=== PATIENT | male | born 1955 | race Caucasian/White ===

== ENCOUNTER 2025-05-04 13:57 | Outpatient (REF) | payer MEDICARE, SELFPAY ==
--- OUTSIDE RECORDS SUMMARY | 2025-05-04 15:16 | XMS_ITS ---
Author Organization [facility] Care Team Providers Care Fruit Shipper Name Role Phone Bagley, Aron Unavailable Unavailable Allergies and adverse reactions Code CodeSystem Substance Reaction Severity StartDate Concern Status 4053 RXNORM Erythromycin Unknown Unknown active Care Team Name Role Address Phone Organization Dates Aron Bagley [address] [place], [address], [place] States (Office): : [facility] 11/08/2015 - 11/12/2015 Immunizations Immunization Status Vaccine Details Vaccine Code CodeSystem Date Notes Influenza completed Influenza, high-dose, split virus, quadrivalent, injectable, preservative free 197 CVX created date: 11/10/2015 administer ed date: 07/22/2015 Pneumovax Dose 1 aborted cre ated date: 11/10/2015 consent date: 11/10/2015 AGE TB 2 Step Mantoux Skin Test completed tuberculin skin test; unspecified formulation lotNumber: [id number] expiry: 01/19/2017 Mfg: tuberculin Given 0.1 ml Right Forearm intradermally Step 1 of Multi-step with next step required 98 CVX created date: 11/09/2015 consent date: 11/09/2015 administer ed date: 11/09/2015 Educated by MARIAM on 11/09/2015 Prevnar-13 aborted created date: 11/10/2015 consent date: 11/10/2015 AGE Medications Section Medication Name Status Code CodeSystem Dose Route Frequency Admin Type Sig Text Start Date End Date DiphenhydrAMI NE HCl Tablet 25 MG active 5660627 RXNORM 25 mg Oral as needed PRN Give 25 mg by mouth as needed for Insomn ia PRN HS 2015 - Albuterol Sulfate Aerosol Powder Breath Activated 108 (90 Base) MCG/ACT active 7670648 RXNORM 2 puff Inhalat ion as needed PRN 2 puff inhale orally every 4 hours as needed for SOB/Wh eeze unsupe rvised self-a dminis tratio n 2015 - Glucagon Emergency Kit 1 MG active 009856 RXNORM 1 mg Intramu scular as needed PRN Inject 1 mg intram uscula rly as needed for hypogl ycemia For FS<60 and pt unable to take by mouth 2015 - Aspirin EC Tablet Delayed Release active 325 mg Oral every 12 hours Routine Give 325 mg by mouth every 12 hours for antico agulan t 2015 - Docusate Sodium Tablet active 100 mg Oral two times a day Routine Give 100 mg by mouth two times a day for Consti pation 2015 - FerrouSul Tablet active 325 mg Oral two times a day Routine Give 325 mg by mouth two times a day for Supple ment 2015 - Multivital Tablet active 1 tablet Oral two times a day Routine Give 1 tablet by mouth two times a day for Supple ment 2015 - Acetaminophen Tablet 325 MG active 923045 RXNORM 2 tablet Oral as needed PRN Give 2 tablet by mouth every 4 hours as needed for genera l discom fort NTE 3GM/24 H 2015 - Milk of Magnesia Concentrate Suspension active 30 ml Oral as needed PRN Give 30 ml by mouth as needed for Consti pation if no BM by 9th shift 2015 - Bisacodyl Suppository 10 MG active 294078 RXNORM 1 suppos itory Rectal as needed PRN Insert 1 suppos itory rectal ly as needed for Consti pation by the next shift if no result s from [facility] 2015 - Fleet Enema active 1 applic ation Rectal as needed PRN Insert 1 applic ation rectal ly as needed for Consti pation if no BM within 4 hours after SUPP admini stered . 2015 - CarBAMazepine ER Tablet Extended Release 12 Hour 400 MG active 553334 RXNORM 400 mg Oral two times a day Routine Give 400 mg by mouth two times a day for Nerve pain 2015 - DULoxetine HCl Capsule Delayed Release Particles 60 MG active 400694 RXNORM 60 mg Oral one time a day Routine Give 60 mg by mouth one time a day for Depres nury 2015 - Lipitor Tablet active 80 mg Oral at bedtime Routine Give 80 mg by mouth at bedtim e for Hyperl ipidem ia 2015 - MetFORMIN HCl Tablet active 1000 mg Oral two times a day Routine Give 1000 mg by mouth two times a day for DM 2015 - LOSARTAN POT 25MG TABLET active 746194 RXNORM 25 mg Oral at bedtime Routine Give 25 mg by mouth at bedtim e for HTN 2015 - OMEPRAZOLE 20MG CAPSULE DR active 540501 RXNORM 20 mg Dental in the morning Routine 20 mg dental in the mornin g for Ulcers 2015 - Sennosides-Do cusate Sodium Tablet 8.6-50 MG active 541132 RXNORM 2 tablet Oral at bedtime Routine Give 2 tablet by mouth at bedtim e for Consti pation 2015 - OxyCODONE HCl Tablet active 5 mg Oral as needed PRN Give 5 mg by mouth every 4 hours as needed for Pain modera te pain AND Give 10 mg by mouth every 4 hours as needed for Pain severe pain 2015 - 10 mg Oral as needed PRN Give 5 mg by mouth every 4 hours as needed for Pain modera te pain AND Give 10 mg by mouth every 4 hours as needed for Pain severe pain 2015 - Mental Status Section Date Assessment Total Score Description 11/12/2015 BIMS 15 cognitively int act PHQ-9 00 Problems Problem # Description Date of onset Resolved Date Code CodeSystem Concern Status 1 BILATERAL PRIMARY OSTEOARTHRITIS OF KNEE 11/08/20152017756161891 SNOMED CT active 2 ESSENTIAL (PRIMARY) HYPERTENSION 11/08/[address] active 3 GASTRO-ESOPHAGEAL REFLUX DISEASE WITHOUT ESOPHAGITIS 11/08/[address] active 4 HYPERLIPIDEMIA, UNSPECIFIED 11/08/[address] active 5 TYPE 2 DIABETES MELLITUS WITHOUT COMPLICATIONS 11/08/[address] active 6 UNSPECIFIED ASTHMA, UNCOMPLICATED 11/08/[address] active Reason for Referral No Reasons for Referral Entered Social History Social History Observation Description Start Date End Date Code Code System Current Smoking Status Tobacco smoking consumption unknown 922792486 SNOMED CT Sex Assigned At Male 1955 02548-3 [facility] Gender Identity Vital Signs Code Code System Vitals Name Values and Units Timing Information 9279-1 [facility] Respiratory Rate Value=22.0 Units=/m in 11/12/2015 8462-4 [facility] Blood Pressure-Diastolic Value=82 Un its=mmHg 11/12/2015 8480-6 [facility] Blood Pressure-Systolic Vegyh=967 Un its=mmHg 11/12/2015 8310-5 [facility] Body Temperature Value=99.0 Units= F 11/12/2015 8867-4 [facility] Heart rate Value=88.0 Units=/min 64167-8 [facility] O2 % dC Oximetry Value=96.0 Units= % 11/12/2015 00600-5 [facility] Weight Rlzsr=061.0 Units=Lbs 95634-7 [facility] Pain Level Value=6.0 11/12/2015 2339-0 [facility] Blood Sugar Ephuq=435.0 Units=mg/dL 11/12/2015
--- OUTSIDE RECORDS SUMMARY | 2025-05-04 15:16 | XMS_ITS | Patient Health Record ---
Author Organization [facility] Address [address] [address] Care Team Providers Care International Sales Representative Name Role Phone Abdon Poole Primary Care Provider Unavailabl Marcello Ochoa Unavailable [phone] Alcocer, Tosha Unavailable [phone] Allergies Allergen (clinical drug ingredient) Drug/Non Drug Allergy documented on EMR Reaction Allergy Type Onset Date Status erythromycin Erythromycin Unknown Drug Allergy A ctive Macrolides and Ketolides Unknown Drug Allergy Active Reason For Referral Reason YURI Referring Provider First Name Abdon Referring Provider Last Name Zulema Referred Organization [facility] Referred Provider Marcello Patel Referred Address [address] [facility], [place],[address], Referred Provider Specialty Pulmonology General Notes Nicci Ruelas 2023 12:25:31 PM >Left voicemajesseSuraj Alisha 10/20/2024 09:53:01 AM >Appt scheduled for Nov 06 2:45pm. Referral Priority Routine Medications Medication SIG (Take, Route, Frequency, Duration) Notes Start Date End Date Status Minocycline HCl 100 MG Capsule TAKE 1 CAPSULE BY MOUTH TWICE A DAY Oral; Duration: 45 Days Active Mag Glycinate 100 MG Tablet 600 mg Orall y twice daily Active BD Disp Needle 23G X 1 Miscellaneous USE DIRECTED TO INJECT WEEKLY IM; Duration: 90 Days Active Famotidine 20 MG Tablet TAKE 1 TABLET BY MOUTH 2 TIMES A DAY NEEDED FOR HEARTBURN. Oral; Duration: 90 Days Active DULoxetine HCl 60 MG Capsule Delayed Release Particles 1 capsule Orally Once a day; Duration: 30 days 11/06/2024 Active amLODIPine Besylate 5 MG Tablet Oral; Duration: 90 Days Acti ve Belbuca 750 MCG Film 1 film Buccal every 12 hrs; Duration: 30 days Active metFORMIN HCl 1000 MG Tablet 1 tablet wi th a meal Orally Once a day; Duration: 30 day(s) 11/06/2024 Active carBAMazepine 200 MG Tablet Oral; Duration: 90 Days Active Social History Tobacco Use: Social History Observation Description Date Details (start date - stop date) Never Smoker NA - NA Social History Tobacco Use: Social Info Question Answer Notes Tobacco Control (Standard) Tobacco use: Nonsmoker Additional Details Category Social Info Options Details Drug/Alcohol: Do you smoke marijuana? Den ies Do you drink alcohol? No Problems Problem Type SNOMED Code ICD Code Onset Dates Problem Status W/U Status Risk Notes Problem Type 2 diabetes mellitus with other specified complication (E11.69) Active confirmed Problem Mixed hyperlipidemia (364435981) Mixed hyperlipidemia (E78.2) Active confirmed Problem Chronic pain syndrome (358897724) Chronic pain syndrome (G89.4) Active confirmed Problem Essential hypertension (55449827) Essential hypertension (I10) Active confirmed Problem Seasonal allergy (475679017) Seasonal allergies (J30.2) Active confirmed Vital Signs Heart Rate 72 /min 04/03/2025 Temperature 98.2 degrees Fahrenheit 04/03/2025 Blood pressure diastolic 60 mm Hg 04/03/2025 Oximetry 92 % 04/03/2025 Height-cm 170.18 cm 02/02/2025 Weight-kg 78.02 kg 04/03/2025 Height 5 ft 7 in in 04/03/2025 Blood pressure systolic 130 mm Hg 04/03/2025 Weight 172 lbs 04/03/2025 BMI 26.94 kg/m2 04/03/2025 Procedures Procedure Date Ordered Date Performed Result Body Sit e ABG 04/03/2025 04/14/2025 N/A Encounters Encounter Location Date Provider Diagnosis [facility] [address] [place] [id number] 11/06/2024 Marcello Patel Mixed sleep apnea G47.39 ; Chronic pain syndrome G89.4 ; Transverse myelitis G37.3 and Essential hypertension I10 [facility] [address] [place] [phone] 02/02/2025 Tosha Alcocer Mixed sleep apnea G47.39 ; Chronic pain syndrome G89.4 ; Transverse myelitis G37.3 and Essential hypertension I10 [facility] [address] [address] 04/03/2025 Tosha Alcocer Mixed sleep apnea G47.39 ; Chronic pain syndrome G89.4 ; Transverse myelitis G37.3 ; Essential hypertension I10 and Seasonal allergies J30.2 [facility] [address] [address] 11/06/2024 Marcello Patel [facility] [address] [place] [address] 04/03/2025 Marcello Patel [facility] [address] [address] 04/14/2025 Marcello Patel Assessments Encounter Date Diagnosis (ICD Code) Assessment Notes Treatment Notes Treatment Clinical Notes Section Notes 11/06/2024 Mixed sleep apnea (ICD-10 - G47.39) Assessment & Plan: 1. Severe MIXED sleep apnea - Suspected high component of central sleep apnea, possibly Induced by buprenorphine; home sleep study limited in distinguishing central events. I recommended split in lab study but patient states that he cannot do it at all due to his severe back pain. He is not able to sleep on a regular bed. - Initiate auto CPAP therapy via DeNA, with in-person mask fitting and device education.I will follow him closely for residual apneic events. I recommended to discuss with his physician prescribing buprenorphine for alternative options if he continues to have central sleep apnea. - If unable to tolerate, consider BIPAP/ST, ASV (adaptive servo-ventilation) titration study in lab setting given high central apnea burden - Rn Field Case Manager on importance of adherence for MINIMUM -4 hours/night, EVERY NIGHT - Follow up after 1 month of therapy to review device data and assess for residual central apnea - Discussed hypoglossal nerve stimulator if unable to tolerate positive airway pressure therapy, however cautioned it would not address central apnea - Advised against use of ozone-based CPAP coffee grower due to risk of device malfunction, recommend gentle soap and water cleaning 2. Transverse myelitis - Manage CPAP therapy in the setting of positional challenges and neuropathic pain 3. Chronic pain - Consider slow buprenorphine taper if central apnea burden improves with CPAP - Avoid escalation of opioids which may worsen central sleep apnea 4. Hypertension - Continue current antihypertensive regimen - Potential for improvement in blood pressure control with treatment of sleep apnea 5. Tobacco use disorder - Rn Field Case Manager on smoking cessation, offer pharmacotherapy and behavioral support Recommended not to drive or operate machinery when drowsy 11/06/2024 Chronic pain syndrome (ICD-10 - G89.4) 02/02/2025 Mixed sleep apnea (ICD-10 - G47.39) Assessment & Plan: 1. Severe MIXED sleep apnea - Patient is compliant with his CPAP therapy and using 97% of the days with and average use of 6 hours daily over the last 30 months. Central apnea episodes also imropved from AI of 72 to 9.1. - Overall significant improvement noted with apnea hypopnea index Which improved from AHI of 51.1 to 12.4 - he overall doesnot feel significant improvement due to struggles with the CPAP mask but would encourage ongoing use, trail of different full face mask and f/u in next 6-8 weeks to ensure he is tolerating the mask well. - He has struggled with fullface mask due to irritation to tip of his nose and currently using nasal pillow however has been having issues with waking up with dry mouth, tried chin strap due causes discomfort. - provided him a sample of a fullface mask (AMENA) from the office to give it a try. - Suspected high component of central sleep apnea, possibly Induced by buprenorphine which he remains on 750 mcg bid regimen due to his transverse mylelitys; home sleep study limited in distinguishing central events. - has recommended split in lab study but patient states that he cannot do it at all due to his severe back pain. He is not able to sleep on a regular bed. - If unable to tolerate, consider BIPAP/ST, ASV (adaptive servo-ventilation) titration study in lab setting given high central apnea burden - Rn Field Case Manager on importance of adherence for MINIMUM -4 hours/night, EVERY NIGHT - Follow up after 2-3 month of therapy to review device data and assess for residual central apnea - Discussed hypoglossal nerve stimulator if unable to tolerate positive airway pressure therapy, however cautioned it would not address central apnea - Advised against use of ozone-based CPAP coffee grower due to risk of device malfunction, recommend gentle soap and water cleaning 2. Transverse myelitis with chronic pain - Manage CPAP therapy in the setting of positional challenges and neuropathic pain - Unable to wean of off buprenorphine, but central apnea burden seems to be improved with CPAP. - Avoid escalation of opioids which may worsen central sleep apnea 4. Hypertension - Continue current antihypertensive regimen - Potential for improvement in blood pressure control with treatment of sleep apnea 5. Tobacco use disorder - Rn Field Case Manager on smoking cessation. Recommended not to drive or operate machinery when drowsy 04/03/2025 Chronic pain syndrome (ICD-10 - G89.4) 04/03/2025 Mixed sleep apnea (ICD-10 - G47.39) Assessment & Plan: 1. Severe MIXED sleep apnea - Patient is not compliant with his CPAP therapy as he is not using it more than 4 hours daily with >4 h usage of 67% - He is not getting adequate therapy benefit as he is not using 67% of the days with and average use of 6 hours daily over the last 30 months. Central apnea episodes also imropved from AI of 72 to 9.1. - Overall significant improvement noted with apnea hypopnea index Which improved from AHI of 51.1 to 12.4 . - He has struggled with fullface mask due to irritation to tip of his nose and currently using nasal pillow however has been having issues with waking up with dry mouth, tried chin strap due causes discomfort. - provided him a sample of a fullface mask (AMENA) from the office to give it a try. - Consistently using it for more than 4 hours. We discussed the to get adequate benefit from his CPAP therapy he should be using it consistently for at least 7 hours nightly if possible. AHI still remains high, central apneas predominant and we discussed an option for in-lab titration study which he is not able to do due to his chronic pain and special bed requirement. He is in agreement to get ABG done to see if he is retaining CO2 more than 50 which would qualify him to transition to BiPAP therapy. We also discussed that changing the mask and using it more than 7 hours can improve his AHI. He will contact his DME to get a different nasal mask we discussed about AirFit N30 I as an option or can also try a fullface mask. He will follow-up with us in 3 months - He was given a sample of a fullface mask (AMENA) last visit as well - Suspected high component of central sleep apnea, possibly Induced by buprenorphine which he remains on 750 mcg bid regimen due to his transverse mylelitys; - If unable to tolerate, consider BIPAP/ST, ASV (adaptive servo-ventilation) titration study in lab setting given high central apnea burden - Counseled on importance of adherence for MINIMUM -4 hours/night, EVERY NIGHT - Follow up after 2-3 month of therapy to review device data and assess for residual central apnea - Discussed hypoglossal nerve stimulator if unable to tolerate positive airway pressure therapy, however cautioned it would not address central apnea 5. Tobacco use disorder - Rn Field Case Manager on smoking cessation. Recommended not to drive or operate machinery when drowsy 04/03/2025 Transverse myelitis (ICD-10 - G37.3) 2. Transverse myelitis with chronic pain - Manage CPAP therapy in the setting of positional challenges and neuropathic pain - Unable to wean of off buprenorphine, but central apnea burden seems to be improved with CPAP. - Avoid escalation of opioids which may worsen central sleep apnea 11/06/2024 Transverse myelitis (ICD-10 - G37.3) 02/02/2025 Chronic pain syndrome (ICD-10 - G89.4) 02/02/2025 Transverse myelitis (ICD-10 - G37.3) 11/06/2024 Essential hypertension (ICD-10 - I10) 04/03/2025 Essential hypertension (ICD-10 - I10) 4. Hypertension - Continue current antihypertensive regimen - Potential for improvement in blood pressure control with treatment of sleep apnea 04/03/2025 Seasonal allergies (ICD-10 - J30.2) Patient also has severe seasonal allergies he is seen by customs import specialist in [place]. He is getting allergy shots and says that despite this he has hard time controlling his allergies we discussed option for Singulair antihistamines like Xyzal however he has tried them in the past with no effect and is not interested. He also notes that due to worsening allergies his CPAP usage has also been interrupted on the days where he has severe allergy symptoms. 02/02/2025 Essential hypertension (ICD-10 - I10) 02/02/2025 Other Randal, Marcello Patel MD, directly supervised CARLOS Goins during the patient encounter. The patient was initially evaluated by me previously and has come for a follow up today. During today's visit, Tosha Alcocer performed patient history, physical exam, medication management under my direct supervision. I reviewed the patient's chart and agree with the assessment and treatment plan documented by Tosha Alcocer. Of note, some information is being carried forward from prior records for informational purposes only and is being cited so that efficiency, safety and quality of this patient's care is not compromised. Total time spent:30 minsDuring the day of the visit, time was spent including the following: Examining the patientChart review in preparation for the visitDocumenting in the patient recordReviewing Labs & RadiologyMedication Reconciliation 04/03/2025 Other I, Marcello Patel MD, directly supervised CARLOS Goins during the patient encounter. The patient was initially evaluated by me previously and has come for a follow up today. During today's visit, Tosha Alcocer performed patient history, physical exam, medication management under my direct supervision. I reviewed the patient's chart and agree with the assessment and treatment plan documented by Tosha Alcocer. Plan Of Treatment No Information Insurance Providers Payer Name Payer Address Payer Phone Subscriber Number Group Number Insured Name Patient Relationship to Insured Coverage Start Date Coverage End Date [employer] [address] [address] [place], [place] [id number] Max Garcia Self - patient is the insured 4 Medical (General) History Medical History History ICD Code Encounter for screening for malignant ne oplasm of prostate Z12.5 Encounter for screening for depression Z 13.31 History of falling Z91.81 Mixed hyperlipidemia E78.2 Type 2 diabetes mellitus with other spec ified complication E11.69
--- OUTSIDE RECORDS SUMMARY | 2025-05-04 15:16 | XMS_ITS ---
Author Name [facility] ([place], [place]) Organization Unknown Results Test Name/Text Value Interpretation Date Range Source GLYCOHEMOGLOBIN (A1C) 7.0 % Above high normal 0 5 4 - 5.6 [facility] MICROALBUMIN,URINE 0.7 mg/dL Normal 5 [facility] MICROALBUMIN RATIO 4.3 ug/mg Normal 5 - 30 [facility] CREATININE URINE 163.9 Normal 5 [facility] CALCIUM 9.7 mg/dL Normal 5 8.7 - 10.4 [facility] GLOBULIN 2.1 g/dL Below low normal 5 2.2 - 3.5 [facility] SODIUM 141.0 mmol/L Normal 5 136 - 145 [facility] GLUCOSE 139.0 mg/dL Above high normal 5 74 - 106 [facility] A/G RATIO 2.2 g/dL Normal 5 [facility] ALBUMIN 4.6 g/dL Normal 5 3.2 - 4.8 [facility] CO2 31.0 mmol/L Normal 5 20 - 31 [facility] BUN/CREAT.RATIO 19.1 Normal 5 [facility] ALT (SGPT) 18.0 U/L Normal 5 10 - 49 [facility] PROTEIN, TOTAL 6.7 g/dL Normal 5 5.7 - 8.2 [facility] ALKALINE PHOSPHATASE 81.0 U/L Normal 02 5 45 - 129 [facility] CHLORIDE 102.0 mmol/L Normal 5 98 - 107 [facility] BILIRUBIN,TOTAL 0.3 mg/dL Normal 5 0.3 - 1.2 [facility] AST (SGOT) 17.0 U/L Normal 5 0 - 34 [facility] CREATININE 1.1 mg/dL Normal 5 0.7 - 1.3 [facility] BUN 21.0 mg/dL Normal 5 9 - 23 [facility] POTASSIUM SERUM 5.2 mmol/L Above high normal 02 5 3.5 - 5.1 [facility] PATIENT FASTING? YES Normal 5 [facility] CHOLESTEROL 139.0 mg/dL Normal 5 - 200 [facility] HDL 67.0 mg/dL Normal 5 60 - [facility] TRIGLYCERIDE WITH LDLD REFLEX 95.0 mg/dL Normal 5 - 150 [facility] LDL 53.0 mg/dL Normal 5 - 160 [facility] GFRE 71.0 Normal 5 60 - [facility] GFRE 55.0 Below low normal 5 60 - [facility] POTASSIUM SERUM 5.6 mmol/L Above high normal 02 5 3.5 - 5.1 [facility] BILIRUBIN,TOTAL 0.4 mg/dL Normal 5 0.3 - 1.2 [facility] CO2 31.0 mmol/L Normal 5 20 - 31 [facility] A/G RATIO 1.9 g/dL Normal 5 [facility] ALBUMIN 4.8 g/dL Normal 5 3.2 - 4.8 [facility] ALT (SGPT) 33.0 U/L Normal 5 10 - 49 [facility] GLOBULIN 2.5 g/dL Normal 5 2.2 - 3.5 [facility] CREATININE 1.37 mg/dL Above high normal 5 0.7 - 1.3 [facility] BUN 37.0 mg/dL Above high normal 5 9 - 23 [facility] GLUCOSE 194.0 mg/dL Above high normal 5 74 - 106 [facility] PROTEIN, TOTAL 7.3 g/dL Normal 5 5.7 - 8.2 [facility] CALCIUM 10.9 mg/dL Above high normal 5 8.7 - 10.4 [facility] SODIUM 141.0 mmol/L Normal 5 136 - 145 [facility] AST (SGOT) 29.0 U/L Normal 5 0 - 34 [facility] CHLORIDE 102.0 mmol/L Normal 5 98 - 107 [facility] BUN/CREAT.RATIO 27.0 Normal 5 [facility] ALKALINE PHOSPHATASE 63.0 U/L Normal 02 5 45 - 129 [facility] PATIENT FASTING? NO Normal 5 [facility] LYMPHS 20.0 % Normal 5 16 - 50 [facility] MONOS 5.0 % Normal 5 0 - 12 [facility] SEGS 68.0 % Normal 5 23 - 78 [facility] OVALOCYTES 1+ Critically abnormal 12/04/19 2 5 [facility] EOSINOPHILS 7.0 % Above high normal 5 0 - 6 [facility] MANUAL DIFF ADDED * Normal 5 [facility] ABSOLUTE IMMATURE GRANULOCYTES 0.0 K/uL Normal 5 0 - 0.3 [facility] NUCLEATED RBC 0.0 % Normal 5 0 - 0.2 [facility] ABSOLUTE MONOS 0.4 K/uL Normal 5 0.2 - 1.5 [facility] ABSOLUTE NUCLEATED RBC 0.0 K/uL Normal 5 0 - 0.012 [facility] MCV 88.0 fL Normal 5 83 - 102 [facility] HGB 17.3 g/dL Normal 5 13.5 - 18 [facility] RDW 14.6 % Above high normal 5 11.1 - 13.3 [facility] ABSOLUTE LYMPHS 1.4 K/uL Below low normal 12/04/19 2 5 1.5 - 4.9 [facility] PLATELET COUNT 294.0 K/uL Normal 5 150 - 480 [facility] ABSOLUTE GRANULOCYTES 4.0 K/uL Normal 5 2.2 - 7.3 [facility] WBC 6.4 K/uL Normal 5 3.7 - 10.3 [facility] MPV 9.0 fL Normal 5 8 - 12 [facility] HCT 54.3 % Above high normal 5 40 - 52 [facility] ABSOLUTE EOS 0.5 K/uL Normal 5 0 - 0.7 [facility] ABSOLUTE BASO 0.1 K/uL Normal 5 0 - 0.2 [facility] RBC 6.17 M/uL Above high normal 5 4.3 - 6 [facility] MCHC 31.9 g/dL Normal 5 31 - 36 [facility] MCH 28.0 PG Normal 5 27 - 34 [facility] GLYCOHEMOGLOBIN (A1C) 7.2 % Above high normal 0 5 4 - 5.6 [facility] BASOPHILS 1.0 % Normal 5 0 - 2 [facility] RC MORPHOLOGY NORMAL Normal 5 [facility] MONOS 9.0 % Normal 5 0 - 12 [facility] SEGS 52.0 % Normal 5 23 - 78 [facility] EOSINOPHILS 9.0 % Above high normal 5 0 - 6 [facility] LYMPHS 29.0 % Normal 5 16 - 50 [facility] MANUAL DIFF ADDED * Normal 5 [facility] NUCLEATED RBC 0.0 % Normal 5 0 - 0.2 [facility] ABSOLUTE MONOS 0.5 K/uL Normal 5 0.2 - 1.5 [facility] ABSOLUTE NUCLEATED RBC 0.0 K/uL Normal 5 0 - 0.012 [facility] ABSOLUTE EOS 0.6 K/uL Normal 5 0 - 0.7 [facility] ABSOLUTE IMMATURE GRANULOCYTES 0.0 K/uL Normal 5 0 - 0.3 [facility] ABSOLUTE LYMPHS 2.1 K/uL Normal 5 1.5 - 4.9 [facility] ABSOLUTE BASO 0.0 K/uL Normal 5 0 - 0.2 [facility] PLATELET COUNT 288.0 K/uL Normal 5 150 - 480 [facility] RDW 14.2 % Above high normal 5 11.1 - 13.3 [facility] HCT 55.2 % Above high normal 5 40 - 52 [facility] MCV 87.0 fL Normal 5 83 - 102 [facility] MPV 9.0 fL Normal 5 8 - 12 [facility] ABSOLUTE GRANULOCYTES 3.0 K/uL Normal 5 2.2 - 7.3 [facility] RBC 6.37 M/uL Above high normal 5 4.3 - 6 [facility] MCHC 32.4 g/dL Normal 5 31 - 36 [facility] MCH 28.0 PG Normal 5 27 - 34 [facility] HGB 17.9 g/dL Normal 5 13.5 - 18 [facility] WBC 6.2 K/uL Normal 5 3.7 - 10.3 [facility] HDL 74.0 mg/dL Above high normal 5 40 - 60 [facility] TRIGLYCERIDE WITH LDLD REFLEX 132.0 mg/dL Normal 5 - 150 [facility] LDL 91.0 mg/dL Normal 5 - 160 [facility] CHOLESTEROL 191.0 mg/dL Normal 5 - 200 [facility] TSH 4.1 uIU/mL Normal 5 0.55 - 4.78 [facility] GFRE 57.0 Below low normal 5 60 - [facility] A/G RATIO 2.0 g/dL Normal 5 [facility] AST (SGOT) 25.0 U/L Normal 5 0 - 34 [facility] ALKALINE PHOSPHATASE 59.0 U/L Normal 02 5 45 - 129 [facility] BUN 29.0 mg/dL Above high normal 5 9 - 23 [facility] POTASSIUM SERUM 4.9 mmol/L Normal 5 3.5 - 5.1 [facility] CREATININE 1.32 mg/dL Above high normal 5 0.7 - 1.3 [facility] BILIRUBIN,TOTAL 0.3 mg/dL Normal 5 0.3 - 1.2 [facility] SODIUM 140.0 mmol/L Normal 5 136 - 145 [facility] CHLORIDE 100.0 mmol/L Normal 5 98 - 107 [facility] ALBUMIN 4.6 g/dL Normal 5 3.2 - 4.8 [facility] ALT (SGPT) 29.0 U/L Normal 5 10 - 49 [facility] CO2 32.0 mmol/L Above high normal 5 20 - 31 [facility] PROTEIN, TOTAL 6.9 g/dL Normal 5 5.7 - 8.2 [facility] BUN/CREAT.RATIO 22.[address] [facility] [address] 133.0 mg/dL Above high normal 5 74 - 106 [facility] CALCIUM 10.8 mg/dL Above high normal 5 8.7 - 10.4 [facility] GLOBULIN 2.3 g/dL Normal 5 2.2 - 3.5 [facility] PATIENT FASTING? YES Normal 5 [facility] PROSTATE SPECIFIC ANTIGEN 2.94 ng/mL Normal 5 0 - 4 [facility] VITAMIN D2,1,25 (OH)2 <8 Normal 4 - [facility] VITAMIN D,1,25(OH)2,TOTAL 36.0 pg/mL Normal 4 18 - 72 [facility] VITAMIN D3,1,25 (OH)2 36.0 pg/mL Normal 4 - [facility] PTH INTACT 14.6 pg/mL Below low normal 4 18.4 - 80 [facility] VITAMIN D (25-HYDROXY) 73.0 ng/mL Normal 4 30 - 100 [facility] MICROALBUMIN RATIO 7.6 ug/mg Normal 4 - 30 [facility] MICROALBUMIN,URINE 1.0 mg/dL Normal 4 [facility] CREATININE URINE 131.[address] [address] GF[facility] 58.0 Below low normal 4 60 - [facility] CHLORIDE 101.0 mmol/L Normal 4 98 - 107 [facility] CO2 34.0 mmol/L Above high normal 4 20 - 31 [facility] CREATININE 1.31 mg/dL Above high normal 4 0.7 - 1.3 [facility] GLUCOSE 140.0 mg/dL Above high normal 4 74 - 106 [facility] SODIUM 141.0 mmol/L Normal 4 136 - 145 [facility] ALBUMIN 5.0 g/dL Above high normal 4 3.2 - 4.8 [facility] PHOSPHOROUS 3.5 mg/dL Normal 4 2.4 - 5.1 [facility] POTASSIUM SERUM 5.1 mmol/L Normal 4 3.5 - 5.1 [facility] CALCIUM 10.7 mg/dL Above high normal 4 8.7 - 10.4 [facility] BUN 28.0 mg/dL Above high normal 4 9 - 23 [facility] PATIENT FASTING? NO Normal [address] [facility] HGB 17.3 g/dL Normal 4 13.5 - 18 [facility] HCT 55.1 % Above high normal 4 40 - 52 [facility] GLUCOSE BLDC GLUCOMTR MCNC 141.0 mg/dL Normal 4 70 - 199 [facility] COMPLEMENT,TOTAL(CH50 ) 60.0 U/mL Normal 4 31 - 60 [facility] C3,COMPLEMENT 152.0 mg/dL Normal 4 82 - 185 [facility] ALEA SCREEN, IFA Positive Abnormal 4 - [facility] C4, SERUM 38.0 mg/dL Normal 4 15 - 53 [facility] VITAMIN D2,1,25 (OH)2 <8 Normal 4 - [facility] VITAMIN D,1,25(OH)2,TOTAL 27.0 pg/mL Normal 4 18 - 72 [facility] VITAMIN D3,1,25 (OH)2 27.0 pg/mL Normal 4 - [facility] KAPPA LIGHT CHAIN, FREE, S 20.4 mg/L Critically abnormal 4 3.3 - 19.4 [facility] LAMBDA LIGHT CHAIN, FREE, S 14.5 mg/L Normal 4 5.7 - 26.3 [facility] KAPPA/LAMBDA, FREE RATIO 1.41 Normal 4 0.26 - 1.65 [facility] PROTEINASE-3 ANTIBODY Normal 4 [facility] ANCA SCREEN Negative Normal 4 - [facility] PROTE[facility]-3 ANTIBODY <1.0 Normal 4 - 1 [facility] MYELOPEROXIDASE AB <1.0 Normal 4 - 1 [facility] GFRE 54.0 Below low normal 4 60 - [facility] SPEP/MARILIA INTERPRETATION See note Normal [address] [address] [facility] ALBUMIN (PEP) 4.34 g/dL Normal 4 3.34 - 4.42 [facility] BETA GLOBULIN (PEP) 1.09 g/dL Normal 08/08/20 2 4 0.75 - 1.35 [facility] GAMMA GLOBULIN (PEP) 1.21 g/dL Normal 02 4 0.7 - 1.74 [facility] ALPHA 2 GLOBULIN (PEP) 0.79 g/dL Normal 4 0.73 - 1.45 [facility] ALPHA 1 GLOBULIN (PEP) 0.27 g/dL Normal 4 0.18 - 0.34 [facility] PROTEIN, TOTAL 7.7 g/dL Normal 4 6.4 - 8.[address] [address] [facility] 118.0 mg/dL Above high normal 4 74 - 100 [facility] ALBUMIN 4.2 g/dL Normal 4 3.4 - 5 [facility] PHOSPHOROUS 4.3 mg/dL Normal 4 2.5 - 4.9 [facility] POTASSIUM SERUM 5.4 mmol/L Above high normal 02 4 3.5 - 5.1 [facility] CO2 28.0 mmol/L Normal 4 21 - 32 [facility] CALCIUM 11.4 mg/dL Above high normal 4 8.5 - 10.1 [facility] CREATININE 1.4 mg/dL Above high normal 4 0.55 - 1.3 [facility] BUN 34.0 mg/dL Above high normal 4 7 - 18 [facility] SODIUM 140.0 mmol/L Normal 4 136 - 145 [facility] CHLORIDE 105.0 mmol/L Normal 4 98 - 107 [facility] PATIENT FASTING? NO Normal 4 [facility] PTH INTACT 15.2 pg/mL Below low normal 4 18.4 - 88 [facility] RBC 6.6 M/uL Above high normal 4 4.3 - 6 [facility] MCV 89.0 fL Normal 4 83 - 102 [facility] WBC 5.4 K/uL Normal 4 3.7 - 10.3 [facility] NUCLEATED RBC 0.0 % Normal 4 0 - 0.2 [facility] ABSOLUTE EOS 0.3 K/uL Normal 4 0 - 0.7 [facility] HGB 18.9 g/dL Above high normal 4 13.5 - 18 [facility] ABSOLUTE GRANULOCYTES 3.8 K/uL Normal 4 2.2 - 7.3 [facility] ABSOLUTE BASO 0.0 K/uL Normal 4 0 - 0.2 [facility] ABSOLUTE IMMATURE GRANULOCYTES 0.0 K/uL Normal 4 0 - 0.3 [facility] MPV 10.0 fL Normal 4 8 - 12 [facility] ABSOLUTE LYMPHS 0.8 K/uL Below low normal 08/07/20 2 4 1.5 - 4.9 [facility] MCH 29.0 PG Normal 4 27 - 34 [facility] ABSOLUTE MONOS 0.5 K/uL Normal 4 0.2 - 1.5 [facility] RDW 15.5 % Above high normal 4 11.1 - 13.3 [facility] MCHC 32.3 g/dL Normal 4 31 - 36 [facility] ABSOLUTE NUCLEATED RBC 0.0 K/uL Normal 4 0 - 0.012 [facility] PLATELET COUNT 350.0 K/uL Normal 4 150 - 480 [facility] HCT 58.5 % Above high normal 4 40 - 52 [facility] MONOS 7.0 % Normal 4 0 - 12 [facility] LYMPHS 14.0 % Below low normal 4 16 - 50 [facility] EOSINOPHILS 5.0 % Normal 4 0 - 6 [facility] RC MORPHOLOGY NORMAL Normal 4 [facility] BAND 1.0 % Normal 4 0 - 15 [facility] SEGS 73.0 % Normal 4 23 - 78 [facility] MANUAL DIFF ADDED * Normal 4 [facility] CREATININE URINE 158.0 mg/dL Normal 4 [facility] MICROALBUMIN RATIO 22.8 ug/mg CR Normal 08/08/20 2 4 - 30 [facility] MICROALBUMIN,URINE 3.6 mg/dL Normal 4 [facility] WBC 0.0 /HPF Normal 4 0 - 0 [facility] EPI CELLS OCCASIONAL Normal 4 [facility] RBC 0.0 /HPF Normal 4 0 - 0 [facility] GLUCOSE Negative Normal 4 - [facility] NITRITE Negative Normal 4 - [facility] PH 5.5 Normal 4 5 - 8 [facility] COLOR Dark Yellow Normal 4 - [facility] SPECIFIC GRAVITY 1.02 Normal 4 1.005 - 1.03 [facility] UROBILINOGEN 0.2 mg/dL Normal 4 0 - 1 [facility] KETONES Trace Critically abnormal 08/07/20 2 4 - [facility] BLOOD Negative Normal 4 - [facility] BILIRUBIN NEG Normal 4 - [facility] PROTEIN Negative Normal 4 - [facility] APPEARANCE Clear Normal 4 - [facility] LEUK. ESTERASE Negative Normal 4 - [facility] ERYTHROPOIETIN (EPO) 14.1 mIU/mL Normal 02 4 2.6 - 18.5 [facility] RBC 6.14 M/uL Above high normal 4 4.3 - 6 [facility] WBC 5.9 K/uL Normal 4 3.7 - 10.3 [facility] EOSINOPHILS 8.0 % Above high normal 4 0 - 6 [facility] ABSOLUTE EOS 0.5 K/uL Normal 4 0 - 0.7 [facility] ABSOLUTE LYMPHS 1.2 K/uL Below low normal 07/07/20 2 4 1.5 - 4.9 [facility] MCHC 32.7 g/dL Normal 4 31 - 36 [facility] IMMATURE GRANULOCYTES 0.0 % Normal 4 0 - 0.45 [facility] MPV 9.0 fL Normal 4 8 - 12 [facility] PLATELET COUNT 276.0 K/uL Normal 4 150 - 480 [facility] LYMPHS 20.0 % Normal 4 16 - 50 [facility] ABSOLUTE MONOS 0.4 K/uL Normal 4 0.2 - 1.5 [facility] HGB 17.7 g/dL Normal 4 13.5 - 18 [facility] HCT 54.1 % Above high normal 4 40 - 52 [facility] GRANULOCYTES 64.0 % Normal 4 23 - 78 [facility] ABSOLUTE GRANULOCYTES 3.8 K/uL Normal 4 2.2 - 7.3 [facility] MCV 88.0 fL Normal 4 83 - 102 [facility] MONOCYTES 8.0 % Normal 4 0 - 12 [facility] MCH 29.0 PG Normal 4 27 - 34 [facility] BASOPHILS 1.0 % Normal 4 0 - 2 [facility] ABSOLUTE NUCLEATED RBC 0.0 K/uL Normal 4 0 - 0.012 [facility] NUCLEATED RBC 0.0 % Normal 4 0 - 0.2 [facility] ABSOLUTE BASO 0.0 K/uL Normal 4 0 - 0.2 [facility] RDW 14.6 % Above high normal 4 11.1 - 13.3 [facility] ABSOLUTE IMMATURE GRANULOCYTES 0.0 K/uL Normal 4 0 - 0.3 [facility] COMMENT * Normal 4 [facility] JAK2 GENE MUTATION SEE SEPARATE REPORT Normal 4 [facility] URIC ACID 4.3 mg/dL Normal 4 3.5 - 7.2 [facility] SPEP/MARILIA INTERPRETATION See note Normal 4 [facility] BETA GLOBULIN (PEP) 1.02 g/dL Normal 05/22/20 2 4 0.75 - 1.35 [facility] GAMMA GLOBULIN (PEP) 1.21 g/dL Normal 02 4 0.7 - 1.74 [facility] ALPHA 1 GLOBULIN (PEP) 0.17 g/dL Normal 4 0.18 - 0.34 [facility] ALBUMIN (PEP) 3.88 g/dL Normal 4 3.34 - 4.42 [facility] ALPHA 2 GLOBULIN (PEP) 0.72 g/dL Normal 4 0.73 - 1.45 [facility] PROTEIN, TOTAL 7.0 g/dL Normal 4 6.4 - 8.2 [facility] MCV 86.0 fL Normal 4 83 - 102 [facility] EOSINOPHILS 4.0 % Normal 4 0 - 6 [facility] MPV 9.0 fL Normal 4 8 - 12 [facility] NUCLEATED RBC 0.0 % Normal 4 0 - 0.2 [facility] ABSOLUTE EOS 0.2 K/uL Normal 4 0 - 0.7 [facility] GRANULOCYTES 71.0 % Normal 4 23 - 78 [facility] ABSOLUTE GRANULOCYTES 3.8 K/uL Normal 4 2.2 - 7.3 [facility] ABSOLUTE IMMATURE GRANULOCYTES 0.0 K/uL Normal 4 0 - 0.3 [facility] ABSOLUTE NUCLEATED RBC 0.0 K/uL Normal 4 0 - 0.012 [facility] WBC 5.4 K/uL Normal 4 3.7 - 10.3 [facility] ABSOLUTE LYMPHS 0.9 K/uL Below low normal 05/21/20 2 4 1.5 - 4.9 [facility] RBC 6.27 M/uL Above high normal 4 4.3 - 6 [facility] HGB 18.1 g/dL Above high normal 4 13.5 - 18 [facility] HCT 54.2 % Above high normal 4 40 - 52 [facility] MONOCYTES 8.0 % Normal 4 0 - 12 [facility] ABSOLUTE BASO 0.0 K/uL Normal 4 0 - 0.2 [facility] MCHC 33.4 g/dL Normal 4 31 - 36 [facility] ABSOLUTE MONOS 0.4 K/uL Normal 4 0.2 - 1.5 [facility] LYMPHS 17.0 % Normal 4 16 - 50 [facility] PLATELET COUNT 258.0 K/uL Normal 4 150 - 480 [facility] RDW 13.7 % Above high normal 4 11.1 - 13.3 [facility] MCH 29.0 PG Normal 4 27 - 34 [facility] BASOPHILS 1.0 % Normal 4 0 - 2 [facility] IMMATURE GRANULOCYTES 0.0 % Normal 4 0 - 0.45 [facility] COMMENT * Normal 4 [facility] GFRE 57.0 Below low normal 4 60 - [facility] CALCIUM 10.2 mg/dL Above high normal 4 8.5 - 10.1 [facility] POTASSIUM SERUM 4.7 mmol/L Normal 4 3.5 - 5.1 [facility] GLUCOSE 171.0 mg/dL Above high normal 4 74 - 100 [facility] CREATININE 1.33 mg/dL Above high normal 4 0.55 - 1.3 [facility] CHLORIDE 100.0 mmol/L Normal 4 98 - 107 [facility] BUN 44.0 mg/dL Above high normal 4 7 - 18 [facility] CO2 32.0 mmol/L Normal 4 21 - 32 [facility] SODIUM 140.0 mmol/L Normal 4 136 - 145 [facility] PATIENT FASTING? NO Normal 4 [facility] SEGS 62.0 % Normal 4 23 - 78 [facility] BASOPHILS 2.0 % Normal 4 0 - 2 [facility] RC MORPHOLOGY NORMAL Normal 4 [facility] MONOS 15.0 % Above high normal 4 0 - 12 [facility] EOSINOPHILS 4.0 % Normal 4 0 - 6 [facility] LYMPHS 17.0 % Normal 4 16 - 50 [facility] MANUAL DIFF ADDED * Normal 4 [facility] ABSOLUTE LYMPHS 1.2 K/uL Below low normal 03/27/20 2 4 1.5 - 4.9 [facility] HGB 18.0 g/dL Normal 4 13.5 - 18 [facility] WBC 5.6 K/uL Normal 4 3.7 - 10.3 [facility] MCV 88.0 fL Significant carr ge up 4 83 - 102 [facility] MPV 9.0 fL Normal 4 8 - 12 [facility] RBC 6.38 M/uL Above high normal 4 4.3 - 6 [facility] ABSOLUTE GRANULOCYTES 3.6 K/uL Normal 4 2.2 - 7.3 [facility] MCHC 32.1 g/dL Normal 4 31 - 36 [facility] ABSOLUTE IMMATURE GRANULOCYTES 0.0 K/uL Normal 4 0 - 0.3 [facility] ABSOLUTE NUCLEATED RBC 0.0 K/uL Normal 4 0 - 0.012 [facility] MCH 28.0 PG Normal 4 27 - 34 [facility] PLATELET COUNT 354.0 K/uL Normal 4 150 - 480 [facility] HCT 56.0 % Above high normal 4 40 - 52 [facility] ABSOLUTE BASO 0.0 K/uL Normal 4 0 - 0.2 [facility] ABSOLUTE EOS 0.3 K/uL Normal 4 0 - 0.7 [facility] NUCLEATED RBC 0.0 % Normal 4 0 - 0.2 [facility] RDW 15.3 % Above high normal 4 11.1 - 13.3 [facility] ABSOLUTE MONOS 0.5 K/uL Normal 4 0.2 - 1.5 [facility] MICROALBUMIN,URINE 3.3 mg/dL Normal 4 [facility] CREATININE URINE 146.0 mg/dL Normal [address] RATIO 22.6 ug/mg CR Normal 03/27/20 2 4 - 30 [facility] GLYCOHEMOGLOBIN (A1C) 6.9 % Above high normal 0 4 4 - 5.6 [facility] GFRE 52.0 Below low normal 4 60 - [facility] VITAMIN D (25-HYDROXY) 68.6 ng/mL Normal 4 30 - 100 [facility] HDL 74.0 mg/dL Normal 4 - [facility] TRIGLYCERIDE WITH LDLD REFLEX 94.0 mg/dL Normal 4 - 150 [facility] LDL 102.0 Normal 4 0 - 129 [facility] CHOLESTEROL 195.0 mg/dL Normal 4 - 200 [facility] GLOBULIN 3.7 g/dL Normal 4 2.4 - 4.2 [facility] POTASSIUM SERUM 5.2 mmol/L Above high normal 02 4 3.5 - 5.1 [facility] ALBUMIN 3.7 g/dL Normal 4 3.4 - 5 [facility] BUN/CREAT.RATIO 22.2 Normal 4 [facility] CO2 33.0 mmol/L Above high normal 4 21 - 32 [facility] PROTEIN, TOTAL 7.4 g/dL Normal 4 6.4 - 8.2 [facility] CREATININE 1.44 mg/dL Above high normal 4 0.55 - 1.3 [facility] ALKALINE PHOSPHATASE 74.0 U/L Normal 02 4 50 - 136 [facility] A/G RATIO 1.0 g/dL Normal 4 [facility] CALCIUM 10.0 mg/dL Normal 4 8.5 - 10.1 [facility] CHLORIDE 104.0 mmol/L Normal 4 98 - 107 [facility] GLUCOSE 137.0 mg/dL Above high normal 4 74 - 100 [facility] BILIRUBIN,TOTAL 0.5 mg/dL Normal 4 0.2 - 1 [facility] ALT (SGPT) 26.0 U/L Normal 4 12 - 78 [facility] AST (SGOT) 25.0 U/L Normal 4 15 - 37 [facility] BUN 32.0 mg/dL Above high normal 4 7 - 18 [facility] SODIUM 141.0 mmol/L Normal 4 136 - 145 [facility] PATIENT FASTING? YES Normal 4 [facility] History of Medication Use Medication Directions Dispensed Refills Start Date End Date Status betamethasone acetate-betamethasone sodium phosphate (CELESTONE) injection 12 mg 12 mg, Intra-articular, Once PRN Procedure, Starting on Sun02/25/25 at 1345, For 1 dose 02/26/20 25 completed HYDROmorphone (DILAUDID) 2 MG tablet Take 2 tablets (4 mg total) by mouth 2 (two) times a day as needed for severe pain. Max Daily Amount: 8 mg 5 active DULoxetine (CYMBALTA) 30 MG capsule TAKE 1 CAPSULE (30 MG TOTAL) BY MOUTH EVERY EVENING. CONTINUE 60MG EVERY MORNING 5 active DULoxetine (CYMBALTA) 30 MG capsule Take 1 capsule (30 mg total) by mouth every evening. Continue 60mg q AM 5 active buprenorphine hcl ([place]) 750 MCG buccal film Apply 1 Film (750 mcg total) to cheek twice daily (every 12 hours). Max Daily Amount: 1,500 mcg 5 active methylPREDNISolone (MEDROL DOSEPAK) 4 MG tablet follow package directions 4 active HYDROmorphone (DILAUDID) 2 MG tablet Take 4 tablets (8 mg total) by mouth daily as needed for severe pain. Max Daily Amount: 8 mg 4 09/30/20 24 active HYDROmorphone (DILAUDID) 8 MG tablet Take 1 tablet (8 mg total) by mouth daily as needed for severe pain. Max Daily Amount: 8 mg 4 10/02/20 24 aborted HYDROmorphone (DILAUDID) 4 MG tablet Take 2 tablets (8 mg total) by mouth 3 times daily (every 8 hours) as needed for severe pain. Max Daily Amount: 24 mg 4 09/01/20 24 aborted pantoprazole (PROTONIX) 20 MG tablet TAKE 1 TABLET BY MOUTH EVERY DAY 4 active famotidine (PEPCID) 20 MG tablet TAKE 1 TABLET BY MOUTH 2 TIMES A DAY NEEDED FOR HEARTBURN. 4 active naloxone (NARCAN) 4 mg/0.1 mL Liquid nasal spray device [place] 4 mg as a single dose; may repeat every 2 to 3 minutes in alternating nostrils until medical assistance becomes available. Call EMS. 4 active buprenorphine hcl (BELBUCA) 300 MCG buccal film Take per instructions with the 150mcg if needed per the following schedule: Day1: 150mcg BID, Day2: 300mcg BID, Day3: 450 (300+15) mcg BID, Day4: start 600mcg BID films 4 03/21/20 24 active buprenorphine hcl (BELBUCA) 600 MCG buccal film Apply 1 Film (600 mcg total) to cheek twice daily (every 12 hours). Max Daily Amount: 1,200 mcg 4 03/21/20 24 aborted cephalexin (KEFLEX) 500 MG capsule Take 1 capsule (500 mg total) by mouth 2 (two) times a day. 4 12/23/19 24 active cefadroxil (DURICEF) 500 mg capsule TAKE 1 CAPSULE BY MOUTH TWICE A DAY 3 07/28/20 23 active minocycline (MINOCIN) 100 MG capsule Take 1 capsule (100 mg total) by mouth 2 times a day. 3 10/23/19 25 active HYDROmorphone (DILAUDID) 2 MG tablet Take 1-2 tablets (2-4 mg total) by mouth 4 times daily (every 6 hours) as needed for severe pain. Max Daily Amount: 16 mg 3 12/18/19 24 aborted senna-docusate (SENNA-S) 8.6-50 MG Take 2 tablets by mouth nightly as needed for constipation. 3 08/28/20 23 active acetaminophen (TYLENOL) 325 MG tablet Take 3 tablets (975 mg total) by mouth 3 times daily (every 8 hours) as needed for mild pain or moderate pain. 3 08/05/20 23 active polyethylene glycol (miraLAx) 17 g packet Take 1 packet (17 g total) by mouth daily as needed for constipation (if no BM by postopday #1). 3 05/21/20 23 active aspirin enteric coated (ECOTRIN LOW STRENGTH) 81 MG EC tablet Take 1 tablet (81 mg total) by mouth every 12 (twelve) hours around the clock. 3 05/19/20 23 active losartan-hydroCHLOROthi azide (HYZAAR) 100-12.5 MG per tablet Take 1 tablet by mouth every morning. 3 active valACYclovir (VALTREX) 1000 MG tablet Take 1 tablet (1,000 mg total) by mouth 2 (two) times a day as needed. Take for 2 doses 04/17/202 3 active PANTOprazole (PROTONIX) 20 MG tablet Take 1 tablet (20 mg total) by mouth every morning. 3 active testosterone cypionate (DEPO-TESTOSTERONE CYPIONATE) 200 mg/mL injection INJECT 0.75 MILLILITER (75 MG) BY INTRAMUSCULAR ROUTE EVERY 1 WEEKS 2 active vilazodone (VIIBRYD) 20 MG tablet Take 1 tablet (20 mg total) by mouth daily. 2 active HYDROmorphone (DILAUDID) 4 MG tablet Take 1-2 tabs twice a day for severe pain Maximum 3 tabs a day 1 08/17/20 aborted bisacodyl (Dulcolax) 5 MG EC tablet Take as directed my MD office preprocedure 1 active polyethylene glycol (GLYCOLAX) 17 GM/SCOOP powder Take 17 g by mouth daily. As part of colonoscopy prep, start MiraLAX 17 g mixed in 8 ounces of water for each of the 14 days prior to colonoscopy. 1 active lisinopril (PRINIVIL,ZeSTRIL) 5 MG tablet 1 active minocycline (MINOCIN) 100 MG capsule 0 active carBAMazepine (TEGretol) 200 MG tablet Take 2 tablets (400 mg total) by mouth 2 (two) times a day. 9 04/21/20 24 active LIPITOR 40 MG tablet Take 40 mg by mouth every evening. 9 07/18/20 23 active NATO CONTOUR TEST test strip 9 active Dutasteride-Tamsulosin HCl (CALLY) 0.5-0.4 MG capsule Take 1 capsule by mouth daily. 9 08/17/20 22 active metFORMIN (GLUCOPHAGE) tablet 1000 mg Take 1 tablet (1,000 mg total) by mouth 2 (two) times a day with meals. 6 active duloxetine (CYMBALTA) DR capsule 60 mg Take 1 capsule (60 mg total) by mouth 2 (two) times a day. 6 active FLOVENT HFA 44 MCG/ACT inhaler Inhale 2 puffs into the lungs as needed. 6 active VENTOLIN HFA 108 (90 BASE) MCG/ACT inhaler INHALE 2 PUFFS 1 MINUTE APART EVERY 4 HOURS NEEDED 6 active LIPITOR 80 MG tablet Take 0.5 tablets (40 mg total) by mouth every night at bedtime. 6 active albuterol (PROVENTIL HFA; VENTOLIN HFA) 108 (90 Base) MCG/ACT inhaler Inhale 2 puffs 4 times daily (every 6 hours) as needed for wheezing. active amLODIPine (NORVASC) tablet 5 mg Take 1 tablet (5 mg total) by mouth daily. active Buprenorphine HCl (Belbuca) [address] 750 mcg inside cheek 2 (two) times a day. active ferrous sulfate 325 (65 FE) MG tablet Take 1 tablet (325 mg total) by mouth every morning with breakfast. active Heparin Sod, Pork, Lock Flush (HEPARIN LOCK FLUSH IV) Infuse 5 mL into a venous catheter daily. Following [facility] protocol active Magnesium Glycinate 100 MG Cap Take 400 mg by mouth 2 times a day. active Magnesium Glycinate 100 MG CAPS Take 100 mg by mouth 2 (two) times a day. active minocycline 100 MG capsule Take 1 capsule (100 mg total) by mouth 2 (two) times a day. active solifenacin (VESICARE) 5 MG tablet Take 2 tablets (10 mg total) by mouth daily. active Allergies Allergen Reaction Severity Comment Documented Date Source Status ERYTHROMYCIN ANAPHYLAXIS Throat closes 07/04/2016 [facility] OTHER OTHER (SEE COMMENTS) Pt has multiple environmental allergies causing scratchy eyes.. 12/22/2009 [facility] active MACROLIDES AND KETOLIDES GI INTOLERANCE/JOANNA SEA/VOMITINGNAU SEA AND VOMITING 11/01/2009 [facility] active Problems Problem Status Onset Date Problem Type Date of Resoluti on Source Chronic infection of right knee active 2018-04-04 ProblemAct [facility] Neuropathic pain of both legs active 2019-01-08 ProblemAct [facility] Heart disease active 2023-07-14 ProblemAct [facility] Anemia active 2023-04-06 ProblemAct [facility] Causalgia of lower limb, right active 2019-07-25 ProblemAct [facility] Chronic infection of prosthetic knee, sequela active 2023-04-20 ProblemAct [facility] Chronic postoperative pain active 2019-07-25 ProblemAct [facility] 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 ProblemAct [facility] HL (hearing loss) active 2023-04-06 ProblemAct [facility] Hyperlipidemia active 2018-03-[address] Malfunction of spinal cord stimulator active 2023-12-04 ProblemAct [facility] Failed total knee arthroplasty, initial encounter active 2023-07-24 ProblemAct [facility] Left bundle branch block active 2023-04-06 ProblemAct [facility] Acute blood loss anemia active 2017-11-22 ProblemAct [facility] Chronic, continuous use of opioids active 2023-02-12 ProblemAct [facility] Encounter for long-term opiate analgesic use active 2021-01-20 ProblemAct [facility] Asthma active 2018-03-05 ProblemAct [facility] Hypogonadism male active 2023-04-06 ProblemAct [facility] Neuropathy of lower extremity active 2019-08-25 ProblemAct [facility] Diabetes mellitus active 2018-03-05 ProblemAct [facility] 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 ProblemAct [facility] Chronic pain of right knee active 2019-08-25 ProblemAct [facility] Acid reflux active 2018-03-05 ProblemAct [facility] Medication management active 2019-03-04 ProblemAct [facility] Chronic pain active 2023-07-14 ProblemAct [facility] Gastroparesis active 2023-04-06 ProblemAct [facility] Primary hypertension active 2023-04-06 ProblemAct [facility] COVID-19 active 2021-10-22 ProblemAct [facility] Acute knee pain active 2017-11-19 ProblemAct [facility] Complex regional pain syndrome type 1 of right lower extremity active 2021-07-01 ProblemAct [facility] Depressive disorder active 2016-04-26 ProblemAct [facility] Polyarthritis of lower leg active 2016-04-26 ProblemAct [facility] Pain disorder associated with psychological factors and medical condition active 2016-04-26 ProblemAct [facility] Immunizations Vaccine Date Source Lot Number Status Influenza, Quadrivalent (FLU AD) Adjuvanted Preservative Free IM 65 years and older 07/28/2023 [facility] [id number] completed Influenza Inactivated/Split Preservative Free IM 07/19/2018 CC [id number] completed Encounters Encounter Type Encounter Reason Primary Diagnosis Location Date Ambulatory [facility] 04/22/20 25 Ambulatory Infection and inflammatory reaction due to unspecified internal joint prosthesis, subsequent encounter Infection and inflammatory reaction due to unspecified internal joint prosthesis, subsequent encounter [facility] 04/22/20 25 [facility] 04/17/20 25 Ambulatory Knee Pain Knee Pain [facility] 03/13/20 25 Ambulatory [facility] 02/28/20 25 Ambulatory [facility] 02/26/20 25 Ambulatory Infection and inflammatory reaction due to unspecified internal joint prosthesis, subsequent encounter Infection and inflammatory reaction due to unspecified internal joint prosthesis, subsequent encounter [facility] 02/26/20 25 Ambulatory [facility] 01/27/20 25 Ambulatory [facility] 01/20/20 25 [facility] 12/05/19 25 [facility] 12/04/19 25 Ambulatory [facility] 11/28/19 25 [facility] 11/11/19 25 Ambulatory [facility] 10/08/20 24 Ambulatory Infection and inflammatory reaction due to unspecified internal joint prosthesis, subsequent encounter Infection and inflammatory reaction due to unspecified internal joint prosthesis, subsequent encounter [facility] 10/08/20 24 Ambulatory 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 [facility] 09/26/20 24 Ambulatory Infection and inflammatory reaction due to unspecified internal joint prosthesis, subsequent encounter Infection and inflammatory reaction due to unspecified internal joint prosthesis, subsequent encounter [facility] 09/24/20 24 [facility] 09/22/20 24 Ambulatory Myopathy, unspecified Myopathy, unspecifi [facility] 08/19/20 24 [facility] 08/07/20 24 Ambulatory Overactive bladder Overactive bladder [facility] 08/07/20 24 Ambulatory CKD STAGE 3 CKD STAGE 3 [facility] 08/05/20 24 [facility] 07/07/20 24 Ambulatory LBBB LBBB [facility] 06/20/20 24 Ambulatory 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 [facility] 06/03/20 24 Ambulatory SPLENOMEGALY R/O MYELOPROLIFERATIVE SPLENOMEGALY R/O MYELOPROLIFERATIVE [facility] 05/27/20 24 [facility] 05/21/20 24 Ambulatory [facility] 05/13/20 24 Ambulatory [facility] 03/27/20 24 Ambulatory Complex regional kane n syndrome i of right lower limb Complex regional pain syndrome i of right lower limb [facility] 03/21/20 24 Ambulatory Infection and inflammatory reaction due to unspecified internal joint prosthesis, subsequent encounter Infection and inflammatory reaction due to unspecified internal joint prosthesis, subsequent encounter [facility] 03/14/20 24 Ambulatory [facility] 02/14/20 24 Ambulatory Overactive bladder Overactive bladder [facility] 02/05/20 24 Ambulatory 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 [facility] 01/18/20 24 Ambulatory Complex regional kane n syndrome i of right lower limb Complex regional pain syndrome i of right lower limb [facility] 12/31/19 24 Ambulatory Other mechanical complication of implanted electronic neurostimulator of spinal cord electrode (lead), sequela Other mechanical complication of implanted electronic neurostimulator of spinal cord electrode (lead), sequela [facility] 12/17/19 24 Ambulatory Infection and inflammatory reaction due to unspecified internal joint prosthesis, subsequent encounter Infection and inflammatory reaction due to unspecified internal joint prosthesis, subsequent encounter [facility] 12/14/19 24 Ambulatory Other mechanical complication of implanted electronic neurostimulator of spinal cord electrode (lead), initial encounter Other mechanical complication of implanted electronic neurostimulator of spinal cord electrode (lead), initial encounter [facility] 11/16/19 24 Ambulatory Pyogenic arthritis, unspecified Pyogenic arthritis, unspecified [facility] 10/29/19 24 Ambulatory Infection and inflammatory reaction due to unspecified internal joint prosthesis, subsequent encounter Infection and inflammatory reaction due to unspecified internal joint prosthesis, subsequent encounter [facility] 10/11/20 23 Ambulatory Infection and inflammatory reaction due to unspecified internal joint prosthesis, subsequent encounter Infection and inflammatory reaction due to unspecified internal joint prosthesis, subsequent encounter [facility] 09/06/20 23 Ambulatory Pyogenic arthritis, unspecified Pyogenic arthritis, unspecified [facility] 08/27/20 23 Ambulatory Complex regional kane n syndrome i of right lower limb Complex regional pain syndrome i of right lower limb [facility] 08/23/20 23 Ambulatory Complex regional kane n syndrome i of right lower limb Complex regional pain syndrome i of right lower limb [facility] 08/22/20 23 Ambulatory Complex regional kane n syndrome i of right lower limb Complex regional pain syndrome i of right lower limb [facility] 08/21/20 23 Ambulatory Complex regional kane n syndrome i of right lower limb Complex regional pain syndrome i of right lower limb [facility] 08/20/20 23 Ambulatory Infection and inflammatory reaction due to other internal joint prosthesis, subsequent encounter Infection and inflammatory reaction due to other internal joint prosthesis, subsequent encounter [facility] 08/17/20 23 Ambulatory Abrasion, right knee , initial encounter Abrasion, right knee, initial encounter [facility] 08/16/20 23 Ambulatory [facility] 08/08/20 23 Ambulatory Infection and inflammatory reaction due to other internal joint prosthesis, subsequent encounter Infection and inflammatory reaction due to other internal joint prosthesis, subsequent encounter [facility] 08/08/20 23 Ambulatory [facility] 07/29/20 23 Inpatient Pyogenic arthritis, unspecified Pyogenic arthritis, unspecified [facility] 07/24/20 23 Ambulatory Encounter for other preprocedural examination Encounter for other preprocedural examination [facility] 07/18/20 23 Ambulatory Infection and inflammatory reaction due to other internal joint prosthesis, subsequent encounter Infection and inflammatory reaction due to other internal joint prosthesis, subsequent encounter [facility] 07/18/20 23 Ambulatory Opioid use, unspecified, uncomplicated Opioid use, unspecified, uncomplicated [facility] 06/21/20 23 Ambulatory Infection and inflammatory reaction due to other internal joint prosthesis, subsequent encounter Infection and inflammatory reaction due to other internal joint prosthesis, subsequent encounter [facility] 05/23/20 23 Ambulatory Infection and inflammatory reaction due to other internal joint prosthesis, subsequent encounter [facility] 05/02/20 23 Ambulatory Pyogenic arthrit is, unspecified [facility] 04/20/20 23 Ambulatory 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 [facility] 04/17/20 23 Ambulatory Encounter for ot her preprocedural examination [facility] 04/06/20 23 Ambulatory [facility] 02/13/20 23 Ambulatory 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 [facility] 12/18/19 23 Ambulatory 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 [facility] 09/28/20 22 Ambulatory Overactive bladder [facility] 08/17/20 22 Ambulatory 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 [facility] 08/15/20 22 Ambulatory retirement (current) use of opiate analgesic retirement (current) use of opiate analgesic [facility] 07/12/20 22 Ambulatory retirement (current) use of opiate analgesic retirement (current) use of opiate analgesic [facility] 05/10/20 22 Ambulatory 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 [facility] 03/09/20 22 Ambulatory ocean transportation intermediary (curre nt) use of opiate analgesic [facility] 12/07/19 22 Ambulatory ocean transportation intermediary (curre nt) use of opiate analgesic [facility] 11/03/19 22 Ambulatory [facility] 10/05/20 21 Ambulatory [facility] 09/05/20 21 Ambulatory [facility] 08/04/20 21 Care Team Organization Name Specialty Phone Email Start Date End Da te [facility] Primary Care 04/17/2025 [facility] Primary Care 04/06/2025 [facility] [place] CCDA 04/03/2025 [facility] [place] ADT 04/03/20 [facility] [place] CCDA 03/23/2025 03/25/2025 [facility] Primary Care 02/19/2025 [facility] Census Enumerator (ECMP) [facility] Primary Care 02/18/2025 [facility] Primary Care 01/20/2025 [facility] [place] [place] Primary Care 07/22 [facility] 08/05/2024 [facility] Primary Care 07/28/2024 [facility] Patient answer Primary Care 07/07/2024 [facility] answer,Patient Primary Care 05/23/2024 [facility] Patient answer Primary Care 05/21/2024 [facility] Primary Care 05/14/2024 [facility] provided,No Primary Care 03/27/2024 [facility] [employer] 12/25/2023 03/23/2024 [facility] 08/23/2023 [facility] [place] ADT 06/01/2004/03/2025 [facility] [place] CCDA 06/01/2023 03/21/2025 [facility] [employer] [employer] MAGGI MENDEZ Primary Care 05/02/2023 05/23/2023 [facility] 03/24/2023 [facility] provided No Primary Care 09/21/2022 [facility] Care Abdon Poole Primary Care 09/01/2022 024 [facility]. No provided Primary Care 08/28/2022 023 [facility] Abdon Poole Primary Care 08/17/2022 [facility] PPANKAJ RODRIGUES Primary Care 07/08/2021 [facility] Abdon Poole Primary Care 05/28/2018 2 [facility] [employer] Meme Primary Care 05/28/2018 08/17/2022 [facility] George Tony Primary Care 05/28/2018 2 [facility] Rosa Chatman Primary Care
--- OUTSIDE RECORDS SUMMARY | 2025-05-04 15:16 | XMS_ITS | Clinical Summary ---
Author Organization [facility] Address [address] [place] [address] Care Team Providers Care Employment Appeals Examiner Name Role Phone Abdon Poole MD Primary Care Provider [phone] Allergies Active Allergy Reactions Criticality Noted Date Comments Erythromycin 10/27/2016 Macrolides And Ketolides Anaphylaxis,[place] And Vomiting High 11/01/2009 Throat closes Medications Medication Sig Dispensed Refills Start Date End Date Status VENTOLIN HFA 108 (90 BASE) MCG/ACT inhaler INHALE 2 PUFFS 1 MINUTE APART EVERY 4 HOURS NEEDED 0 10/09/2016 Active LIPITOR 80 MG tablet Take 0.5 tablets (40 mg total) by mouth every night at bedtime. 0 10/04/2016 Active duloxetine (CYMBALTA) DR capsule 60 mg Take 1 capsule (60 mg total) by mouth 2 (two) times a day. 0 10/16/2016 Active FLOVENT HFA 44 MCG/ACT inhaler Inhale 2 puffs into the lungs as needed. 0 10/09/2016 Active NATO CONTOUR NEXT TEST test strip 0 10/10/2016 Active metFORMIN (GLUCOPHAGE) tablet 1000 mg Take 1 tablet (1,000 mg total) by mouth 2 (two) times a day with meals. 2 10/17/2016 Active polyethylene glycol (GLYCOLAX) 17 GM/SCOOP powderIndications:C onstipation, unspecified constipation type,History of colon polyps Take 17 g by mouth daily. As part of colonoscopy prep, start MiraLAX 17 g mixed in 8 ounces of water for each of the 14 days prior to colonoscopy. 255 g 5 06/10/2021 Active bisacodyl (Dulcolax) 5 MG EC tabletIndications:H istory of colon polyps Take as directed my MD office preprocedure 4 tablet 1 06/10/2021 Active DRZ-OSn-PaWw-NaSulf -Na Asc-C (PLENVU) 140 g SOLRIndications:His tory of colon polyps Take as directed by MD office. 1 each 0 06/10/2021 Active Additional Information Patient not taking.Reason: Other, Reported on 05/06/2024 famotidine (PEPCID) 20 MG tablet TAKE 1 TABLET BY MOUTH 2 TIMES A DAY NEEDED FOR HEARTBURN. 180 tablet 1 04/07/2024 Active Additional Information Patient taking differently: 20 mg Oral 2 times daily, Reason: Other, Reported on 08/18/2024 pantoprazole (PROTONIX) 20 MG tabletIndications:G astroesophageal reflux disease, unspecified whether esophagitis present,Epigastric abdominal pain TAKE 1 TABLET BY MOUTH EVERY DAY 90 tablet 1 07/14/2024 Active OXcarbazepine (TRILEPTAL) 150 MG tablet Take 2 tablets (300 mg total) by mouth 2 (two) times a day. 0 Active sacubitril-valsarta n (Entresto) 24-26 MG per tablet Take 1 tablet by mouth 2 (two) times a day. 0 Active Buprenorphine HCl (Belbuca) [address] 750 mcg inside cheek 2 (two) times a day. 0 Active minocycline 100 MG capsule Take 1 capsule (100 mg total) by mouth 2 (two) times a day. 0 Active solifenacin (VESICARE) 5 MG tablet Take 2 tablets (10 mg total) by mouth daily. 0 Active amLODIPine (NORVASC) tablet 5 mg Take 1 tablet (5 mg total) by mouth daily. 0 Active ferrous sulfate 325 (65 FE) MG tablet Take 1 tablet (325 mg total) by mouth every morning with breakfast. 0 Active Magnesium Glycinate 100 MG CAPS Take 100 mg by mouth 2 (two) times a day. 0 Active Active Problems Problem Noted Date Diagnosed Date Depressive disorder 04/26/2016 Pain disorder associated wit h psychological factors and medical condition 04/26/2016 Polyarthritis of lower leg 04/26/2016 Social History Tobacco Use Types Packs/Day Years Used Date Smoking Tobacco: Never Smokeless Tobacco: Never Alcohol Use Standard Drinks/Week Comments Yes 2 (1 standard drink = 0.6 oz pur e alcohol) social Sex and Gender Information Value Date Recorded Sex Assigned at Male 10/24/2018 2:06 PM EST Gender Identity Male 08/15/2024 12:37 PM EDT Sexual Orientation Not on file Job Start Date Occupation Industry Not on file Not on file Not on file Last Filed Vital Signs Vital Sign Reading Time Taken Comments Blood Pressure 105/57 08/19/2024 12:30 PM EDT Pulse 71 08/19/2024 12:30 PM EDT Temperature 36.8 C (98.2 F) 08/19/2024 9:04 AM EDT Respiratory Rate 15 08/19/2024 12:30 PM EDT Oxygen Saturation 95% 08/19/2024 12:30 PM EDT Inhaled Oxygen Concentration - - Weight 79 kg (174 lb 3.2 oz) 08/19/2024 9:04 AM EDT Height 170.2 cm (5' 7 ) 08/19/2024 9:04 AM EDT Body Mass Index 27.28 08/19/2024 9:04 AM EDT Plan of Treatment Health Maintenance Due Date Last Done Comments Hepatitis C Screening 1957 Pneumococcal Vaccine (1 of 2 - PCV) 1963 Depression Screening 1969 BMI Counseling 1975 Diabetes: Eye Exam (No Retinopathy) 1975 Diabetes: Foot Exam 1975 Diabetes: Microalbumin Test 1975 Hemoglobin A1C Due 1975 Preventative Health Evaluation 1975 Colon Cancer Screening (Colonoscopy) 2002 Shingrix-Zoster Vaccine (2 o f 2) 09/03/2020 07/09/2020 DTap / Tdap / Td (3 - Tdap) 08/08/202107/22, 02/13/2000 Fall Risk Assessment 2022 COVID-19 Vaccine (2 - 2023-2 5 season) 2024 10/12/2021 Influenza Vaccine (#1) 2025 3, 07/22/2015 RSV Adult > 60+ Yrs or (1 - 1-dose 75+ series) 01/24/2032 Hepatitis B Vaccines Aged Out No long er eligible based on patient's age to complete this topic RSV Ped < 20 months Aged Out No longe r eligible based on patient's age to complete this topic Advance Directives For more information, please contact: [phone] Latest Code Status on File Code Status Date Activated Date Inactivated Comments Full Code 08/19/2024 10:31 AM 08/19/2024 7:17 PM Th is code status was ascertained in the following way: prior . Code Status History Code Status Date Activated Date Inactivated Comments Full Code 08/19/2024 7:46 AM 08/19/2024 10:31 AM Th is code status was ascertained in the following way per . Care Teams Employment Appeals Examiner Relationship Specialty Start Date End Date Abdon Poole MD [address] [place] [address] PCP - [facility] [place] [facility] 08/14/22
--- OUTSIDE RECORDS SUMMARY | 2025-05-04 15:16 | XMS_ITS | Clinical Summary ---
Author Organization [facility] Address [address] [place] [address] Care Team Providers Care Loss Control Engineer Name Role Phone Abdon Poole MD Primary Care Provider [phone] Allergies Active Allergy Reactions Criticality Noted Date Comments Erythromycin 10/27/2016 Other Anaphylaxis,Nausea A nd Vomiting High 11/01/2009 Macrolides And Ketolides- Throat closes Medications amLODIPine (NORVASC) 5 mg tablet Take 1 tablet (5 mg total) by mouth 1 (one) time each day. Active glucose blood test strip 6 Active bisacodyL (Dulcolax, bisacodyl,) 5 mg EC tablet Take as directed my MD office preprocedure 1 Active buprenorphine HCL (Belbuca) [address] 750 mcg inside cheek 2 (two) times a day. Active DULoxetine (CYMBALTA) [address] capsule Take 1 capsule (60 mg total) by mouth 2 (two) times a day. 6 Active ferrous sulfate 325 mg (65 mg elemental iron) tablet Take 1 tablet (325 mg total) by mouth every morning with breakfast. Active fluticasone HFA (Flovent HFA) 44 mcg/actuation inhaler Inhale 2 puffs into the lungs as needed. 6 Active atorvastatin (Lipitor) 80 mg tablet Take 0.5 tablets (40 mg total) by mouth every night at bedtime. 6 Active magnesium glycinate 100 mg magnesium capsule Take 100 mg by mouth 2 (two) times a day. Active metFORMIN (GLUCOPHAGE) 1,000 mg tablet Take 1 tablet (1,000 mg total) by mouth 2 (two) times a day with meals. 6 Active minocycline (MINOCIN,DYNACI N) 100 mg capsule Take 1 capsule (100 mg total) by mouth 2 (two) times a day. Active OXcarbazepine (TRILEPTAL) 150 mg tablet Take 2 tablets (300 mg total) by mouth 2 (two) times a day. Active pantoprazole (PROTONIX) 20 mg EC tablet Take 1 tablet (20 mg total) by mouth 1 (one) time each day. 4 Active [id number] peb-JsCe-BIf-as b-C 140-9-5.2 gram powder in packet, sequential Take as directed by MD office. 1 Active polyethylene glycol (PEG) 17 gram/dose oral powder Take 17 g by mouth daily. As part of colonoscopy prep, start MiraLAX 17 g mixed in 8 ounces of water for each of the 14 days prior to colonoscopy. 1 Active sacubitriL-vals altaf (Entresto) 24-26 mg per tablet Take 1 tablet by mouth 2 (two) times a day. Active solifenacin (VESICARE) 5 mg tablet Take 2 tablets (10 mg total) by mouth daily. Active albuterol HFA (Ventolin HFA) 90 mcg/actuation inhaler INHALE 2 PUFFS 1 MINUTE APART EVERY 4 HOURS NEEDED 6 Active famotidine (PEPCID) 20 mg tablet TAKE 1 TABLET BY MOUTH 2 TIMES A DAY NEEDED FOR HEARTBURN. 180 tablet 1 5 Active Active Problems Problem Noted Date Diagnosed Date Depressive disorder 04/26/2016 Pain disorder associated wit h psychological factors and medical condition 04/26/2016 Polyarthritis of lower leg 04/26/2016 Surgical History Surgery Date Site/Laterality Comments UPPER GASTROINTESTINAL ENDOSCOPY PROCEDURE:UPPER GASTROINTESTINAL ENDOSCOPY COLONOSCOPY 2015 PROCEDURE:COLONOSCOPY Medical History Medical History Date Comments Colon polyp DX:Colon polyp Diabetes mellitus (CMS/HCC V24, CMS/HCC V28) DX:Diabetes mellitus (HCC) GERD (gastroesophageal reflux disease) DX:GERD (gastroesophageal reflux disease) Hyperlipidemia DX:Hyperlipidemi a Gastrointestinal parasites DX:Ga strointestinal parasites Social History Tobacco Use Types Packs/Day Years Used Date Smoking Tobacco: Never Smokeless Tobacco: Never Alcohol Use Standard Drinks/Week Comments Yes 2 (1 standard drink = 0.6 oz pur e alcohol) Sex and Gender Information Value Date Recorded Sex Assigned at Not on file Legal Sex Male 2:41 AM EST Gender Identity Not on file Sexual Orientation Not on file Obstetrics History Last Filed Vital Signs Vital Sign Reading Time Taken Comments Blood Pressure 122/60 05/06/2024 10:33 AM EDT Sitting Left arm Pulse 91 05/06/2024 10:33 AM EDT Temperature - - Respiratory Rate - - Oxygen Saturation - - Inhaled Oxygen Concentration - - Weight 79 kg (174 lb 3.2 oz) 08/19/2024 9:04 AM EDT Height 170.2 cm (5' 7 ) 08/19/2024 9:04 AM EDT Body Mass Index 27.28 08/19/2024 9:04 AM EDT Plan of Treatment Health Maintenance Due Date Last Done Comments COVID-19 Vaccine (#1) 1962 DTaP,Tdap,and Td Vaccines (1 - Tdap) 01/24/1976 Pneumococcal Vaccine: 50+ Ye ars (1 of 1 - PCV) 2007 Zoster Vaccines (1 of 2) 2007 Cholesterol Screening (Lipid Panel) 09/24/2022 Colorectal Cancer Screening: Colonoscopy 09/24/2022 Depression Screening 09/24/2022 Falls Risk Assessment 09/24/2022 Hepatitis C Screening 09/24/2022 Social Influencers of Health Screening 09/24/2022 Influenza Vaccine (#1) 2025 RSV Immunization Adult Patie nts (1 - 1-dose 75+ series) 01/24/2032 HIB Vaccines Aged Out No longer eligi ble based on patient's age to complete this topic HPV Vaccines Aged Out No longer eligi ble based on patient's age to complete this topic Hepatitis A Vaccines Aged Out No long er eligible based on patient's age to complete this topic Hepatitis B Vaccines Aged Out No long er eligible based on patient's age to complete this topic IPV Vaccines Aged Out No longer eligi ble based on patient's age to complete this topic MMR Vaccines Aged Out No longer eligi ble based on patient's age to complete this topic Meningococcal ACWY Vaccine Aged Out N o longer eligible based on patient's age to complete this topic Meningococcal B Vaccine Aged Out No l onger eligible based on patient's age to complete this topic RSV Immunization Patients Un troy 20 months Aged Out No longer eligible b ased on patient's age to complete this topic Varicella Vaccines Aged Out No longer eligible based on patient's age to complete this topic Care Teams Loss Control Engineer Relationship Specialty Start Date End Date Abdon Poole MD PCP - General Hospitalist Medicine 08/14/22
--- OUTSIDE RECORDS SUMMARY | 2025-05-04 15:16 | XMS_ITS | Clinical Summary ---
Author Organization [facility] [address] [facility] Address [address] [place] [address] Care Team Providers Care Child Care Specialist Name Role Phone George Tony MD Primary Care Provider Unavailab le Allergies Active Allergy Reactions Criticality Noted Date Comments Erythromycin 07/11/2012 Medications carBAMazepine (TEGRETOL XR) 400 MG 12 hr tablet Take 400 mg by mouth 2 (two) times daily. Active atorvastatin (LIPITOR) 20 MG tablet Take 20 mg by mouth daily. Active lansoprazole (PREVACID) 30 MG capsule Take 30 mg by mouth daily. Active DULoxetine (CYMBALTA) 60 MG capsule Take 60 mg by mouth daily. Active aspirin chewable tablet Take 81 mg by mouth daily. Active chromium picolinate 400 mcg Tab Take 800 mg by mouth 2 (two) times daily. Active glucosamine-cho ndroitin 500-400 mg tablet Take 1 tablet by mouth 3 (three) times daily. Active alpha lipoic acid 600 mg Cap Take by mouth. Active PYRIDOXINE HCL (VITAMIN B-6 ORAL) Take 20 mg by mouth 2 (two) times daily. Active saw palmetto 320 mg Cap Take 1 capsule by mouth daily. Active fish oil-omega-3 fatty acids 1,000 mg capsule Take 2 g by mouth 2 (two) times daily. Active magnesium oxide (MAG-OX) 400 mg tablet Take 400 mg by mouth 2 (two) times daily. Active lysine 500 mg Cap Take 500 mg by mouth daily. Active co-enzyme Q-10 (CO Q-10) 100 mg capsule Take 100 mg by mouth daily. Active TARIK ROOT, BULK, MISC Take 1,100 mg by mouth daily. Active diclofenac (VOLTAREN) 75 MG EC tablet Take 75 mg by mouth 2 (two) times daily. Active Active Problems Problem Noted Date Diagnosed Date Cervicalgia 11/28/2012 Pain in limb 11/28/2012 Cervical stenosis of spine 09/24/2012 Numbness and tingling 07/22/2012 Asthma 07/11/2012 Diabetes mellitus (HC Code) 07/11/2012 High cholesterol 07/11/2012 Family History Medical History Relation Name Comments Diabetes Brother Heart disease Brother Diabetes Mother Heart disease Sister Relation Name Status Comments Brother Mother Sister Social History Tobacco Use Types Packs/Day Years Used Date Smoking Tobacco: Never Smokeless Tobacco: Never Alcohol Use Standard Drinks/Week Comments Yes 0.8 (1 standard drink = 0.6 oz p ure alcohol) Sex and Gender Information Value Date Recorded Sex Assigned at Not on file Legal Sex Male 7:49 AM EST Gender Identity Not on file Sexual Orientation Not on file 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 Not on file Not on file Last Filed Vital Signs Vital Sign Reading Time Taken Comments Blood Pressure 116/81 05/01/2013 11:28 AM EDT Pulse 73 05/01/2013 11:28 AM EDT Temperature 36.5 C (97.7 F) 09/24/2012 9:33 AM EST Respiratory Rate - - Oxygen Saturation 95% 09/24/2012 9:33 AM EST Inhaled Oxygen Concentration - - Weight 88.5 kg (195 lb) 05/01/2013 11:28 AM EDT Height 172.7 cm (5' 8 ) 05/01/2013 11:28 AM EDT Body Mass Index 29.65 05/01/2013 11:28 AM EDT Plan of Treatment Health Maintenance Due Date Last Done Comments HIV screening 1970 Hepatitis C screening 1975 Tetanus adult (Td q 10,TDAP once) 1977 Lipid disorder screening 1997 Colon cancer screening, Colonoscopy 2002 Pneumococcal Vaccine (50+ ye ars) (1 of 1 - PCV) 2007 Shingles vaccine (Shingrix) (1 of 2 - Shingrix (RZV) 2 Dose Standard Series) 2007 Diabetes screening 11/06/2015 11/06/2012 Covid-19 vaccine series (2023-25 season) 2024 Influenza vaccine 06/22/2025 RSV Immunization (1 - 1-dose 75+ series) 01/24/2032 Meningococcal Vaccine Aged Out No marco antonio reynaldo eligible based on patient's age to complete this topic Procedures Procedure Name Priority Date/Time Associated Diagnosis Comments GLUCOSE ([facility] LMW Q YH) Routine 11/06/2012 3:53 PM EST from Last 3 Months or Most Recently Relevant to Health Maintenance Results * Glucose ( GH Q YH) (11/06/2012 3:53 PM EST) Glucose 75 70 - 100 mg/dL [facility] 11/06/2012 3:53 PM EST Narrative [facility] - 11/06/2012 4:47 PM EST Collection time required-include time drawn on label us Rohini Elizondo MD LAB BLOOD ORDERABLES Final Res ult [facility] [address] [place] [address] from Last 3 Months or Most Recently Relevant to Health Maintenance Insurance [facility] MEDICARE [facility] MEDICARE [facility] MEDICARE [facility] MEDICARE Care Teams Child Care Specialist Relationship Specialty Start Date End Date George Tony MD PCP - General Family Medicine 09/24/12
--- OUTSIDE RECORDS SUMMARY | 2025-05-04 15:16 | XMS_ITS | Encounter Summary ---
Author Organization [facility] Address [address] [place] [address] Care Team Providers Care Tire Cord Weaver Name Role Phone Abdon Poole MD Primary Care Provider Won Mello MD Unavailable Flash Viera MD Unavailable [phone] Encounter Details Date Type Department Care Team (Late st Contact Info) Description 04/07/2024 Telephone [facility] Urologic Surgery [address] [place] [address] Jose Carlos Oconnor MD [address] [place] [address] Social History Tobacco Use Types Packs/Day Years Used Date Smoking Tobacco: Never Smokeless Tobacco: Never Alcohol Use Standard Drinks/Week Comments Yes 0 (1 standard drink = 0.6 oz pure alcohol) 3x a month at most, will refrain 2 weeks before surgery OASIS D0700: Social Isolation Answer Da te Recorded Frequency of experiencing loneliness or isolatio n Never 09/10/2023 OASIS A1250: Transportation Answer Date Recorded Lack of Transportation (Medical) No 09/10/2023 Lack of Transportation (Non-Medical) No 09/10/2023 Patient Unable or Declines to Respond No 09/10/2023 AUDIT-C Answer Date Recorded Q1: How often do you have a drink containing alc ohol? 2-4 times a month 12/11/2023 Q2: How many drinks containi ng alcohol do you have on a typical day when you are drinking? 1 or 2 12/11/2023 Q3: How often do you have si x or more drinks on one occasion? Never 12/11/2023 Sex and Gender Information Value Date Recorded Sex Assigned at Male 04/20/2023 5:51 AM EDT Legal Sex Male 2:51 AM EDT Gender Identity Male 04/20/2023 5:51 AM EDT Sexual Orientation Heterosexual (straight) 04/20 5:51 AM EDT documented as of this encounter Miscellaneous Notes * Telephone Encounter - Sera Piper - 04/07/2024 3:30 PM EDT Patient calling regarding his medication Tripple P but then stated to disregard as he has found the information need and would call back if needed Thank You documented in this encounter Plan of Treatment Upcoming Encounters Date Type Department Care Team (Late st Contact Info) Description 05/21/2025 11:00 AM EDT Office Visit [facility] [id number] [address] [phone] Jasmin Escobar, PASantoC [address] [phone] 01/19/2026 11:00 AM EDT Office Visit [facility] [id number] [address] [phone] Nora Gentile APRN [address] [phone] 02/24/2026 11:00 AM EDT [facility] [address] [place] [phone] Flash Viera MD [address] [place] [address] documented as of this encounter Visit Diagnoses Not on filedocumented in this encounter Care Teams Tire Cord Weaver Relationship Specialty Start Date End Date Abdon Poole MD [address] [place] [address] PCP - General Internal Medicine 08/17/22 Won Mello MD [address] [place] [address] Cardiovascular Disease 04/02/23 Flash Viera MD [address] [place] [address] Surgery, Orthopedic 04/03/23 documented as of this encounter
== END 2025-05-04 13:58 | disposition home or self-care (01) ==
LOC: HO.BBR 13:57
PROVIDERS: Visit Provider Family Medicine
DX: D75.1 Secondary polycythemia (principal)
CPT/HCPCS: 85018; 99195

== ENCOUNTER 2025-08-04 10:11 | Outpatient (REF) | payer MEDICARE, SELFPAY ==
--- OUTSIDE RECORDS SUMMARY | 2025-08-04 11:49 | XMS_ITS | Encounter Summary ---
Author Organization [facility] Address [address] [place] [address] Care Team Providers Care Wool Mixer Name Role Phone George Tony MD Primary Care Provider [phone] Radha Reyes MD Primary Care Provider [phone] Luiz Valentine MD Primary Care Provider [phone] Abdon Poole MD Primary Care Provider [phone] Won Mello MD Unavailable [phone] Flash Viera MD Unavailable [phone] Encounter Details Date Type Department Care Team (Late st Contact Info) Description 02/15/2018 Scanned Document [facility] [address] [place] [address] [address] [place] [phone] Provider, External, [address] [place] [address] Social History Tobacco Use Types Packs/Day Years Used Date Smoking Tobacco: Never Smokeless Tobacco: Never Alcohol Use Standard Drinks/Week Comments Yes 1 (1 standard drink = 0.6 oz pur e alcohol) Sex and Gender Information Value Date Recorded Sex Assigned at Male 04/20/2023 5:51 AM EDT Legal Sex Male 2:51 AM EDT Gender Identity Male 04/20/2023 5:51 AM EDT Sexual Orientation Heterosexual (straight) 04/20 5:51 AM EDT documented as of this encounter Plan of Treatment Upcoming Encounters Date Type Department Care Team (Late st Contact Info) Description 08/05/2025 11:20 AM EDT Office Visit [id number] [address] [phone] Jasmin Escobar PA-C [address] [phone] 01/19/2026 11:00 AM EDT Office Visit [facility] [address] [phone] Nora Gentile APRN [address] [phone] 02/24/2026 11:00 AM EDT [facility] Visit [facility] [address] [place] [phone] Flash Viera MD 499 [facility] 300 [place] [address] documented as of this encounter Visit Diagnoses Not on filedocumented in this encounter Care Teams Wool Mixer Relationship Specialty Start Date End Date George Tony MD [address] [place] [address] PCP - General Internal Medicine 07/04/16 10/08/19 Radha Reeys MD [address] [place] [address] PCP - General Internal Medicine 10/09/19 11/30/20 Luiz Valentine MD 2400 [facility] 202 [place] [address] PCP - General Internal Medicine 12/01/20 08/16/22 Abdon Poole MD [address] [place] [address] PCP - General Internal Medicine 08/17/22 Won Mello MD [address] [place] [address] Cardiovascular Disease 04/02/23 Flash Viera MD [address] [place] [address] Surgery, Orthopedic 04/03/23 documented as of this encounter
--- OUTSIDE RECORDS SUMMARY | 2025-08-04 11:49 | XMS_ITS | Encounter Summary ---
Author Organization [facility] Address [address] [place] [address] Care Team Providers Care Facs Teacher Name Role Phone Abdon Poole MD Primary Care Provider Won Mello MD Unavailable [phone] Flash Viera MD Unavailable [phone] Encounter Details Date Type Department Care Team (Late st Contact Info) Description 07/20/2023 Scanned Document [facility] [address] [place] [phone] Flash Viera MD [address] [place] [address] [address] [place] [address] Social History Tobacco Use Types Packs/Day Years Used Date Smoking Tobacco: Never Smokeless Tobacco: Never Alcohol Use Standard Drinks/Week Comments Yes 0 (1 standard drink = 0.6 oz pure alcohol) 3x a month at most, will refrain 2 weeks before surgery AUDIT-C Answer Date Recorded Q1: How often do you have a drink containing alc ohol? Monthly or less 07/24/2023 Q2: How many drinks containi ng alcohol do you have on a typical day when you are drinking? 1 or 2 07/24/2023 Q3: How often do you have si x or more drinks on one occasion? Never 07/24/2023 Sex and Gender Information Value Date Recorded [...] Office Visit [id number] [address] [phone] Jasmin Escobar, PASantoC [address] [phone] 01/19/2026 11:00 AM EDT Office Visit [facility] [address] [phone] Nora Gentile APRN [address] [phone] 02/24/2026 11:00 AM EDT [facility] Visit [facility] [address] [place] [phone] Flash Viera MD 499 [facility] [address] [place] [address] documented as of this encounter Visit Diagnoses Not on filedocumented in this encounter Care Teams Facs Teacher Relationship Specialty Start Date End Date Abdon Poole MD [address] [place] [address] PCP - General Internal Medicine 08/17/22 Won Mello MD 18 [place] [address] Cardiovascular Disease 04/02/23 Flash Viera MD [address] [place] [address] [address] [place] [address] Surgery, Orthopedic 04/03/23 documented as of this encounter
--- OUTSIDE RECORDS SUMMARY | 2025-08-04 11:49 | XMS_ITS | Encounter Summary ---
Author Organization [facility] Address [address] [place] [address] Care Team Providers Care Labor/Excavator Name Role Phone Abdon Poole MD Primary Care Provider Won Mello MD Unavailable [phone] Flash Viera MD Unavailable [phone] Reason for Visit * Reason Comments Med Change Request Encounter Details Date Type Department Care Team (Late st Contact Info) Description 08/24/2022 [facility] Urologic Surgery [address] [place] [phone] Jose Carlos Oconnor MD [address] [place] [id number] Erectile dysfunction due to diseases classified elsewhere Social History Tobacco Use Types Packs/Day Years Used Date Smoking Tobacco: Never Smokeless Tobacco: Never Alcohol Use Standard Drinks/Week Comments Yes 0 (1 standard drink = 0.6 oz pur e alcohol) 3x a week at most Sex and Gender Information Value Date Recorded Sex Assigned at Male 04/20/2023 5:51 AM EDT Legal Sex Male 2:51 AM EDT Gender Identity Male 04/20/2023 5:51 AM EDT Sexual Orientation Heterosexual (straight) 04/20 5:51 AM EDT COVID-19 Exposure Response Date Recorded In the last 10 days, have yo u been in contact with someone who was confirmed or suspected to have Coronavirus/COVID-19? No / Unsure 08/15/2022 10:20 AM EDT documented as of this encounter Miscellaneous Notes * Telephone Encounter - Jose Carlos Oconnor MD - 08/24/2022 2:28 PM EDT Prescription should be sent to either [facility] or [facility] using [facility]. Please check with patient regarding his preference and reroute prescription. documented in this encounter Plan of Treatment Upcoming Encounters Date Type Department Care Team (Late st Contact Info) Description 08/05/2025 11:20 AM EDT Office Visit [id number] [address] [phone] Jasmin Escobar, PASantoC [address] [phone] 01/19/2026 11:00 AM EDT Office Visit [facility] [address] [phone] Nora Gentile APRN [address] [phone] 02/24/2026 11:00 AM EDT Office Visit [facility] [address] [place] [phone] Flash Viera MD 499 [facility] [address] [place] [address] documented as of this encounter Visit Diagnoses Diagnosis Erectile dysfunction due to diseases classified elsewhere documented in this encounter Care Teams Labor/Excavator Relationship Specialty Start Date End Date Abdon Poole MD [facility] [address] [address] PCP - General Internal Medicine 08/17/22 Won Mello MD [address] [place] [address] Cardiovascular Disease 04/02/23 Flash Viera MD [address] [place] [address] Surgery, Orthopedic 04/03/23 documented as of this encounter
--- OUTSIDE RECORDS SUMMARY | 2025-08-04 11:49 | XMS_ITS | Encounter Summary ---
Author Organization [facility] Address [address] [place] [address] Care Team Providers Care Watch Hairspring Assembler Name Role Phone George Tony MD Primary Care Provider [phone] Radha Reyes MD Primary Care Provider [phone] Luiz Valentine MD Primary Care Provider [phone] Abdon Poole MD Primary Care Provider [phone] Won Mello MD Unavailable [phone] Flash Viera MD Unavailable [phone] Encounter Details Date Type Department Care Team (Latest Contact Info) Description 07/25/2019 Prep for Surgery [facility] [address] [place] [address] [address] [place] [phone] Flash Lake MD Causalgia of lower limb, right (Primary Dx); Chronic postoperative pain Social History Tobacco Use Types Packs/Day Years [...] Office Visit [id number] [address] [phone] Jasmin Escobar PA-C [address] [phone] 01/19/2026 11:00 AM EDT Office Visit [facility] [address] [phone] Nora Gentile APRN [address] [phone] 02/24/2026 11:00 AM EDT [facility] Visit [facility] [address] [place] [phone] Flash Viera MD 499 [facility] [address] [place] [address] documented as of this encounter Visit Diagnoses Diagnosis Causalgia of lower limb, right- Primary Chronic postoperative pain Other chronic postoperative pain documented in this encounter Care Teams Watch Hairspring Assembler Relationship Specialty Start Date End Date George Tony MD 315 [place] [address] PCP - General Internal Medicine 07/04/16 10/08/19 Radha Reyes MD [address] [place] [address] PCP - General Internal Medicine 10/09/19 11/30/20 Luiz Valentine MD 2400 [facility] 202 [place] [address] PCP - General Internal Medicine 12/01/20 08/16/22 Abdon Poole MD [address] [place] [address] PCP - General Internal Medicine 08/17/22 Won Mello MD [address] [place] [address] Cardiovascular Disease 04/02/23 Flash Viera MD [address] [place] [address] Surgery, Orthopedic 04/03/23 documented as of this encounter
--- OUTSIDE RECORDS SUMMARY | 2025-08-04 11:49 | XMS_ITS | Encounter Summary ---
Author Organization [facility] Address [address] [place] [address] Care Team Providers Care Assistant Professor Of German Name Role Phone George Tony MD Primary Care Provider [phone] Radha Reyes MD Primary Care Provider [phone] Luiz Valentine MD Primary Care Provider [phone] Abdon Poole MD Primary Care Provider [phone] Won Mello MD Unavailable [phone] Flash Viera MD Unavailable [phone] Reason for Visit * Reason Onset Date Comments Medication Refill 02/11/2018 Encounter Details Date Type Department Care Team (Late st Contact Info) Description 02/11/2018 Refill [facility] [address] [place] [phone] Flash Lake MD Social History Tobacco Use Types Packs/Day Years [...] Office Visit [facility] [id number] [address] [phone] Jasmin Escobar PA-C [address] [phone] 01/19/2026 11:00 AM EDT Office Visit [facility] ENFLD7 [address] [phone] Nora Gentile APRN [address] [phone] 02/24/2026 11:00 AM EDT [facility] Visit [facility] [address] [place] [phone] Flash Viera MD 499 [facility] [address] [place] [phone] documented as of this encounter Visit Diagnoses Not on filedocumented in this encounter Care Teams Assistant Professor Of German Relationship Specialty Start Date End Date George Tony MD [address] [place] [address] PCP - General Internal Medicine 07/04/16 10/08/19 Radha Reyes MD 315 [place] [address] PCP - General Internal Medicine 10/09/19 11/30/20 Luiz Valentine MD 2400 [facility] 202 [place] [address] PCP - General Internal Medicine 12/01/20 08/16/22 Abdon Poole MD [address] [place] [address] PCP - General Internal Medicine 08/17/22 Won Mello MD [address] [place] [address] Cardiovascular Disease 04/02/23 Flash Viera MD [address] [place] [address] Surgery, Orthopedic 04/03/23 documented as of this encounter
--- OUTSIDE RECORDS SUMMARY | 2025-08-04 11:49 | XMS_ITS | Encounter Summary ---
Author Organization [facility] Address [address] [place] [address] Care Team Providers Care Video Presentation Operator Name Role Phone Abdon Poole MD Primary Care Provider Won Mello MD Unavailable [phone] Flash Viera MD Unavailable [phone] Encounter Details Date Type Department Care Team (Late st Contact Info) Description 07/12/2023 Scanned Document [facility] 74 [place] [phone] Flash Viera MD 499 [facility] [address] [place] [address] Social History Tobacco Use Types Packs/Day Years Used Date Smoking Tobacco: Never Smokeless Tobacco: Never Alcohol Use Standard Drinks/Week Comments Yes 0 (1 standard drink = 0.6 oz pur e alcohol) 3x a month at most AUDIT-C Answer Date Recorded Q1: How often do you have a drink containing alc ohol? Monthly or less 04/03/2023 Q2: How many drinks containi ng alcohol do you have on a typical day when you are drinking? 1 or 2 04/03/2023 Q3: How often do you have si x or more drinks on one occasion? Never 04/03/2023 Sex and Gender Information Value Date Recorded [...] Visit [facility] [id number] [address] [phone] Jasmin Escobar PA-C [address] [address] 01/19/2026 11:00 AM EDT Office Visit [facility] EN[facility] [address] [phone] Nora Gentile APRN [address] [phone] 02/24/2026 11:00 AM EDT Office Visit [facility] 499 [place] [phone] Flash Viera MD 499 [facility] 300 [place] [address] documented as of this encounter Visit Diagnoses Not on filedocumented in this encounter Care Teams Video Presentation Operator Relationship Specialty Start Date End Date Abdon Poole MD [address] [place] [address] PCP - General Internal Medicine 08/17/22 Won Mello MD 18 [place] [address] Cardiovascular Disease 04/02/23 Flash Viera MD [address] [place] [address] 100 [place] [address] Surgery, Orthopedic 04/03/23 documented as of this encounter
--- OUTSIDE RECORDS SUMMARY | 2025-08-04 11:49 | XMS_ITS | Encounter Summary ---
Author Organization [facility] Address [address] [place] [address] Care Team Providers Care Greenhouse Staff Name Role Phone George Tony MD Primary Care Provider [phone] Radha Reyes MD Primary Care Provider [phone] Luiz Valentine MD Primary Care Provider [phone] Abdon Poole MD Primary Care Provider [phone] Won Mello MD Unavailable [phone] Flash Viera MD Unavailable [phone] Encounter Details Date Type Department Care Team (Late st Contact Info) Description 08/22/2019 Prep for Surgery [facility] [address] [place] [address] [address] [place] [phone] Flash Lake MD Transverse myelitis (HCC) (Primary Dx); Neuropathy of lower extremity, unspecified laterality; Chronic pain of right knee Social History Tobacco Use Types Packs/Day Years [...] Office Visit [facility] [id number] [address] [phone] Jasmin Escobar PAEsther [address] [phone] 01/19/2026 11:00 AM EDT Office Visit [facility] EN[facility] [address] [phone] Nora Gentile APRN [address] [phone] 02/24/2026 11:00 AM EDT Office Visit [facility] 499 [place] [phone] Flash Viera MD 499 [facility] 300 [place] [address] documented as of this encounter Visit Diagnoses Diagnosis Transverse myelitis (HCC)- Primary Other causes of myelitis Neuropathy of lower extremity, unspecified laterality Chronic pain of right knee documented in this encounter Care Teams Greenhouse Staff Relationship Specialty Start Date End Date George Tony MD [address] [place] [address] PCP - General Internal Medicine 07/04/16 10/08/19 Radha Reyes MD 315 [place] [address] PCP - General Internal Medicine 10/09/19 11/30/20 Luiz Valentine MD 2400 [facility] 202 [place] [address] PCP - General Internal Medicine 12/01/20 08/16/22 Abdon Poole MD [address] [place] [address] PCP - General Internal Medicine 08/17/22 Won Mello MD [address] [place] [address] Cardiovascular Disease 04/02/23 Flash Viera MD [address] [place] [address] Surgery, Orthopedic 04/03/23 documented as of this encounter
--- OUTSIDE RECORDS SUMMARY | 2025-08-04 11:49 | XMS_ITS | Encounter Summary ---
Author Organization [facility] Address [address] [place] [address] Care Team Providers Care Music Therapy Specialist Name Role Phone Luiz Valentine MD Primary Care Provider [phone] Abdon Poole MD Primary Care Provider [phone] Won Mello MD Unavailable [phone] Flash Viera MD Unavailable [phone] Encounter Details Date Type Department Care Team (Late st Contact Info) Description 07/08/2021 Prep for Surgery [facility] [address] [place] [address] [place] [phone] Flash Lake MD Complex regional pain syndrome type 1 of right lower extremity (Primary Dx) Social History Tobacco Use Types Packs/Day Years [...] Exposure Response Date Recorded In the last month, have you been in contact with someone who was confirmed or suspected to have Coronavirus / COVID-19? No / Unsure 07/01/2021 10:42 AM EDT documented as of this encounter Plan of Treatment Upcoming Encounters Date Type Department Care Team (Late st Contact Info) Description 08/05/2025 11:20 AM EDT Office Visit [facility] [id number] [address] [phone] Jasmin Escobar, PASantoC [address] [phone] 01/19/2026 11:00 AM EDT Office Visit [facility] ENFLD[facility] [address] [phone] Nora Gentile APRN [address] [phone] 02/24/2026 11:00 AM EDT Office Visit [facility] 499 [place] [phone] Flash Viera MD 499 [facility] 300 [place] [address] documented as of this encounter Visit Diagnoses Diagnosis Complex regional pain syndrome type 1 of right lower extremity- Primary documented in this encounter Care Teams Music Therapy Specialist Relationship Specialty Start Date End Date Luiz Valentine MD [address] [place] [address] PCP - General Internal Medicine 12/01/20 08/16/22 Abdon Poole MD [address] [place] [address] PCP - General Internal Medicine 08/17/22 Won Mello MD [address] [place] [address] Cardiovascular Disease 04/02/23 Flash Viera MD [address] [place] [address] Surgery, Orthopedic 04/03/23 documented as of this encounter
--- OUTSIDE RECORDS SUMMARY | 2025-08-04 11:49 | XMS_ITS | Encounter Summary ---
Author Organization [facility] Address [address] [place] [address] Care Team Providers Care Biomedical Engineering Technologist Name Role Phone Abdon Poole MD Primary Care Provider Won Mello MD Unavailable [phone] Flash Viera MD Unavailable [phone] Encounter Details Date Type Department Care Team (Late st Contact Info) Description 11/07/2022 Refill [facility] [address] [phone] Jessie Jurado, RN 80 [place], [place] [phone] Transverse myelitis (HCC) Social History Tobacco Use Types Packs/Day Years [...] Office Visit [facility] [id number] [address] [phone] Jasmin Escobar, PAEsther [address] [phone] 01/19/2026 11:00 AM EDT Office Visit [facility] ENFLD[facility] [address] [phone] Nora Gentile, TURBINE SUBASSEMBLER [address] [phone] 02/24/2026 11:00 AM EDT Office Visit [facility] 499 [place] [phone] Flash Viera MD [address] [place] [address] [id number] documented as of this encounter Visit Diagnoses Diagnosis Transverse myelitis (HCC) Other causes of myelitis documented in this encounter Care Teams Biomedical Engineering Technologist Relationship Specialty Start Date End Date Abdon Poole MD [address] [place] [address] PCP - General Internal Medicine 08/17/22 Won Mello MD 18 [place] [address] Cardiovascular Disease 04/02/23 Flash Viera MD [address] [address] Surgery, Orthopedic 04/03/23 documented as of this encounter
--- OUTSIDE RECORDS SUMMARY | 2025-08-04 11:49 | XMS_ITS | Encounter Summary ---
Author Organization [facility] Address [address] [place] [address] Care Team Providers Care Athletic Trainer Name Role Phone Abdon Poole MD Primary Care Provider Won Mello MD Unavailable Flash Viera MD Unavailable [phone] Encounter Details Date Type Department Care Team (Late st Contact Info) Description 04/07/2024 Telephone [facility] Urologic Surgery [address] [place] [address] Jose Carlos Oconnor MD [address] [place] [address] Social History Tobacco Use Types Packs/Day Years [...] Office Visit [facility] PA[facility] MGMT [id number] [address] [phone] Jasmin Escobar, PASantoC [address] [phone] 01/19/2026 11:00 AM EDT Office Visit [facility] EN[facility] [address] [phone] Nora Gentile APRN [address] [phone] 02/24/2026 11:00 AM EDT Office Visit [facility] 499 [place] [phone] Flash Viera MD [address] [place] [address] documented as of this encounter Visit Diagnoses Not on filedocumented in this encounter Care Teams Athletic Trainer Relationship Specialty Start Date End Date Abdon Poole MD [address] [place] [address] PCP - General Internal Medicine 08/17/22 Won Mello MD [address] [place] [address] Cardiovascular Disease 04/02/23 Flash Viera MD [address] [place] [address] Surgery, Orthopedic 04/03/23 documented as of this encounter
--- OUTSIDE RECORDS SUMMARY | 2025-08-04 11:49 | XMS_ITS | Encounter Summary ---
Author Organization [facility] Address [address] [place] [address] Care Team Providers Care Psychiatry Teacher Name Role Phone Luiz Valentine MD Primary Care Provider [phone] Abdon Poole MD Primary Care Provider [phone] Won Mello MD Unavailable [phone] Flash Viera MD Unavailable [phone] Reason for Visit * Reason Comments Medication Refill Encounter Details Date Type Department Care Team (Late st Contact Info) Description 08/08/2022 Refill [facility] Urologic Surgery [address] [phone] Jose Carlos Oconnor MD [address] [place] [address] [phone] Overactive bladder Social History Tobacco Use Types Packs/Day Years [...] suspected to have Coronavirus/COVID-19? No / Unsure 07/12/2022 10:21 AM EDT documented as of this encounter Miscellaneous Notes * Telephone Encounter - Jose Carlos Oconnor MD - 08/08/2022 10:37 AM EDT Patient is long overdue for follow-up and needs appointment for any refills documented in this encounter Plan of Treatment Upcoming Encounters Date Type Department Care Team (Late st Contact Info) Description 08/05/2025 11:20 AM EDT Office Visit [facility] [id number] [address] [phone] Jasmin Escobar, PA-C [address] [phone] 01/19/2026 11:00 AM EDT Office Visit [facility] ENFLD[facility] [address] [phone] Nora Gentile APRN [address] [phone] 02/24/2026 11:00 AM EDT [facility] Visit [facility] 499 [place] [address] Flash Viera MD 499 [facility] [address] [place] [address] documented as of this encounter Visit Diagnoses Diagnosis Overactive bladder Hypertonicity of bladder documented in this encounter Care Teams Psychiatry Teacher Relationship Specialty Start Date End Date Luiz Valentine MD 2400 [facility] 202 [place] [address] PCP - General Internal Medicine 12/01/20 08/16/22 Abdon Poole MD [address] [place] [address] PCP - General Internal Medicine 08/17/22 Won eMllo MD [address] [place] [address] Cardiovascular Disease 04/02/23 Flash Viera MD [address] [place] [address] Surgery, Orthopedic 04/03/23 documented as of this encounter
--- OUTSIDE RECORDS SUMMARY | 2025-08-04 11:49 | XMS_ITS | Encounter Summary ---
Author Organization [facility] Address [address] [place] [address] Care Team Providers Care Road Freight Conductor Name Role Phone Abdon Poole MD Primary Care Provider [phone] Won Mello MD Unavailable [phone] Flash Viera MD Unavailable [phone] Encounter Details Date Type Department Care Team (Late st Contact Info) Description 02/25/2025 Scanned Document [facility] 499 [place] [phone] Flash Viera MD [address] [place] [address] [address] [place] [phone] Social History Tobacco Use Types Packs/Day Years [...] Office Visit [facility] PA[facility] MGMT [id number] [address] [phone] Jasmin Escobar, PASantoC [address] [phone] 01/19/2026 11:00 AM EDT Office Visit [facility] ENFLD[facility] [address] [phone] Nora Gentile APRN [address] [phone] 02/24/2026 11:00 AM EDT Office Visit [facility] [address] [place] [address] Flash Viera MD [address] [facility] [address] [place] [address] documented as of this encounter Visit Diagnoses Not on filedocumented in this encounter Care Teams Road Freight Conductor Relationship Specialty Start Date End Date Abdon Poole MD [facility] [address] [address] PCP - General Internal Medicine 08/17/22 Won Mello MD 18 [place] [address] Cardiovascular Disease 04/02/23 Flash Viera MD [address] [place] [address] Surgery, Orthopedic 04/03/23 documented as of this encounter
--- OUTSIDE RECORDS SUMMARY | 2025-08-04 11:50 | XMS_ITS | Encounter Summary ---
Author Organization [facility] Address [address] [place] [address] Care Team Providers Care Human Service Specialist Name Role Phone George Tony MD Primary Care Provider Unavailab le Encounter Details Date Type Department Care Team (Late st Contact Info) Description 06/10/2021 Scanned Document [facility] Health Information Management [address] [place] [address] External, Provider Social History Tobacco Use Types Packs/Day Years [...] file Not on file Not on file documented as of this encounter Plan of Treatment Not on file documented as of this encounter Visit Diagnoses Not on filedocumented in this encounter Care Teams Human Service Specialist Relationship Specialty Start Date End Date George Tony MD PCP - General Family Medicine 09/24/12 documented as of this encounter
--- OUTSIDE RECORDS SUMMARY | 2025-08-04 11:50 | XMS_ITS | Encounter Summary ---
Author Organization [facility] Address [address] [place] [address] Care Team Providers Care Grade Teacher Name Role Phone George Tony MD Primary Care Provider [phone] Radha Reyes MD Primary Care Provider [phone] Luiz Valentine MD Primary Care Provider [phone] Abdon Poole MD Primary Care Provider [phone] Won Mello MD Unavailable [phone] Flash Viera MD Unavailable [phone] Reason for Visit * Reason Comments Medication Refill Encounter Details Date Type Department Care Team (Late st Contact Info) Description 06/26/2019 Refill [facility] [address] [place] [address] Flash Lake MD Acute pain of right knee Social History Tobacco [...] Visit [facility] [id number] [address] [phone] Jasmin Escobar PA-C [address] [phone] 01/19/2026 11:00 AM EDT Office Visit [facility] EN[facility] [address] [phone] Nora Gentile APRN [address] [phone] 02/24/2026 11:00 AM EDT Office Visit [facility] 499 [place] [phone] Flash Viera MD [address] [place] [address] 300 [place] [address] documented as of this encounter Visit Diagnoses Diagnosis Acute pain of right knee documented in this encounter Care Teams Grade Teacher Relationship Specialty Start Date End Date George Tony MD [address] [place] [address] PCP - General Internal Medicine 07/04/16 10/08/19 Radha Reyes MD 315 [place] [address] PCP - General Internal Medicine 10/09/19 11/30/20 Luiz Valentine MD 2400 [facility] 202 [place] [address] PCP - General Internal Medicine 12/01/20 08/16/22 Abdon Poole MD [address] [place] [address] PCP - General Internal Medicine 08/17/22 Won Mello MD [address] [place] [address] Cardiovascular Disease 04/02/23 Flash Viera MD [address] [place] [address] Surgery, Orthopedic 04/03/23 documented as of this encounter
--- OUTSIDE RECORDS SUMMARY | 2025-08-04 11:50 | XMS_ITS | Patient Health Record ---
Author Organization [facility] Address [address] [facility] [address] [address] Care Team Providers Care Duct Installer Name Role Phone Abdon Poole Primary Care Provider Unavailabl e Marcello Patel Unavailable [phone] Alcocer, Tosha Unavailable [phone] Allergies Allergen (clinical drug ingredient) Drug/Non Drug Allergy documented on EMR Reaction Allergy Type Onset Date Status erythromycin Erythromycin Unknown Drug Allergy A ctive Macrolides and Ketolides Unknown Drug Allergy Active Reason For Referral Reason YURI Referring Provider First Name Abdon Referring Provider Last Name Zulema Referred Organization [facility] Referred Provider Marcello Patel Referred Address [address] [facility],[place], [place],[address], Referred Provider Specialty Pulmonology General Notes Nicci Ruelas 2023 12:25:31 PM >Left voicemailSuraj Alisha 10/20/2024 09:53:01 AM >Appt scheduled for Nov 06 2:45pm. Referral Priority Routine Reason Referral for inspire , severe sleep apnea, mixed, didn't tolerate CPAP Diagnosis 1 Mixed sleep apnea (G 47.39) Referral Organization [facility] Referring Provider First Name Marcello Referring Provider Last Name Amanda Referring Provider Speciality Pulmonolog y Referred Provider Rudy Connell Referred Provider Specialty Otolaryngolo gy Referral Priority Routine Medications Medication SIG (Take, Route, Frequency, Duration) Notes Start Date End Date Status Belbuca 750 MCG Film 1 film Buccal every 12 hrs; Duration: 30 days Active OXcarbazepine 150 MG Tablet 1 tablet Orally Twice a day; Duration: 30 day(s) 07/06/2025 Active carBAMazepine 200 MG Tablet Oral; Duration: 90 Days Not-Taking Mag Glycinate 100 MG Tablet 600 mg Orally twice daily Active Minocycline HCl 100 MG Capsule TAKE 1 CAPSULE BY MOUTH TWICE A DAY Oral; Duration: 45 Days Active Famotidine 20 MG Tablet TAKE 1 TABLET BY MOUTH 2 TIMES A DAY NEEDED FOR HEARTBURN. Oral; Duration: 90 Days Active BD Disp Needle 23G X 1 Miscellaneous USE DIRECTED TO INJECT WEEKLY IM; Duration: 90 Days Active amLODIPine Besylate 5 MG Tablet Oral; Duration: 90 Days Active DULoxetine HCl 60 MG Capsule Delayed Release Particles 1 capsule Orally Once a day; Duration: 30 days 11/06/2024 Active metFORMIN HCl 1000 MG Tablet 1 tablet with a meal Orally Once a day; Duration: 30 day(s) 11/06/2024 Active Social History Tobacco Use: Social History [...] complication (E11.69) Active confirmed Problem Mixed hyperlipidemia (384965491) Mixed hyperlipidemia (E78.2) Active confirmed Problem Chronic pain syndrome (011032909) Chronic pain syndrome (G89.4) Active confirmed Problem Essential hypertension (65788677) Essential hypertension (I10) Active confirmed Problem Seasonal allergy (225863590) Seasonal allergies (J30.2) Active confirmed Vital Signs Heart Rate 71 /min 07/06/2025 Temperature 96.6 degrees Fahrenheit 07/06/2025 Blood pressure diastolic 70 mm Hg 07/06/2025 Oximetry 94 % 07/06/2025 Height-cm 170.18 cm 02/02/2025 Weight-kg 76.61 kg 07/06/2025 Height 5 ft 7 in in 07/06/2025 Blood pressure systolic 110 mm Hg 07/06/2025 Weight 168.9 lbs 07/06/2025 BMI 26.45 kg/m2 07/06/2025 Procedures Procedure Date Ordered Date Performed Result Body Sit e ABG 04/03/2025 04/14/2025 N/A Encounters Encounter Location Date Provider Diagnosis [facility] [address] [place] [address] 11/06/2024 Marcello Patel Mixed sleep apnea G47.39 ; Chronic pain syndrome G89.4 ; Transverse myelitis G37.3 and Essential hypertension I10 [facility] [address] [place] [address] 02/02/2025 Tosha Alcocer Mixed sleep apnea G47.39 ; Chronic pain syndrome G89.4 ; Transverse myelitis G37.3 and Essential hypertension I10 [facility] [address] [place] [address] 04/03/2025 Tosha Alcocer Mixed sleep apnea G47.39 ; Chronic pain syndrome G89.4 ; Transverse myelitis G37.3 ; Essential hypertension I10 and Seasonal allergies J30.2 [facility] [address] [place] [address] 05/21/2025 Marcello Patel Mixed sleep apnea G47.39 ; Chronic pain syndrome G89.4 ; Transverse myelitis G37.3 ; Essential hypertension I10 and Seasonal allergies J30.2 [facility] [address] [address] 07/06/2025 Tosha Alcocer Mixed sleep apnea G47.39 ; Chronic pain syndrome G89.4 ; Transverse myelitis G37.3 ; Essential hypertension I10 and Seasonal allergies J30.2 [facility] [address] [place] [address] 11/06/2024 Marcello Patel [facility] [address] [address] 04/03/2025 Marcello Patel [facility] [address] [address] 04/14/2025 Marcello Patel [facility] [address] [place] [address] 07/03/2025 Marcello Patel [facility] [address] [address] 07/06/2025 Marcello Patel [facility] [address] [place] [address] 07/07/2025 Marcello Patel [facility] [address] [place] [address] 07/08/2025 Marcello Patel Assessments Encounter Date Diagnosis (ICD [...] bed. - Initiate auto CPAP therapy via [facility] [place], with in-person mask fitting and device education.I will follow him closely for residual apneic events. I recommended to discuss with his physician prescribing buprenorphine for alternative options if he continues to have central sleep apnea. - If unable to tolerate, consider BIPAP/ST, ASV (adaptive servo-ventilation) titration study in lab setting given high central apnea burden - Dba on importance of adherence for MINIMUM -4 hours/night, EVERY NIGHT - Follow up after 1 month of therapy to review device data and assess for residual central apnea - Discussed hypoglossal nerve stimulator if unable to tolerate positive airway pressure therapy, however cautioned it would not address central apnea - Advised against use of ozone-based CPAP transmission supervisor due to risk of device malfunction, recommend [...] sleep apnea 5. Tobacco use disorder - Dba on smoking cessation, offer pharmacotherapy and behavioral [...] setting given high central apnea burden - Dba on importance of adherence for MINIMUM -4 hours/night, EVERY NIGHT - Follow up after 2-3 month of therapy to review device data and assess for residual central apnea - Discussed hypoglossal nerve stimulator if unable to tolerate positive airway pressure therapy, however cautioned it would not address central apnea - Advised against use of ozone-based CPAP transmission supervisor due to risk of device malfunction, recommend [...] sleep apnea 5. Tobacco use disorder - Dba on smoking cessation. Recommended not to drive or operate machinery when drowsy 04/03/2025 Mixed sleep apnea (ICD-10 - G47.39) [...] central apnea 5. Tobacco use disorder - Dba on smoking cessation. Recommended not to drive or operate machinery when drowsy 04/03/2025 Chronic pain syndrome (ICD-10 - G89.4) 05/21/2025 Mixed sleep apnea (ICD-10 - G47.39) Impression & Plan: 1. Sleep-Disordered Breathing: Severe mixed sleep apnea, on central depressants for treatment of his pain, Residual AHI-10, improving over time with CPAP. AHI-51 as per initial HST Patient has been using CPAP for last 90 days but unable to continue due to frustrations with the mask. He does not want to go for in-lab titration study to assess if he needs BiPAP or BiPAP with ST due to mixed sleep apnea. He has transverse myelitis and unable to sleep in the hospital bed due to back pain.He would like to consider inspire. - Treatment planned for Issue 1: Referral to Dr. Rudy Connell, an ENT surgeon at the [facility], for evaluation regarding the Inspire device. The patient was counseled that the Inspire device is an alternative to CPAP and functions by stimulating the hypoglossal nerve to prevent throat relaxation during sleep. Potential side effects discussed included morning discomfort due to the throat not relaxing and possible taste disturbance due to nerve connection. The patient was advised that specific details about side effects would be best discussed with the surgeon who performs the procedure. The patient was informed that candidacy for Inspire requires a BMI less than 40. The patient was advised to return the current CPAP machine if the Inspire procedure is pursued. 07/06/2025 Mixed sleep apnea (ICD-10 - G47.39) Assessment: Mixed Sleep apnea Obstructive sleep apnea on CPAP therapy. Central sleep apnea component, potentially due to chronic opoid therapy for his transverse myelitis Residual AHI-10, improving over time with CPAP. AHI-51 as per initial HST Seen by ENT, Dr. Connell - not a candidate for Inspire therapy given high episodes of central apnea which is likely due to chronic opoids for his transverse myelitis. Plan: - BAsed on reivew of last 3 months, pt is not complaint with CPAP therapy due to his travels for 2 weeks where he did not bring his CPAP but he has been compliant previously and benefitting clinically from it. - Will have office staff reach out [employer] regarding the patient's supplies. The patient was on vacation, resulting in a temporary halt in CPAP use, but is now back to consistent use and benefiting from the therapy. Request reinstatement and expedited delivery of the original nasal mask equipment. - Advised to continue daily CPAP use, even when travelling. - Review CPAP efficacy in three months, with potential for six-month follow-up thereafter if improvement continues. - Counselled on potential for central apnea to be related to chronic opoids therapy for transverse myelitis. Discussed with the patient the option of consulting with the [place] specialist regarding potential dose reduction of medications, while being mindful of managing pain. - No changes to CPAP pressure settings at this time, as the auto-set function is working effectively and the patient finds it comfortable. 07/06/2025 Chronic pain syndrome (ICD-10 - G89.4) 04/03/2025 Transverse myelitis (ICD-10 - G37.3) 2. Transverse myelitis with chronic pain - Manage CPAP therapy in the setting of positional challenges and neuropathic pain - Unable to wean of off buprenorphine, but central apnea burden seems to be improved with CPAP. - Avoid escalation of opioids which may worsen central sleep apnea 05/21/2025 Chronic pain syndrome (ICD-10 - G89.4) 11/06/2024 Transverse myelitis (ICD-10 - G37.3) 02/02/2025 Chronic pain syndrome (ICD-10 - G89.4) 02/02/2025 Transverse myelitis (ICD-10 - G37.3) 11/06/2024 Essential hypertension (ICD-10 - I10) 05/21/2025 Transverse myelitis (ICD-10 - G37.3) 04/03/2025 Essential hypertension (ICD-10 - I10) 4. Hypertension - Continue current antihypertensive regimen - Potential for improvement in blood pressure control with treatment of sleep apnea 07/06/2025 Transverse myelitis (ICD-10 - G37.3) 07/06/2025 Essential hypertension (ICD-10 - I10) 04/03/2025 Seasonal allergies (ICD-10 - J30.2) Patient also has severe seasonal allergies he is seen by reliability specialist in [place]. He is getting allergy shots and says [...] days where he has severe allergy symptoms. 05/21/2025 Essential hypertension (ICD-10 - I10) 02/02/2025 Essential hypertension (ICD-10 - I10) 05/21/2025 Seasonal allergies (ICD-10 - J30.2) 07/06/2025 Seasonal allergies (ICD-10 - J30.2) 02/02/2025 Other Marcello Tee MD, directly supervised CARLOS Goins during the [...] recordReviewing Labs & RadiologyMedication Reconciliation 04/03/2025 Other Marcello Tee MD, directly supervised CARLOS Goins during the patient encounter. The patient was initially evaluated by me previously and has come for a follow up today. During today's visit, Tosha Alcocer performed patient history, physical exam, medication management under my direct supervision. I reviewed the patient's chart and agree with the assessment and treatment plan documented by Tosha Alcocer. 07/06/2025 Other Marcello Tee MD, directly supervised CARLOS Goins during the patient encounter. The patient was initially evaluated by me previously and has come for a follow up today. During today's visit, Tosha Alcocer performed patient history, physical exam, medication management. I reviewed the patient's chart, labs, imaging, discussed in detail and agree with the assessment and treatment [...] the patient recordReviewing Labs & RadiologyMedication Reconciliation Plan Of Treatment Next Appt Details Provider Name:Marcello Patel, 10/07/2025 10:45:00 AM, [address] [facility], [address], [place], [address], Insurance Providers Payer Name Payer Address Payer Phone Subscriber Number Group Number Insured Name Patient Relationship to Insured Coverage Start Date Coverage End Date [employer] [id number] [place] [address] [id number] [phone] [id number] Max Garcia Self - patient is the insured 4 Medical (General) History Medical History History ICD Code Encounter for screening for malignant ne oplasm of prostate Z12.5 Encounter for screening for depression Z 13.31 History of falling Z91.81 Mixed hyperlipidemia E78.2 Type 2 diabetes mellitus with other spec ified complication E11.69
--- OUTSIDE RECORDS SUMMARY | 2025-08-04 11:50 | XMS_ITS | Encounter Summary ---
Author Organization [facility] Address [address] [place] [address] Care Team Providers Care Head Scorer Name Role Phone George Tony MD Primary Care Provider Unavailab le Encounter Details Date Type Department Care Team (Late st Contact Info) Description 02/10/2013 Abstract [facility] at [address] [place] [address] Rohini Elizondo MD [address] [place] [address] Social History Tobacco Use Types Packs/Day Years [...] on filedocumented in this encounter Care Teams Head Scorer Relationship Specialty Start Date End Date George Tony MD PCP - General Family Medicine 09/24/12 documented as of this encounter
--- OUTSIDE RECORDS SUMMARY | 2025-08-04 11:50 | XMS_ITS | Encounter Summary ---
Author Organization [facility] Address [address] [place] [address] Care Team Providers Care Pipe Tester Name Role Phone Abdon Poole MD Primary Care Provider [phone] Won Mello MD Unavailable [phone] Flash Viera MD Unavailable [phone] Encounter Details Date Type Department Care Team (Late st Contact Info) Description 11/22/2023 Scanned Document [facility] [address] [facility] [address] [place] [address] Juan Alberto Allred MD [address] [place], [place] [id number] Social History Tobacco Use Types Packs/Day Years [...] Office Visit [facility] [id number] [address] [address] Jasmin Escobar PASantoC [address] [phone] 01/19/2026 11:00 AM EDT Office Visit [facility] ENFLD7 [address] [phone] Nora Gentile APRN [address] [phone] 02/24/2026 11:00 AM EDT Office Visit [facility] [address] [place] [address] Flash Viera MD [address] [facility] [address] [place] [address] documented as of this encounter Visit Diagnoses Not on filedocumented in this encounter Care Teams Pipe Tester Relationship Specialty Start Date End Date Abdon Poole MD [address] [address] PCP - General Internal Medicine 08/17/22 Won Mello MD 18 [place] [address] Cardiovascular Disease 04/02/23 Flash Viera MD [address] [place] [address] Surgery, Orthopedic 04/03/23 documented as of this encounter
--- OUTSIDE RECORDS SUMMARY | 2025-08-04 11:50 | XMS_ITS | Encounter Summary ---
Author Organization [facility] Address [address] [place] [address] Care Team Providers Care Deployment Specialist Name Role Phone Abdon Poole MD Primary Care Provider [phone] Won Mello MD Unavailable [phone] Flash Viera MD Unavailable [phone] Reason for Visit * Reason Onset Date Comments Medication Refill 05/19/2025 Encounter Details Date Type Department Care Team (Late st Contact Info) Description 05/19/2025 Refill [facility] [id number] 65 [facility] [address] [place] [phone] Jessie Jurado, RN [address] [place], [place] [id number] Social History Tobacco Use Types Packs/Day Years [...] Upcoming Encounters Date Type Department Care Team ([facility] st Contact Info) Description 08/05/2025 11:20 AM EDT Office Visit [facility] [id number] [address] [address] Jasmin Escobar, PASatnoC [address] [phone] 01/19/2026 11:00 AM EDT Office Visit [facility] ENFLD7 [address] [phone] Nora Gentile APRN [address] [phone] 02/24/2026 11:00 AM EDT [facility] Visit [facility] [address] [place] [address] Flash Viera MD [address] [facility] [address] [place], [place] [address] documented as of this encounter Visit Diagnoses Not on filedocumented in this encounter Care Teams Deployment Specialist Relationship Specialty Start Date End Date Abdon Poole MD [address] [place] [address] PCP - General Internal Medicine 08/17/22 Won Mello MD 18 [place] [address] Cardiovascular Disease 04/02/23 Flash Viera MD [address] [place] [address] Surgery, Orthopedic 04/03/23 documented as of this encounter
--- OUTSIDE RECORDS SUMMARY | 2025-08-04 11:50 | XMS_ITS | Encounter Summary ---
Author Organization [facility] Address [address] [place] [address] Care Team Providers Care Tax Revenue Officer Name Role Phone Abdon Poole MD Primary Care Provider [phone] Won Mello MD Unavailable Flash Viera MD Unavailable [phone] Encounter Details Date Type Department Care Team (Late st Contact Info) Description 11/18/2024 Scanned Document [facility] 31 [facility] [address] [place] [address] Juan Alberto Allred MD [address] [place], [place] [phone] Social History Tobacco Use Types Packs/Day Years [...] Office Visit [facility] [id number] [address] [phone] Jasmin Escobar PASantoC [address] [phone] 01/19/2026 11:00 AM EDT Office Visit [facility] EN[facility] [address] [phone] Nora Gentile APRN [address] [phone] 02/24/2026 11:00 AM EDT [facility] Visit [facility] [address] [place] [address] Flash Viera MD 499 [facility] [address] [place] [address] documented as of this encounter Visit Diagnoses Not on filedocumented in this encounter Care Teams Tax Revenue Officer Relationship Specialty Start Date End Date Abdon Poole MD [address] [address] PCP - General Internal Medicine 08/17/22 Won Mello MD 18 [place] [address] Cardiovascular Disease 04/02/23 Flash Viera MD [address] [place] [address] Surgery, Orthopedic 04/03/23 documented as of this encounter
--- OUTSIDE RECORDS SUMMARY | 2025-08-04 11:50 | XMS_ITS | Encounter Summary ---
Author Organization [facility] Address [address] [place] [address] Care Team Providers Care Fisher Lobster Name Role Phone Luiz Valentine MD Primary Care Provider [phone] Abdon Poole MD Primary Care Provider [phone] Won Mello MD Unavailable [phone] Flash Viera MD Unavailable [phone] Encounter Details Date Type Department Care Team (Late st Contact Info) Description 12/30/2020 Telephone [facility] Urologic Surgery [address] [phone] Jose Carlos Oconnor MD [address] [address] Social History Tobacco Use Types Packs/Day Years [...] have Coronavirus / COVID-19? No / Unsure 12/30/2020 3:49 PM EST documented as of this encounter Miscellaneous Notes * Telephone Encounter - David Billingsley MA - 12/31/2020 8:56 AM EST L/m for pt to callback to schedule 3 month follow up. * Telephone Encounter - Crissy Wells - 12/30/2020 4:10 PM EST L/m for pt to callback to schedule 3 month follow up per providers check out notes. documented in this encounter Plan of Treatment Upcoming Encounters Date Type Department Care Team (Late st Contact Info) Description 08/05/2025 11:20 AM EDT Office Visit [facility] [id number] [address] [address] Jasmin Escobar, PASantoC [address] [address] 01/19/2026 11:00 AM EDT Office Visit [facility] ENFLD[facility] [address] [phone] Nora Gentile APRN [address] [phone] 02/24/2026 11:00 AM EDT Office Visit [facility] [address] [place] [phone] Flash Viera MD 499 [facility] [address] [place] [address] documented as of this encounter Visit Diagnoses Not on filedocumented in this encounter Care Teams Fisher Lobster Relationship Specialty Start Date End Date Luiz Valentine MD [address] [place] [address] PCP - General Internal Medicine 12/01/20 08/16/22 Abdon Poole MD [address] [place] [address] PCP - General Internal Medicine 08/17/22 Won Mello MD [address] [place] [address] Cardiovascular Disease 04/02/23 Flash Viera MD [address] [place] [address] Surgery, Orthopedic 04/03/23 documented as of this encounter
--- OUTSIDE RECORDS SUMMARY | 2025-08-04 11:50 | XMS_ITS | Encounter Summary ---
Author Organization [facility] Address [address] [place] [address] Care Team Providers Care Clinical Data Programmer Name Role Phone Abdon Poole MD Primary Care Provider [phone] Won Mello MD Unavailable [phone] Flash Viera MD Unavailable [phone] Encounter Details Date Type Department Care Team (Late st Contact Info) Description 02/21/2024 Refill [facility] [address] [address] Jessie Jurado, RN [address] [place] [phone] Social History Tobacco Use Types Packs/Day Years [...] Office Visit [facility] [id number] [address] [phone] Jasmin Escobar PASantoC [address] [phone] 01/19/2026 11:00 AM EDT Office Visit [facility] ENFLD[facility] [address] [phone] Nora Gentile APRN [address] [phone] 02/24/2026 11:00 AM EDT Office Visit [facility] [address] [place] [address] Flash Viera MD 499 [facility] [address] [place] [address] documented as of this encounter Visit Diagnoses Not on filedocumented in this encounter Care Teams Clinical Data Programmer Relationship Specialty Start Date End Date Abdon Poole MD [address] [address] PCP - General Internal Medicine 08/17/22 Won Mello MD 18 [place] [address] Cardiovascular Disease 04/02/23 Flash Viera MD [address] [place] [address] Surgery, Orthopedic 04/03/23 documented as of this encounter
--- OUTSIDE RECORDS SUMMARY | 2025-08-04 11:50 | XMS_ITS | Encounter Summary ---
Author Organization [facility] Address [address] [place] [address] Care Team Providers Care Overlock Waistline Joiner Name Role Phone Abdon Poole MD Primary Care Provider Won Mello MD Unavailable [phone] Flash Viera MD Unavailable [phone] Reason for Visit * Reason Comments Med Change Request Encounter Details Date Type Department Care Team (Late st Contact Info) Description 05/01/2023 [facility]ill [facility] [address] [place] [address] 2nd [address] [place] [phone] Paloma Jordan, PA [address] [place] [address] Chronic infection of right knee (HCC) Social History Tobacco Use Types Packs/Day [...] suspected to have Coronavirus/COVID-19? No / Unsure 04/20/2023 5:53 AM EDT documented as of this encounter Plan of Treatment Upcoming Encounters Date Type Department Care Team (Late st Contact Info) Description 08/05/2025 11:20 AM EDT Office Visit [facility] [id number] [address] [phone] Jasmin Escobar PA-C [address] [phone] 01/19/2026 11:00 AM EDT Office Visit [facility] ENFLD7 [address] [phone] Nora Gentile APRN [address] [phone] 02/24/2026 11:00 AM EDT [facility] Visit [facility] [address] [place] [address] Flash Viera MD [address] [facility] [address] [place] [address] documented as of this encounter Visit Diagnoses Diagnosis Chronic infection of right knee (HCC) documented in this encounter Care Teams Overlock Waistline Joiner Relationship Specialty Start Date End Date Abdon Poole MD [address] [address] PCP - General Internal Medicine 08/17/22 Won Mello MD 18 [place] [address] Cardiovascular Disease 04/02/23 Flash Viera MD [address] [place] [address] Surgery, Orthopedic 04/03/23 documented as of this encounter
--- OUTSIDE RECORDS SUMMARY | 2025-08-04 11:50 | XMS_ITS | Encounter Summary ---
Author Organization [facility] Address [address] [place] [address] Care Team Providers Care Line Up Examiner Name Role Phone George Tony MD Primary Care Provider [phone] Radha Reyes MD Primary Care Provider [phone] Luiz Valentine MD Primary Care Provider [phone] Abdon Poole MD Primary Care Provider [phone] Won Mello MD Unavailable [phone] Flash Viera MD Unavailable [phone] Reason for Visit * Reason Comments Medication Refill Encounter Details Date Type Department Care Team (Late st Contact Info) Description 02/12/2019 Refill [facility] [address] [place] [phone] Flash Lake MD Acute pain of [...] Visit [facility] [id number] [address] [phone] Jasmin Escobar PA-C [address] [phone] 01/19/2026 11:00 AM EDT Office Visit [facility] EN[facility] [address] [phone] Nora Gentile APRN [address] [phone] 02/24/2026 11:00 AM EDT [facility] Visit [facility] [address] [place] [phone] Flash Viera MD [address] [place] [address] [address] [place] [address] documented as of this encounter Visit Diagnoses Diagnosis Acute pain of right knee documented in this encounter Care Teams Line Up Examiner Relationship Specialty Start Date End Date George Tony MD [address] [place] [address] PCP - General Internal Medicine 07/04/16 10/08/19 Radha Reyes MD [address] [place] [address] PCP - General Internal Medicine 10/09/19 11/30/20 Luiz Valentine MD 2400 [facility] [address] [place] [address] PCP - General Internal Medicine 12/01/20 08/16/22 Abdon Poole MD [address] [place] [address] PCP - General Internal Medicine 08/17/22 Won Mello MD [address] [place] [address] Cardiovascular Disease 04/02/23 Flash Viera MD [address] [place] [address] Surgery, Orthopedic 04/03/23 documented as of this encounter
--- OUTSIDE RECORDS SUMMARY | 2025-08-04 11:50 | XMS_ITS | Encounter Summary ---
Author Organization [facility] Address [address] [place] [address] Care Team Providers Care Bark Fitter Name Role Phone George Tony MD Primary Care Provider Unavailab le Encounter Details Date Type Department Care Team (Late st Contact Info) Description 10/27/2021 Scanned Document [facility] Health Information Management [address] [place] [address] External, Provider Social History Tobacco Use Types [...] on file documented as of this encounter Procedures Procedure Name Priority Date/Time Associated Diagnosis Comments PATHOLOGY/CYTOLOGY SCAN Routine 10/27/2021 documented in this encounter Results * Pathology/Cytology Scan (10/27/2021) us Provider External PATHOLOGY/CYTOLOGY ORDERABLES Final Result documented in this encounter Visit Diagnoses Not on filedocumented in this encounter Care Teams Bark Fitter Relationship Specialty Start Date End Date George Tony MD PCP - General Family Medicine 09/24/12 documented as of this encounter
--- OUTSIDE RECORDS SUMMARY | 2025-08-04 11:50 | XMS_ITS | Encounter Summary ---
Author Organization [facility] Address [address] [place] [address] Care Team Providers Care Mixer Driver Name Role Phone George Tony MD Primary Care Provider Unavailab le Encounter Details Date Type Department Care Team (Late st Contact Info) Description 03/03/2013 Scanned Document [facility] [address] [place] [address] Rohini Elizondo MD [address] [place] [address] Social History Tobacco Use Types [...] on filedocumented in this encounter Care Teams Mixer Driver Relationship Specialty Start Date End Date George Tony MD PCP - General Family Medicine 09/24/12 documented as of this encounter
--- OUTSIDE RECORDS SUMMARY | 2025-08-04 11:50 | XMS_ITS | Clinical Summary ---
Author Organization [facility] Address [address] [place] [address] Care Team Providers Care Control Chemist Name Role Phone Abdon Poole MD Primary Care Provider [phone] Allergies Active Allergy Reactions Criticality Noted Date [...] office preprocedure 4 tablet 1 06/10/2021 Active WTA-POv-YhGy-NaSulf -Na Asc-C (PLENVU) 140 g SOLRIndications:His tory [...] Risk Assessment 2022 COVID-19 Vaccine (2 - 2024-2 6 season) 2025 10/12/2021 Influenza Vaccine (#1) 2025 3, 07/22/2015 RSV Adult > 60+ Yrs or (1 - 1-dose 75+ series) 01/24/2032 Hepatitis B Vaccines Aged Out No long er eligible based on patient's age to complete this topic RSV Ped < 20 months Aged Out No longe r eligible based on patient's age to complete this topic Advance Directives For more information, please contact: [phone] Latest Code Status on File Code Status [...] the following way per . Care Teams Control Chemist Relationship Specialty Start Date End Date Abdon Poole MD [address] [place] [address] PCP - [facility] 08/14/22
--- OUTSIDE RECORDS SUMMARY | 2025-08-04 11:50 | XMS_ITS | Encounter Summary ---
Author Organization [facility] Address [address] [place] [address] Care Team Providers Care Membership Sales Manager Name Role Phone Abdon Poole MD Primary Care Provider Won Mello MD Unavailable [phone] Flash Viera MD Unavailable Encounter Details Date Type Department Care Team (Late st Contact Info) Description 10/18/2023 Telephone [facility] Surgery [place] [address] [facility] [address] [place] [phone] Jose Carlos Olsen MD [address] [address] Social History Tobacco Use Types Packs/Day Years [...] encounter Miscellaneous Notes * Telephone Encounter - Javier Peterson - 10/18/2023 1:41 PM EST LVM FOR PT TO CALL BACK AND RESCHEDULE 11/[address] OLSEN documented in this encounter Plan of Treatment Upcoming Encounters Date Type Department Care Team (Late st Contact Info) Description 08/05/2025 11:20 AM EDT Office Visit [id number] [address] [phone] Jasmin Escobar, PASantoC [address] [address] 01/19/2026 11:00 AM EDT Office Visit [facility] EN[facility] 7 [place] [phone] Nora Gentile APRN [address] [phone] 02/24/2026 11:00 AM EDT [facility] Visit [facility] [address] [place] [phone] Flash Viera MD [address] [place] [address] [place] [address] documented as of this encounter Visit Diagnoses Not on filedocumented in this encounter Care Teams Membership Sales Manager Relationship Specialty Start Date End Date Abdon Poole MD [address] [place] [address] PCP - General Internal Medicine 08/17/22 Won Mello MD [address] [place] [address] Cardiovascular Disease 04/02/23 Flash Viera MD [address] [place] [address] Surgery, Orthopedic 04/03/23 documented as of this encounter
--- OUTSIDE RECORDS SUMMARY | 2025-08-04 11:50 | XMS_ITS | Encounter Summary ---
Author Organization [facility] Address [address] [place] [address] Care Team Providers Care Commercial Attache Name Role Phone Abdon Poole MD Primary Care Provider [phone] Won Mello MD Unavailable [phone] Flash Viera MD Unavailable [phone] Encounter Details Date Type Department Care Team (Late st Contact Info) Description 12/04/2023 Prep for Surgery [facility] [address] [place] [address] [address] [place] [address] Juan Alberto Allred MD [address] [place], [place] [phone] Malfunction of spinal cord stimulator, initial encounter (HCC) (Primary Dx) Social History Tobacco Use Types [...] Visit [facility] [id number] [address] [phone] Jasmin Escobar, PASantoC [address] [phone] 01/19/2026 11:00 AM EDT Office Visit [facility] EN[facility] [address] [phone] Nora Gentile APRN [address] [phone] 02/24/2026 11:00 AM EDT [facility] [address] [place] [address] Flash Viera MD [address] [facility] [address] [place] [address] documented as of this encounter Visit Diagnoses Diagnosis Malfunction of spinal cord stimulator, initial encounter- Primary documented in this encounter Care Teams Commercial Attache Relationship Specialty Start Date End Date Abdon Poole MD [address] [place] [address] PCP - General Internal Medicine 08/17/22 Won Mello MD [address] [place] [address] Cardiovascular Disease 04/02/23 Flash Viera MD [address] [place] [address] Surgery, Orthopedic 04/03/23 documented as of this encounter
--- OUTSIDE RECORDS SUMMARY | 2025-08-04 11:50 | XMS_ITS | Clinical Summary ---
Author Organization [facility] Address [address] [place] [address] Care Team Providers Care Lockstitch Sleeve Setter Name Role Phone Abdon Poole MD Primary Care Provider [phone] Won Mello MD Unavailable [phone] Flash Viera MD Unavailable [phone] Allergies Active Allergy Reactions Criticality Noted Date Comments Erythromycin Anaphylaxis High 07/04/2016 Throat closes Macrolides And Ketolides GI Intolerance/Nausea/V omiting Low 11/01/2009 Other Other (See Comments) 12/22/2009 Pt has multiple environmental allergies causing scratchy eyes.. Medications metFORMIN (GLUCOPHAGE) 1000 MG tablet Take 1 tablet (1,000 mg total) by mouth 2 (two) times a day with meals. Last dose 03/19/18 AM. Active ferrous sulfate 325 (65 FE) MG EC tabletIndicati ons:Infection of joint (HCC) Take 1 tablet (325 mg total) by mouth 2 (two) times a day. Take 2 hours before or 4 hours after acid reducers. 60 tablet 07/21/20 Active Additional Information Patient taking differently:325 mg Oral3 times daily, Take 2 hours before or 4 hours after acid reducers., Reason: Other, Reported on 12/11/2023 amLODIPine (NORVASC) 5 MG tablet Take 1 tablet (5 mg total) by mouth every morning. 11/03/19 21 Active testosterone cypionate (DEPO-TESTOSTE DAVID CYPIONATE) 200 mg/mL injection Inject 55 mg into the shoulder, thigh, or buttocks once a week. Takes on 07/14/20 22 Active PANTOprazole (PROTONIX) 20 MG tablet Take 1 tablet (20 mg total) by mouth every morning. 01/13/20 23 Active valACYclovir (VALTREX) 1000 MG tablet Take 1 tablet (1,000 mg total) by mouth 2 (two) times a day as needed. Take for 2 doses 02/06/20 23 Active losartan-hydro CHLOROthiazide (HYZAAR) 100-12.5 MG per tablet Take 1 tablet by mouth every morning. 04/11/20 23 Active atorvastatin (LIPITOR) 20 MG tablet TAKE 1 TABLET BY MOUTH EVERYDAY AT BEDTIME 07/08/20 23 Active albuterol (PROVENTIL HFA; VENTOLIN HFA) 108 (90 Base) MCG/ACT inhaler Inhale 2 puffs 4 times daily (every 6 hours) as needed for wheezing. Active Magnesium Glycinate 100 MG Cap Take 400 mg by mouth 2 times a day. Active acetaminophen (TYLENOL) 325 MG tabletIndicati ons:Chronic infection of right knee (HCC) Take 3 tablets (975 mg total) by mouth 3 times daily (every 8 hours) as needed for mild pain or moderate pain. 42 tablet 07/28/20 23 Active senna-docusate (SENNA-S) 8.6-50 MGIndications: Chronic infection of right knee (HCC) Take 2 tablets by mouth nightly as needed for constipation. 60 tablet 07/28/20 23 Active cefadroxil (DURICEF) 500 mg capsuleIndicat ions:Infection of total joint prosthesis, subsequent encounter TAKE 1 CAPSULE BY MOUTH TWICE A DAY 180 capsule 1 09/27/20 23 Active naloxone (NARCAN) 4 mg/0.1 mL Liquid nasal spray deviceIndicati ons:Chronic, continuous use of opioids Cossayuna 4 mg as a single dose; may repeat every 2 to 3 minutes in alternating nostrils until medical assistance becomes available. Call EMS. 0.1 mL 03/21/20 24 Active minocycline (MINOCIN) 100 MG capsuleIndicat ions:Infection of total joint prosthesis, subsequent encounter Take 1 capsule (100 mg total) by mouth 2 times a day. 90 capsule 11 09/22/20 24 Active solifenacin (VESICARE) 5 MG tabletIndicati ons:Overactive bladder Take 1 tablet (5 mg total) by mouth daily. 90 tablet 3 01/20/20 25 Active DULoxetine (CYMBALTA) 60 MG capsuleIndicat ions:Transvers e myelitis (HCC),Complex regional pain syndrome type 1 of right lower extremity Take 1 capsule (60 mg total) by mouth daily. After 1-2 weeks, add 30mg for a total of 90mg daily 90 capsule 1 04/02/20 25 Active DULoxetine (CYMBALTA) 30 MG capsuleIndicat ions:Transvers e myelitis (HCC),Complex regional pain syndrome type 1 of right lower extremity TAKE 1 CAPSULE BY MOUTH EVERY DAY 90 capsule 1 04/27/20 25 Active OXcarbazepine (TRILEPTAL) 150 MG tabletIndicati ons:Transverse myelitis (HCC),Complex regional pain syndrome type 1 of right lower extremity TAKE 2 TABLETS BY MOUTH TWICE A DAY 360 tablet 1 05/19/20 25 Active meloxicam (MOBIC) 15 MG tabletIndicati ons:Infection of total joint prosthesis, subsequent encounter TAKE 1 TABLET (15 MG TOTAL) BY MOUTH DAILY. TAKE WITH FOOD IN THE MORNING 30 tablet 07/13/20 25 025 Active buprenorphine hcl (Belbuca) 750 MCG buccal filmIndication s:Transverse myelitis (HCC),Complex regional pain syndrome type 1 of right lower extremity,Digital Printer cheryl knee pain after total replacement of both knee joints,Chronic infection of right knee (HCC),Encounte r for long-term opiate analgesic use Apply 1 Film (750 mcg total) to cheek twice daily (every 12 hours). Max Daily Amount: 1,500 mcg 60 Film 07/20/20 25 025 Active HYDROmorphone (DILAUDID) 4 MG tabletIndicati ons:Transverse myelitis (HCC),Complex regional pain syndrome type 1 of right lower extremity,Digital Printer cheryl knee pain after total replacement of both knee joints Take 1 tablet (4 mg total) by mouth 2 (two) times a day as needed for severe pain. Max Daily Amount: 8 mg 30 tablet 07/20/20 25 Active meloxicam (MOBIC) 15 MG tabletIndicati ons:Infection of total joint prosthesis, subsequent encounter TAKE 1 TABLET (15 MG TOTAL) BY MOUTH DAILY. TAKE WITH FOOD IN THE MORNING 30 tablet 08/05/20 25 025 Discontinued HYDROmorphone (DILAUDID) 4 MG tabletIndicati ons:Transverse myelitis (HCC),Complex regional pain syndrome type 1 of right lower extremity,Digital Printer cheryl knee pain after total replacement of both knee joints Take 1 tablet (4 mg total) by mouth 2 (two) times a day as needed for severe pain. Max Daily Amount: 8 mg 30 tablet 06/01/20 25 025 Discontinued(R eorder) buprenorphine hcl (Belbuca) 750 MCG buccal filmIndication s:Transverse myelitis (HCC),Complex regional pain syndrome type 1 of right lower extremity,Digital Printer hceryl knee pain after total replacement of both knee joints,Chronic infection of right knee (HCC),Encounte r for long-term opiate analgesic use Apply 1 Film (750 mcg total) to cheek twice daily (every 12 hours). Do not start before June 18, 2025. Max Daily Amount: 1,500 mcg 60 Film 06/18/20 025 Discontinued(R eorder) Active Problems Problem Noted Date Diagnosed Date Malfunction of spinal cord stimulator 12/04/2023 Failed total knee arthroplasty, initial encounte r 07/24/2023 Heart disease 07/14/2023 Chronic pain 07/14/2023 Chronic infection of prosthetic knee, sequela Left bundle branch block 04/06/2023 Assessment & Plan (04/06/2023 11:50 AM EDT): Followed by scan coordinator Dr. Mello- appt 04/11/2023. HL (hearing loss) 04/06/2023 Overview (04/06/2023): bilateral hearing aides Assessment & Plan (04/06/2023 12:00 PM EDT): Uses hearing aides bilaterally. Gastroparesis 04/06/2023 Anemia 04/06/2023 Assessment & Plan (04/11/2023 3:00 PM EDT): History of iron deficiency anemia. Takes iron supplementation three times a week- continue. Preop H/H 16.3/50.4 Hypogonadism male 04/06/2023 Assessment & Plan (04/06/2023 11:54 AM EDT): Followed by urologist Dr. Oconnor- last appt 08/17/2022. Currently on testosterone injections weekly- continue as directed. Myocardial bridge 04/06/2023 Assessment & Plan (04/06/2023 11:50 AM EDT): Followed by scan coordinator Dr. Mello- appt 04/11/2023. Primary hypertension 04/06/2023 Assessment & Plan (04/06/2023 12:01 PM EDT): Blood pressure mildly elevated today- continue amlodipine 5 mg daily including the morning of surgery. Chronic, continuous use of opioids 02/12/2023 COVID-19 10/22/2021 Overview (04/06/2023): not hospitalized Assessment & Plan (04/06/2023 1:04 PM EDT): Diagnosed in 03/2022. Mild non cardiopulmonary symptoms. No hospitalization. No residual symptoms. Complex regional pain syndro me type 1 of right lower extremity 07/01/2021 Assessment & Plan (04/06/2023 11:58 AM EDT): Followed by pain management- last seen by Jose GONZALEZ on 02/12/2023. Post right knee arthroplasty pain/CRPS type I, Right knee infection of hardware 2015. Right total knee arthroplasty revision 2017. Chronic infection. Suárez DRG placed 10/09/19([facility]).+ response to LSB. Encounter for long-term opiate analgesic use 10/2020 Neuropathy of lower extremity 08/25/2019 Overview (08/25/2019): Added automatically from request for surgery [id number] Chronic pain of right knee 08/25/2019 Overview (08/25/2019): Added automatically from request for surgery [id number] Assessment & Plan (04/06/2023 11:59 AM EDT): Followed by pain management- Jose GONZALEZ- last seen 02/12/2023. Current regime: Hydromorphone ER 16mg Every day and hydromorphone 4mg BID IR prn. Post op pain management consult placed. 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 Has Medtronic spinal cord stimulator- patient states this has helped his symptoms approximately 60%. Currently on carbamazepine and duloxetine- take the morning of surgery. Chronic infection of right knee 04/04/2018 Assessment & Plan (04/11/2023 2:57 PM EDT): Planned surgical intervention of right knee synovial biopsy on 04/20/[address] Viera. Preop ESR 38 and CRP 4.77. Will hold preop abx per Dr. Viera. Hyperlipidemia 03/05/2018 Assessment & Plan (04/06/2023 12:02 PM EDT): Managed on lipitor 40 mg daily. Diabetes mellitus 03/05/2018 Assessment & Plan (04/11/2023 2:58 PM EDT): Preop Hgb A1C 6.3. Currently on metformin 1000 mg bid- hold the morning of surgery. Acid reflux 03/05/2018 Assessment & Plan (04/06/2023 11:52 AM EDT): Well controlled- currently on pantoprazole daily- take the morning of surgery. Asthma 03/05/2018 Assessment & Plan (04/06/2023 11:51 AM EDT): Mild intermittent asthma. States symptoms have improved since magnesium levels improved. Has albuterol to use as needed. No recent exacerbations. Acute blood loss anemia 11/22/2017 Overview (11/22/2017): Drop in H/H from pre op to 04/10 Acute knee pain 11/19/2017 Resolved Problems Problem Noted Date Diagnosed Date Resolved Date Sleep apnea 04/06/2023 04/06/2023 Overview (04/06/2023): hx YURI / lost wt / no CPAP/ pt denies Encounters Date Type Department Care Team Description 07/20/2025 Refill [id number] [address] [phone] Jessie Jurado RN Transverse myelitis (HCC) (Primary Dx); Complex regional pain syndrome type 1 of right lower extremity; Chronic knee pain after total replacement of both knee joints; Chronic infection of right knee (HCC); Encounter for long-term opiate analgesic use 07/13/2025 Refill [facility] [address] [phone] Flash Viera MD Infection of total joint prosthesis, subsequent encounter 06/09/2025 Refill [id number] [address] [phone] Jasmin Escobar PA-C Transverse myelitis (HCC); Complex regional pain syndrome type 1 of right lower extremity; Chronic knee pain after total replacement of both knee joints; Chronic infection of right knee (HCC); Encounter for long-term opiate analgesic use 06/01/2025 Refill [id number] [address] [phone] Jasmin Escobar PASantoC Transverse myelitis (HCC); Complex regional pain syndrome type 1 of right lower extremity; Chronic knee pain after total replacement of both knee joints 05/26/2025 Refill [facility] [address] [phone] Flash Viera MD Infection of total joint prosthesis, subsequent encounter 05/21/2025 11:00 AM EDT Office Visit [id number] [address] [place] [address] Jasmin Escobar PA-C Complex regional pain syndrome type 1 of right lower extremity (Primary Dx); Chronic knee pain after total replacement of both knee joints; Neuropathic pain of both legs; Encounter for long-term opiate analgesic use; Encounter for therapeutic drug monitoring 05/21/2025 Travel 05/19/2025 Refill [id number] [address] [phone] Jessie Jurado RN 05/18/2025 [facility]ill [facility] [address] [phone] Flash Viera MD Infection of total joint prosthesis, subsequent encounter 05/15/2025 Refill [facility] [address] [place] [phone] Juan Alberto Allred MD Transverse myelitis (HCC); Complex regional pain syndrome type 1 of right lower extremity; Chronic knee pain after total replacement of both knee joints; Chronic infection of right knee (HCC); Encounter for long-term opiate analgesic use from Last 3 Months Immunizations Immunization Administration Dates Next Due Influenza Inactivated/Split Preservative Free IM 07/19/2018 Influenza, Quadrivalent (FLU AD) Adjuvanted Preservative Free IM 65 years and older 07/28/2023 Family History Medical History Relation Name Comments Diabetes Brother Heart disease Brother No Known Problems Maternal Aunt Arthritis Mother Diabetes Mother Pulmonary Hypertension Sister Relation Name Status Comments Brother Alive Father Maternal Aunt Mother Sister Son Alive Social History Tobacco Use Types Packs/Day Years Used Date Smoking Tobacco: Never Smokeless Tobacco: Never Tobacco Cessation:Counseling Given: Not Answered Alcohol Use Standard Drinks/Week Comments Yes 0 [...] Orientation Heterosexual (straight) 04/20 5:51 AM EDT Last Filed Vital Signs Vital Sign Reading Time Taken Comments Blood Pressure 142/73 05/21/2025 10:56 AM EDT Pulse 75 05/21/2025 10:56 AM EDT Temperature 36.1 C (97 F) 03/13/2025 1:03 PM EDT Respiratory Rate 18 05/21/2025 10:56 AM EDT Oxygen Saturation 96% 05/21/2025 10:56 AM EDT Inhaled Oxygen Concentration - - Weight 82.6 kg (182 lb) 05/21/2025 10:56 AM EDT Height 170.2 cm (5' 7 ) 05/21/2025 10:56 AM EDT Body Mass Index 28.51 05/21/2025 10:56 AM EDT Plan of Treatment Upcoming Encounters Date Type Department Care Team (Late st Contact Info) Description 08/05/2025 11:20 AM EDT Office Visit [id number] [address] [phone] Jasmin Escobar PA-C [address] [phone] 01/19/2026 11:00 AM EDT Office Visit [facility] [id number] [address] [facility] [address] [place] [address] Nora Gentile APRN [facility] [address] [place] [phone] 02/24/2026 11:00 AM EDT Office Visit [facility] [address] [place] [phone] Flash Viera MD [address] [facility] [address] [place], [place] [phone] Health Maintenance Due Date Last Done Comments Hepatitis C Virus Screening 1957 Foot Exam 1967 Lipid Panel 1967 Ophthalmology Exam 1967 Microalbumin/Creatinine Ratio Urine 1975 DTaP/Tdap/Td Vaccines (1 - Tdap) 01/24/1976 Pneumococcal Vaccines 50+ (1 of 2 - PCV) 01/24/1976 Colonoscopy 2002 Zoster (Shingles) Vaccine (1 of 2) 2007 RSV Vaccine 60 years and older and Patients (1 - Risk 60-74 years 1-dose series) 2017 Hemoglobin A1C 01/16/2024 07/18/2023, 0904/2023, 04/06/2023, Additional history exists Creatinine with GFR 04/22/2025 04/22/2024, 12/11/2023, 09/11/2023, Additional history exists Influenza Vaccine 05/22/2025 11/04/2024, , 07/19/2018, Additional history exists COVID-19 Vaccine ( season) 2025 10/12/2021, 01/24/2021, 12/28/2020 Chronic Controlled Substance User PDMP Review 08/19/2025 05/21/2025, 03/13/2025, 02/27/2025, Additional history exists Chronic Controlled Substance Toxicology Screening 03/13/2026 03/13/2025, 03/13/2025, 11/28/2024, Additional history exists Controlled Substance Agreement Initial and Annual Review 03/13/2026 03/13/2025 Advance Care Planning Completed 08/30/2023 Hepatitis B Vaccines Aged Out No long er eligible based on patient's age to complete this topic Medical Devices Implanted Type Area Director Of Academic Device Identifier Shelf Expiration Date Model / Serial / Lot Injex Bi-Wing [place] Accessory Kit Implanted:Qty: 1 on 08/14/2016 by Flash Lake MD at [facility] [place] [employer] MINIMALLY INVASIVE T 05/09/2020 [id number] / / [id number] Cement Bone Smpx P Tbr Fd Radiopaque Preblend Sterl - [id number] Implanted:Qty: 3 on 11/19/2017 by Bakari Mahmood MD at [facility] Cement Right: Knee [employer] - DIV STR 04/20/2018 6197-9- 001 / / [id number] Cement Bone Smpx P Tbr Fd Radiopaque Preblend Sterl - [id number] Implanted:Qty: 3 on 03/20/2018 by Bakari Mahmood MD at [facility] Cement Right: Knee [employer] - DIV STR 06/21/2019 6197-9- 001 / / [id number] Rechargeble Neurostimulator Implanted:Qty: 1 on 08/14/2016 by Flash Lake MD at [facility] Generator [employer] MINIMALLY INVASIVE T [id number] 05/04/2017 [id number] / [id number] / Stem Femoral 150mm 13mm Total Stab Pf Trthln Knee - [id number] Implanted:Qty: 1 on 03/20/2018 by Bakari Mahmood MD at [facility] Joint Prosthesis Right: Knee [employer] - DIV STR [id number] 11/16/2022 5566-S- 013 / / [id number] E Stem Femoral 150mm 12mm Cemtls Total Stab Trthln Ti Knee - [id number] Implanted:Qty: 1 on 03/20/2018 by Bakari Mahmood MD at [facility] Joint Prosthesis Right: Knee [employer] - DIV STR [id number] 11/11/2022 5566-S- 012 / / [id number] E Augment Femoral 5mm Trthln 6 Knee Right Total Stab - [id number] Implanted:Qty: 1 on 03/20/2018 by Bakari Mahmood MD at [facility] Joint Prosthesis Right: Knee [employer] - DIV STR [id number] 04/26/2022 5540-A- 602 / / [id number] Augment Femoral 5mm Trthln 6 Knee Right Total Stab - [id number] Implanted:Qty: 1 on 03/20/2018 by Bakari Mahmood MD at [facility] Joint Prosthesis Right: Knee [employer] - DIV STR [id number] 04/26/2022 5540-A- 602 / / [id number] Augment Femoral 5mm Trthln 6 Knee Posterior Total Stab - [id number] Implanted:Qty: 1 on 03/20/2018 by Bakari Mahmood MD at [facility] Joint Prosthesis Right: Knee [employer] - DIV STR [id number] 04/10/2022 5543-A- 600 / / [id number] Augment Femoral 5mm Trthln 6 Knee Posterior Total Stab - [id number] Implanted:Qty: 1 on 03/20/2018 by Bakari Mahmood MD at [facility] Joint Prosthesis Right: Knee [employer] - DIV STR [id number] 06/14/2022 5543-A- 600 / / [id number] Adapter Femoral Trthln 2mm Offset Knee Total Stab - [id number] Implanted:Qty: 1 on 03/20/2018 by Bakari Mahmood MD at [facility] Joint Prosthesis Right: Knee [employer] - DIV STR [id number] 10/24/2022 5570-S- 020 / / [id number] H Baseplate Tibial Trthln 5 Univ Knee Cmnt Total Stab Cocr - [id number] Implanted:Qty: 1 on 03/20/2018 by Bakari Mahmood MD at [facility] Joint Prosthesis Right: Knee [employer] - DIV STR [id number] 01/16/2023 5521-B- 500 / / [id number] Component Femoral 6 Knee Right Total Stab Trthln Cocr - [id number] Implanted:Qty: 1 on 03/20/2018 by Bakari Mahmood MD at [facility] Joint Prosthesis Right: Knee [employer] - DIV STR [id number] 05/07/2022 5512-F- 602 / / [id number] Augment Tibial 5mm Trthln 5 Right Medial Left Lateral - [id number] Implanted:Qty: 1 on 03/20/2018 by Bakari Mahmood MD at [facility] Joint Prosthesis Right: Knee [employer] - DIV STR [id number] 11/09/2022 5545-A- 502 / / [id number] Augment Tibial 5mm Trthln 5 Left Medial Right Lateral Total - [id number] Implanted:Qty: 1 on 03/20/2018 by Bakari Mahmood MD at [facility] Joint Prosthesis Right: Knee [employer] - DIV STR [id number] 01/10/2022 5545-A- 501 / / [id number] Insert Tibial 5 13mm Knee X3 Total Stab Plus Trthln - [id number] Implanted:Qty: 1 on 03/20/2018 by Bakari Mahmood MD at [facility] Joint Prosthesis Right: Knee [employer] - DIV STR [id number] 08/10/2022 5537-G- 513 / / [id number] Insert Tibial 5 13mm Knee X3 Total Stab Plus Trthln - [id number] Implanted:Qty: 1 on 07/17/2018 by Bakari Mahmood MD at [facility] Joint Prosthesis Right: Knee [employer] - DIV STR [id number] 12/04/2022 5537-G- 513 / / [id number] Insert Tibial 5 11mm Knee X3 Total Stab Plus Trthln Sterl Lf - [id number] Implanted:Qty: 1 on 07/24/2023 by Flash Viera MD at [facility] Joint Prosthesis Right: Knee [employer] - DIV STR [id number] 04/03/2026 5537-G- 511-E / / [id number] Vectris Surescan Mri Implanted:Qty: 1 on 08/14/2016 by Flash Lake MD at [facility] Lead [employer] MINIMALLY INVASIVE T 05/12/2020 [id number] 0 / / [id number] Permanent Spinal Cord Stimulator Implanted:Qty: 1 on 10/09/2019 by Flash Lake MD at [facility] Lead Right: Back [employer] - AN ABBOT 07/31/2021 [id number] -50A / [id number] / Description:Right lumbar spi ne Slim Tip Drg Permanent Spinal Coed Stimulator Implanted:Qty: 1 on 10/09/2019 by Flash Lake MD at [facility] Lead Right: Back [employer] - AN ABBOT 03/25/2021 [id number] -50A / [id number] / Description:lumbar Slim Tip Drg Trial Lead Kit-Suárez Implanted:Qty: 1 on 08/08/2019 by Flash Lake MD at [facility] Stimulator N/A: Spine Lumbar Other 01/30/2021 [id number] -50A / [id number] / Slim Tip Drg Trial Lead Kit- Suárez Implanted:Qty: 1 on 08/08/2019 by Flash Lake MD at [facility] Stimulator N/A: Spine Lumbar Other 01/30/2021 [id number] -50A / [id number] / [id number] Neurostimulator Implant 47.2x57.1mm Intellis Adaptivestim - [id number] Implanted:Qty: 1 on 12/17/2023 by Juan Alberto Allred MD at [facility] Stimulator N/A: Back [employer] MINIMALLY INVASIVE T 10/04/2024 95542 / [id number] / Vectris Surescan Mri Implanted:Qty: 1 on 08/14/2016 by Flash Lake MD at [facility] [employer] MINIMALLY INVASIVE T 06/15/2020 977A-60 / / [id number]g Implantable Pulse Generator Implanted:Qty: 1 on 10/09/2019 by Flash Lake MD at [facility] Left: Back [employer] - AN ABBOT 10/29/2020 3664 / [id number] / Explanted Type Area Director Of Academic Device Identifier Shelf Expiration Date Model / Serial / Lot Drg Big Curve Delivery Sheath Kit Explanted:Qt y: 1 on 10/09/2019 by Flash Lake MD at [facility] Miscellaneous Right: Back [employer] - AN ABBOT 02/15/2020 [id number] / / [id number] Description:NOT AN IMPLANT - here for charging purposes only. NO CHARGE PER SUÁREZ REP Drg External Pulse Generator 2 Port Header-Abbot t Explanted:Qt y: 1 on 08/08/2019 by Flash Lake MD at [facility] Stimulator N/A: Spine Lumbar Other 12/30/2020 7032 / [id number] / Description:not an implant-p lease charge Drg External Pulse Generator, 2 Port Header Explanted:Qt y: 1 on 10/09/2019 by Flash Lake MD at [facility] Right: Back [employer] - AN ABBOT 02/25/2021 7032 / [id number] / Description:NOT IMPLANTED - here for charging purposes only Procedures Procedure Name Priority Date/Time Associated Diagnosis Comments DRUG MONITORING, PANEL 6 WITH CONFIRMATION, URINE Routine 03/13/2025 2:05 PM EDT Encounter for long-term opiate analgesic use Encounter for therapeutic drug monitoring BASIC METABOLIC PANEL Routine 04/22/2024 9:39 AM EDT Transverse myelitis (HCC) HEMOGLOBIN A1C WITH ESTIMATED AVERAGE GLUCOSE Routine 07/18/2023 2:16 PM EDT Preop examination Infected prosthetic knee joint, subsequent encounter Type 2 diabetes mellitus without complication, unspecified whether senior living insulin use (HCC) Mild intermittent asthma without complication Primary hypertension from Last 3 Months or Most Recently Relevant to Health Maintenance Results * Drug Monitoring, Panel 6 With Confirmation, Urine (Q 54864) (03/13/2025 2:05 PM EDT) Alcohol Metabolites NEGATIVE <500 ng/mL [facility] Amphetamines, Urine Ql NEGATIVE <500 ng/mL [employer] Barbiturates NEGATIVE <300 ng/mL [employer] Benzodiazepines NEGATIVE <100 ng/mL [employer] Cocaine Metabolite NEGATIVE <150 ng/mL [employer] 6 Acetylmorphine NEGATIVE <10 ng/mL [employer] Marijuana Metabolite NEGATIVE <20 ng/mL [employer] Methadone Metabolite NEGATIVE <100 ng/mL [employer] Opiates NEGATIVE <100 ng/mL [employer] Oxycodone Screen, Urine NEGATIVE <100 ng/mL [employer] Phencyclidine, Urine NEGATIVE <25 ng/mL [employer] Creatinine, Urine 117.1 > or = 20.0 mg/dL [employer] pH 5.2 4.5 - 9.0 [employer] Oxidant NEGATIVE <200 mcg/mL [facility] Notes and Comments [facility] Comment: This drug testing is for medical treatment only. Analysis was performed as non-forensic testing and these results should be used only by healthcare providers to render diagnosis or treatment, or to monitor progress of medical conditions. Buprenorphine Notes: Buprenorphine, Norbuprenorphine detected is consistent with the use of the drug(s) Buprenorphine or Buprenorphine with Naloxone. Naloxone may be negative due to poor oral bioavailability and/or short half-life. LDT Notes: Confirmation tests were developed and their analytical performance characteristics have been determined by [facility]. It has not been cleared or approved by the FDA. This assay has been validated pursuant to the CLIA regulations and is used for clinical purposes. Healthcare Providers needing Interpretation assistance, please contact us at [phone] ( ) M-F, 8am to 10pm EST Urine Urine specimen / Unknown 03/13/2025 2:05 PM EDT 03/14/2025 4:55 AM EDT us Jasmin Escobar PA-C URINE ORDERABLES Final Resul t [facility] [address] [place] [phone] * (ABNORMAL) Basic metabolic panel (04/22/2024 9:39 AM EDT) Glucose 181(H) 65 - 99 mg/dL [facility] Comment: Fasting reference interval For someone without known diabetes, a glucose value >125 mg/dL indicates that they may have diabetes and this should be confirmed with a follow-up test. Blood Urea Nitrogen (BUN) 40(H) 7 - 25 mg/dL [facility] Creatinine 1.23 0.70 - 1.35 mg/dL [facility] Creatinine w/ eGFR 64 > OR = 60 mL/min/1.7 3m2 [facility] BUN/Creatinine Ratio 33(H) 6 - 22 (calc) [facility] Sodium 138 135 - 146 mmol/L [facility] Potassium 4.7 3.5 - 5.3 mmol/L [facility] Chloride 97(L) 98 - 110 mmol/L [facility] CO2 33(H) 20 - 32 mmol/L [facility] Calcium 10.1 8.6 - 10.3 mg/dL [facility] Blood specimen (specimen) Blood specimen / Unknown 04/22/2024 9:39 AM EDT 04/22/2024 9:39 AM EDT us Juan Alberto Allred MD LAB BLOOD ORDERABLES Final R esult [facility] [address] [place] [phone] * (ABNORMAL) Hemoglobin A1c with Estimated Average Glucose (07/18/2023 2:16 PM EDT) Hemoglobin A1C 6.7(H) <5.7 % 07/18/2023 6:56 PM EDT [facility] Comment: A1c% Interpretation 5.7 - 6.0 Increase risk of diabetes 6.1 - 6.4 Higher risk of diabetes > or = 6.5 Consistent with diabetes Diabetes Care, 33(Supp 1):S1-S61, 2010 Estimated Average Glucose 146 mg/dL 07/18/2023 6:56 PM EDT [facility] Blood specimen (specimen) Blood specimen / Unknown 07/18/2023 2:16 PM EDT 07/18/2023 5:37 PM EDT us Teresa Dobbins PA-C LAB BLOOD ORDERABLES Final Result HOSPITAL LAB See Below [facility] [address] [facility] [address] from Last 3 Months or Most Recently Relevant to Health Maintenance Insurance [facility] MEDICARE [facility] MEDICARE [facility] MEDICARE [facility] MEDICARE Advance Directives Documents on File Type Date Recorded Patient Commissioning Engineer Expl anation Advance Directive-Scan 08/30/2023 LABS Advance Directive-Scan 08/22/2023 LABS Advance Directive-Scan 08/14/2023 LABS Advance Directive-Scan 08/09/2023 [employer] NCARE ORDERS Advance Directive-Scan 08/08/2023 LABS Advance Directive-Scan 08/01/2023 LABS * Full Code (Latest Code Status on File) Date Activated Date Inactivated Comments 07/30/2023 7:44 AM 08/16/2023 8:00 AM Full Code * Full Code Date Activated Date Inactivated Comments 07/24/2023 4:16 PM 07/30/2023 7:44 AM * Full Code Date Activated Date Inactivated Comments 07/24/2023 11:02 AM 07/24/2023 4:16 PM * Full Code Date Activated Date Inactivated Comments 04/20/2023 10:36 AM 07/24/2023 10:43 AM * Full Code Date Activated Date Inactivated Comments 04/20/2023 5:59 AM 04/20/2023 10:36 AM Care Teams Lockstitch Sleeve Setter Relationship Specialty Start Date End Date Abdon Poole MD [address] [place] [address] PCP - General Internal Medicine 08/17/22 Won Mello MD [address] [place] [address] Cardiovascular Disease 04/02/23 Flash Viera MD [address] [place] [address] Surgery, Orthopedic 04/03/23
--- OUTSIDE RECORDS SUMMARY | 2025-08-04 11:50 | XMS_ITS | Encounter Summary ---
Author Organization [facility] Address [address] [place] [address] Care Team Providers Care Fur Mixer Name Role Phone Abdon Poole MD Primary Care Provider [phone] Won Mello MD Unavailable [phone] Flash Viera MD Unavailable [phone] Encounter Details Date Type Department Care Team (Late st Contact Info) Description 01/18/2024 Scanned Document [facility] [address] [facility] [address] [place] [address] Juan Alberto Allred MD [address] [place], [place] [phone] Social History Tobacco Use Types Packs/Day Years [...] Office Visit MG PAIN MGMT [id number] [address] [address] Jasmin Escobar PASantoC [address] [phone] 01/19/2026 11:00 AM EDT Office Visit [facility] UROLOGY ENFLD7 [address] [phone] Nora Gentile APRN [address] [phone] 02/24/2026 11:00 AM EDT [facility] [address] [place] [address] Flash Viera MD 499 [facility] [address] [place] [address] documented as of this encounter Visit Diagnoses Not on filedocumented in this encounter Care Teams Fur Mixer Relationship Specialty Start Date End Date Abdon Poole MD [address] [address] PCP - General Internal Medicine 08/17/22 Won Mello MD 18 [place] [address] Cardiovascular Disease 04/02/23 Flash Viera MD [address] [place] [address] Surgery, Orthopedic 04/03/23 documented as of this encounter
--- OUTSIDE RECORDS SUMMARY | 2025-08-04 11:50 | XMS_ITS | Encounter Summary ---
Author Organization [facility] Address [address] [place] [address] Care Team Providers Care Per Diem Physical Therapist Assistant Name Role Phone George Tony MD Primary Care Provider Unavailab le Encounter Details Date Type Department Care Team (Late st Contact Info) Description 12/19/2012 Scanned Document [facility] [address] 6[address] [place] [address] Social History Tobacco Use Types Packs/Day Years [...] on filedocumented in this encounter Care Teams Per Diem Physical Therapist Assistant Relationship Specialty Start Date End Date George Tony MD PCP - General Family Medicine 09/24/12 documented as of this encounter
--- OUTSIDE RECORDS SUMMARY | 2025-08-04 11:50 | XMS_ITS | Encounter Summary ---
Author Organization [facility] Address [address] [place] [address] Care Team Providers Care Roll Contour Grinder Name Role Phone George Tony MD Primary Care Provider Unavailab le Encounter Details Date Type Department Care Team (Late st Contact Info) Description 11/03/2021 Scanned Document [facility] Health Information Management [address] [place] [address] External, Provider Social History Tobacco Use Types [...] on filedocumented in this encounter Care Teams Roll Contour Grinder Relationship Specialty Start Date End Date George Tony MD PCP - General Family Medicine 09/24/12 documented as of this encounter
--- OUTSIDE RECORDS SUMMARY | 2025-08-04 11:50 | XMS_ITS | Encounter Summary ---
Author Organization [facility] Address [address] [place] [address] Care Team Providers Care Food Service Worker Hospital Name Role Phone George Tony MD Primary Care Provider Unavailab le Encounter Details Date Type Department Care Team (Late st Contact Info) Description 11/15/2021 Scanned Document [facility] Health Information Management [address] [place] [address] External, Provider Social History Tobacco Use Types [...] on filedocumented in this encounter Care Teams Food Service Worker Hospital Relationship Specialty Start Date End Date George Tony MD PCP - General Family Medicine 09/24/12 documented as of this encounter
--- OUTSIDE RECORDS SUMMARY | 2025-08-04 11:50 | XMS_ITS | Clinical Summary ---
Author Organization [facility] Address [address] [place] [address] Care Team Providers Care Welfare Specialist Name Role Phone Abdon Poole MD Primary Care Provider [phone] Allergies Active Allergy Reactions Criticality Noted Date [...] 1 (one) time each day. 4 Active [id number] rce-EaLq-STy-as b-C 140-9-5.2 gram powder in packet, sequential [...] FOR HEARTBURN. 180 tablet 1 5 Active famotidine (Pepcid) 20 mg tablet Take 1 tablet (20 mg total) by mouth 2 (two) times a day if needed for heartburn. 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/26/2016 Encounters Date Type Department Care Team Description 07/01/2025 Telephone [facility] [place] [address] [place] [address] [place], [place] 05/07/2025 11:00 AM EDT Office [facility] [address] [place] [phone] Melanie Truong NP Gastroesophageal reflux disease, unspecified whether esophagitis present (Primary Dx); History of gastric ulcer; Diverticulosis of colon from Last 3 Months Surgical History Surgery Date Site/Laterality Comments UPPER GASTROINTESTINAL ENDOSCOPY PROCEDURE:UPPER GASTROINTESTINAL ENDOSCOPY COLONOSCOPY 2014 PROCEDURE:COLONOSCOPY Medical History Medical History Date Comments [...] Sign Reading Time Taken Comments Blood Pressure 136/78 05/07/2025 11:06 AM EDT Pulse 91 05/07/2025 11:06 AM EDT Temperature - - Respiratory Rate - - Oxygen Saturation - - Inhaled Oxygen Concentration - - Weight 79.4 kg (175 lb) 05/07/2025 11:06 AM EDT Height 170.2 cm (5' 7 ) 05/07/2025 11:06 AM EDT Body Mass Index 27.41 05/07/2025 11:06 AM EDT Plan of Treatment Upcoming Encounters Date Type Department Care Team (Late st Contact Info) Description 08/06/2025 1:20 PM EDT Office [facility] [address] [place] [phone] Whit Vegas MD [address] [phone] Health Maintenance Due Date Last Done Comments Colorectal Cancer Screening: Colonoscopy 1957 Diabetes: Annual Foot Exam 1967 Diabetes: Annual Retina Eye Exam 1967 DTaP,Tdap,and Td Vaccines (1 - Tdap) 01/24/1976 Hepatitis A Vaccines (1 of 2 - Risk 2-dose series) 01/24/1976 Pneumococcal Vaccine: 50+ Years (1 of 2 - PCV) 01/24/1976 Zoster Vaccines (1 of 2) 2007 RSV Immunization Adult Patients (1 - Risk 60-74 years 1-dose series) 2017 Cholesterol Screening (Lipid Panel) 09/24/2022 Falls Risk Assessment 09/24/2022 Hepatitis C Screening 09/24/2022 Medicare Annual Wellness Visit 09/24/2022 Social Influencers of Health Screening 09/24/2022 Depression Screening 10/22/2024 Diabetes: Annual GFR (Glomerular Filtration Rate) 04/22/2025 04/22/2024, 04/22/2024, 12/11/2023, Additional history exists Diabetes: Annual Urine Albumin-Creatinine Ratio (uACR) 05/08/2025 Diabetes: Blood Sugar Control Test (HGBA1C) 05/08/2025 07/18/2023, 07/18/2023 Hypertension/CHF/CAD Annual BMP Blood Test 05/08/2025 04/22/2024, 04/22/2024, 12/11/2023, Additional history exists COVID-19 Vaccine ( season) 2025 Influenza Vaccine (#1) 2025 07/28/2023, 2014 HIB Vaccines Aged Out No longer eligi [...] to complete this topic RSV Immunization Patients Under 20 months Aged Out No longer eligible based on patient's age to complete this topic Varicella Vaccines Aged Out No longer eligible based on patient's age to complete this topic Procedures Procedure Name Priority Date/Time Associated Diagnosis Comments ANNUAL BMP BLOOD TEST Routine 04/22/2024 HEMOGLOBIN A1C Routine 07/18/2023 from Last 3 Months or Most Recently Relevant to Health Maintenance Results * Annual BMP Blood Test (04/22/2024) Annual BMP Blood Test abstracted Historical Provider HEALTH MAINTENANCE Final Result * Hemoglobin A1c (07/18/2023) Pathologist [facility] Hemoglobin A1C 0.0 % Comment:abstracted, no inter pretation Blood Venous blood specimen / Unknown [facility] Provider LAB BLOOD ORDERABLES Nadiya l Result from Last 3 Months or Most Recently Relevant to Health Maintenance Insurance [employer] MED[employer]ARE ADVANTAGE Care Teams Welfare Specialist Relationship Specialty Start Date End Date Abdon Poole MD [address] [place] [address] 200 [place] [address] PCP - General Internal Medicine 05/07/25
--- OUTSIDE RECORDS SUMMARY | 2025-08-04 11:50 | XMS_ITS | Encounter Summary ---
Author Organization [facility] Address [address] [place] [address] Care Team Providers Care Elevator Troubleshooter Name Role Phone Abdon Poole MD Primary Care Provider [phone] Won Mello MD Unavailable [phone] Flash Viera MD Unavailable [phone] Reason for Visit * Reason Comments Medication Problem Encounter Details Date Type Department Care Team (Late st Contact Info) Description 02/20/2024 Telephone [facility] Urologic Surgery [address] [place] [address] Jose Carlos Oconnor MD [address] [place] [address] Medication Problem Social History Tobacco Use Types Packs/Day Years [...] encounter Miscellaneous Notes * Telephone Encounter - Shavon Salguero LPN - 02/20/2024 3:01 PM EDT Spoke with patient He was informed that the script has been faxed with confirmation He should expect a call from the pharmacy documented in this encounter Plan of Treatment Upcoming Encounters Date Type Department Care Team (Late st Contact Info) Description 08/05/2025 11:20 AM EDT Office Visit MG PAIN MGMT [id number] [address] [phone] Jasmin Escobar PA-C [address] [phone] 01/19/2026 11:00 AM EDT Office Visit [facility] UROLOGY ENFLD7 [address] [phone] Nora Gentile APRN [address] [phone] 02/24/2026 11:00 AM EDT [facility] [address] [place] [address] Flash Viera MD [address] [place] [address] [place], [place] [phone] documented as of this encounter Visit Diagnoses Not on filedocumented in this encounter Care Teams Elevator Troubleshooter Relationship Specialty Start Date End Date Abdon Poole MD [address] [place] [address] PCP - General Internal Medicine 08/17/22 Won Mello MD [address] [place] [address] Cardiovascular Disease 04/02/23 Flash Viera MD [address] [place] [address] 100 [place] [address] Surgery, Orthopedic 04/03/23 documented as of this encounter
--- OUTSIDE RECORDS SUMMARY | 2025-08-04 11:50 | XMS_ITS | Encounter Summary ---
Author Organization [facility] Address [address] [place] [address] Care Team Providers Care Carriage Dogger Name Role Phone Luiz Valentine MD Primary Care Provider [phone] Abdon Poole MD Primary Care Provider [phone] Won Mello MD Unavailable [phone] Flash Viera MD Unavailable [phone] Reason for Visit * Reason Comments Medication Refill Encounter Details Date Type Department Care Team (Late st Contact Info) Description 12/24/2020 Refill [facility] [address] [place] [phone] Flash Lake MD Neuropathic pain of both legs Social History Tobacco Use Types Packs/Day Years [...] have Coronavirus / COVID-19? No / Unsure 12/22/2020 11:19 AM EST documented as of this encounter Plan of Treatment Upcoming Encounters Date Type Department Care Team (Late st Contact Info) Description 08/05/2025 11:20 AM EDT Office Visit MG PAIN MGMT [id number] [address] [address] Jasmin Escobar, PASantoC [address] [phone] 01/19/2026 11:00 AM EDT Office Visit [facility] UROLOGY ENFLD7 [address] [phone] Nora Gentile APRN [address] [phone] 02/24/2026 11:00 AM EDT Office Visit [facility] [address] [place] [address] Flash Viera MD 499 [facility] [address] [place] [address] documented as of this encounter Visit Diagnoses Diagnosis Neuropathic pain of both legs documented in this encounter Care Teams Carriage Dogger Relationship Specialty [place] [address] [place] [address] PCP - General Internal Medicine 12/01/20 08/16/22 Abdon Poole MD [facility] [address] [address] PCP - General Internal Medicine 08/17/22 Won Mello MD [address] [place] [address] Cardiovascular Disease 04/02/23 Flash Viera MD [address] [place] [address] Surgery, Orthopedic 04/03/23 documented as of this encounter
--- OUTSIDE RECORDS SUMMARY | 2025-08-04 11:50 | XMS_ITS | Encounter Summary ---
Author Organization [facility] Address [address] [place] [address] Care Team Providers Care Skip Load Driver Name Role Phone George Tony MD Primary Care Provider Unavailab le Encounter Details Date Type Department Care Team (Late st Contact Info) Description 11/20/2012 Abstract [facility] [address] 6th [place] [address] Rohini Elizondo MD [address] [place] [address] Social History Tobacco Use Types [...] on filedocumented in this encounter Care Teams Skip Load Driver Relationship Specialty Start Date End Date George Tony MD PCP - General Family Medicine 09/24/12 documented as of this encounter
--- OUTSIDE RECORDS SUMMARY | 2025-08-04 11:50 | XMS_ITS | Clinical Summary ---
Author Organization [facility] [address] Address [address] [place] [address] Care Team Providers Care Functional Mental Disability Teacher Name Role Phone George Tony MD [...] and tingling 07/22/2012 Asthma 07/11/2012 Diabetes mellitus 07/11/2012 High cholesterol 07/11/2012 Family History Medical [...] Standard Series) 2007 Diabetes screening 11/06/2015 11/06/2012 Influenza vaccine 05/22/2025 Covid-19 vaccine series (2023-25 season) 2025 RSV Immunization (1 - 1-dose 75+ series) 01/24/2032 Meningococcal B Vaccine Aged Out No l onger eligible based on patient's age to complete this topic Meningococcal Vaccine Aged Out No marco antonio reynaldo eligible based on patient's age to complete this topic Procedures Procedure Name Priority Date/Time Associated Diagnosis Comments GLUCOSE ([facility] LMW Q YH) Routine 11/06/2012 3:53 PM EST from Last 3 Months or Most Recently Relevant to Health Maintenance Results * Glucose ( GH Q YH) (11/06/2012 3:53 PM EST) Glucose 75 70 - 100 mg/dL [facility] 11/06/2012 3:53 PM EST Narrative [facility] - 11/06/2012 4:47 PM EST Collection time required-include time drawn on label us Rohini Elizondo MD LAB BLOOD ORDERABLES Final Res ult [facility] [address] [place] [address] from Last 3 Months or Most Recently Relevant to Health Maintenance Insurance [facility] MEDICARE [facility] MEDICARE [facility] MEDICARE [facility] MEDICARE Care Teams Functional Mental Disability Teacher Relationship Specialty Start Date End Date George Tony MD PCP - General Family Medicine 09/24/12
--- OUTSIDE RECORDS SUMMARY | 2025-08-04 11:50 | XMS_ITS | Encounter Summary ---
Author Organization [facility] Address [address] [place] [address] Care Team Providers Care Polygraph Operator Name Role Phone Luiz Valentine MD Primary Care Provider [phone] Abdon Poole MD Primary Care Provider [phone] Won Mello MD Unavailable [phone] Flash Viera MD Unavailable [phone] Encounter Details Date Type Department Care Team (Late st Contact Info) Description 12/01/2020 Telephone [facility] Urologic Surgery [address] [place] [phone] Jose Carlos Oconnor MD [address] [address] Social History Tobacco Use Types Packs/Day Years [...] have Coronavirus / COVID-19? No / Unsure 12/01/2020 10:53 AM EST documented as of this encounter Miscellaneous Notes * Telephone Encounter - Melissa Pollack - 12/01/2020 3:17 PM EST [facility] returned call[facility] * Telephone Encounter - David Billingsley MA - 12/01/2020 1:17 PM EST Lm for pt to call back and schedule a TRUS SIZING with [address] tech and also a 4 week follow up per providers check out note. documented in this encounter Plan of Treatment Upcoming Encounters Date Type Department Care Team (Late st Contact Info) Description 08/05/2025 11:20 AM EDT Office Visit [facility] PAIN MGMT [id number] [address] [phone] Jasmin Escobar, PASantoC [address] [phone] 01/19/2026 11:00 AM EDT Office Visit [facility] UROLOGY ENFLD7 7 [place] [phone] Nora Gentile APRN [address] [phone] 02/24/2026 11:00 AM EDT [facility] Visit [facility] [address] [place] [phone] Flash Viera MD 499 [facility] [address] [place] [address] documented as of this encounter Visit Diagnoses Not on filedocumented in this encounter Care Teams Polygraph Operator Relationship Specialty Start Date End Date Luiz Valentine MD [address] [place] [address] PCP - General Internal Medicine 12/01/20 08/16/22 Abdon Poole MD [address] [place] [address] PCP - General Internal Medicine 08/17/22 Won Mello MD [address] [place] [address] Cardiovascular Disease 04/02/23 Flash Viera MD [address] [place] [address] Surgery, Orthopedic 04/03/23 documented as of this encounter
--- OUTSIDE RECORDS SUMMARY | 2025-08-04 11:50 | XMS_ITS | Encounter Summary ---
Author Organization [facility] Address [address] [place] [address] Care Team Providers Care Senior Marketing Coordinator Name Role Phone Abdon Poole MD Primary Care Provider [phone] Won Mello MD Unavailable [phone] Flash Viera MD Unavailable [phone] Encounter Details Date Type Department Care Team (Late st Contact Info) Description 02/21/2024 Scanned Document [facility] [address] [facility] [address] [place] [address] Juan Alberto Allred MD [address] [place], [place] [phone] Social History Tobacco Use Types Packs/Day Years [...] Office Visit MG PAIN MGMT [id number] [address] [phone] Jasmin Escobar PASantoC [address] [phone] 01/19/2026 11:00 AM EDT Office Visit [facility] UROLOGY ENFLD7 [address] [phone] Nora Gentile APRN [address] [phone] 02/24/2026 11:00 AM EDT [facility] Visit [facility] [address] [place] [address] Flash Viera MD 499 [facility] [address] [place] [address] documented as of this encounter Visit Diagnoses Not on filedocumented in this encounter Care Teams Senior Marketing Coordinator Relationship Specialty Start Date End Date Abdon Poole MD [address] [address] PCP - General Internal Medicine 08/17/22 Won Mello MD 18 [place] [address] Cardiovascular Disease 04/02/23 Flash Viera MD [address] [place] [address] Surgery, Orthopedic 04/03/23 documented as of this encounter
--- OUTSIDE RECORDS SUMMARY | 2025-08-04 11:50 | XMS_ITS | Encounter Summary ---
Author Organization [facility] Address [address] [place] [address] Care Team Providers Care Animal Treatment Investigator Name Role Phone Abdon Poole MD Primary Care Provider Won Mello MD Unavailable [phone] Flash Viera MD Unavailable [phone] Encounter Details Date Type Department Care Team (Late st Contact Info) Description 04/02/2023 Refill [facility] [address] [phone] Jessie Jurado, RN [address] [phone] Transverse myelitis (HCC); Chronic infection of right knee (HCC) Social History Tobacco Use Types Packs/Day Years Used Date Smoking Tobacco: Never Smokeless Tobacco: Never Alcohol Use Standard Drinks/Week Comments Yes 0 (1 standard drink = 0.6 oz pur e alcohol) 3x a week at most AUDIT-C Answer Date Recorded Q1: [...] AM EDT documented as of this encounter Functional Status * Audit-C Score Answer Date of Assessment Author 1 04/03/2023 2:13 PM EDT Donte Albert, GRETEL * Question Answer Date of Assessment Author AUDIT-C Total Score - Male 1 04/03/2023 2:1 3 PM EDT Stacey Albert RN Q1: How often do you have a drink containing alcohol? Monthly or less 04/03/2023 2:13 PM EDT Stacey Albert RN Q2: How many drinks containing alcohol do you have on a typical day when you are drinking? 1 or 2 04/03/2023 2:13 PM EDT Stacey Albert RN Q3: How often do you have six or more drinks on one occasion? Never 04/03/2023 2:13 PM EDT Stacey Albert, RN documented as of this encounter Plan of Treatment Upcoming Encounters Date Type Department Care Team (Late st Contact Info) Description 08/05/2025 11:20 AM EDT Office Visit [facility] [id number] [address] [phone] Jasmin Escobar, PASantoC [address] [phone] 01/19/2026 11:00 AM EDT Office Visit [facility] [id number] [address] [phone] Nora Gentile APRN [address] [phone] 02/24/2026 11:00 AM EDT [facility] Visit [facility] [address] [place] [address] Flash Viera MD [address] [place], [place] [phone] documented as of this encounter Visit Diagnoses Diagnosis Transverse myelitis (HCC) Other causes of myelitis Chronic infection of right knee (HCC) documented in this encounter Care Teams Animal Treatment Investigator Relationship Specialty Start Date End Date Abdon Poole MD [address] [place] [phone] PCP - General Internal Medicine 08/17/22 Won Mello MD [address] [place] [address] Cardiovascular Disease 04/02/23 Flash Viera MD [address] [place] [id number] Surgery, Orthopedic 04/03/23 documented as of this encounter
--- OUTSIDE RECORDS SUMMARY | 2025-08-04 11:51 | XMS_ITS | Encounter Summary ---
Author Organization [facility] Address [address] [place] [address] Care Team Providers Care Senior Procurement Manager Name Role Phone George Tony MD Primary Care Provider Unavailab le Encounter Details Date Type Department Care Team (Late st Contact Info) Description 01/10/2013 Scanned Document [facility] [address] [place] [address] Rohini Elizondo MD [address] [place] [address] Social History Tobacco Use Types [...] filedocumented in this encounter Care Teams Senior Procurement Manager Relationship Specialty Start Date End Date George Tony MD PCP - General Family Medicine 09/24/12 documented as of this encounter
--- OUTSIDE RECORDS SUMMARY | 2025-08-04 11:51 | XMS_ITS | Encounter Summary ---
Author Organization [facility] Address [address] [place] [address] Care Team Providers Care Email Marketing Manager Name Role Phone George Tony MD Primary Care Provider Unavailab le Encounter Details Date Type Department Care Team (Late st Contact Info) Description 01/22/2013 Scanned Document [facility] [address] [place] [address] Rohini Elizondo MD [address] [place] [address] Social History Tobacco Use Types [...] on filedocumented in this encounter Care Teams Email Marketing Manager Relationship Specialty Start Date End Date George Tony MD PCP - General Family Medicine 09/24/12 documented as of this encounter
--- OUTSIDE RECORDS SUMMARY | 2025-08-04 11:51 | XMS_ITS | Encounter Summary ---
Author Organization [facility] and [facility] Address [address] [place] [address] Care Team Providers Care Conditioning Room Worker Name Role Phone George Tony MD Primary Care Provider Unavailab le Encounter Details Date Type Department Care Team (Late st Contact Info) Description 01/15/2013 Scanned Document [facility] [address] [place] [address] Rohini Elizondo MD [address] [place] [address] Social History Tobacco Use Types [...] on filedocumented in this encounter Care Teams Conditioning Room Worker Relationship Specialty Start Date End Date George Tony MD PCP - General Family Medicine 09/24/12 documented as of this encounter
--- OUTSIDE RECORDS SUMMARY | 2025-08-04 11:51 | XMS_ITS | Encounter Summary ---
Author Organization [facility] and [facility] Address [address] [place] [address] Care Team Providers Care Aircraft Seat Upholsterer Name Role Phone George Tony MD Primary Care Provider Unavailab le Encounter Details Date Type Department Care Team (Late st Contact Info) Description 01/10/2013 Scanned Document [facility] [address] [place] [address] Rohini Elizondo MD [address] [place] [address] Social History Tobacco Use Types [...] on filedocumented in this encounter Care Teams Aircraft Seat Upholsterer Relationship Specialty Start Date End Date George Tony MD PCP - General Family Medicine 09/24/12 documented as of this encounter
--- OUTSIDE RECORDS SUMMARY | 2025-08-04 11:51 | XMS_ITS | Encounter Summary ---
Author Organization [facility] Address [address] [place] [address] Care Team Providers Care Side Door Worker Name Role Phone George Tony MD Primary Care Provider Unavailab le Encounter Details Date Type Department Care Team (Late st Contact Info) Description 01/15/2013 Scanned Document [facility] [address] [place] [address] Rohini Elizondo MD [address] [place] [address] Social History Tobacco Use Types [...] on filedocumented in this encounter Care Teams Side Door Worker Relationship Specialty Start Date End Date George Tony MD PCP - General Family Medicine 09/24/12 documented as of this encounter
--- OUTSIDE RECORDS SUMMARY | 2025-08-04 11:51 | XMS_ITS | Encounter Summary ---
Author Organization [facility] and [facility] Address [address] [place] [address] Care Team Providers Care Size Tester Name Role Phone George Tony MD Primary Care Provider Unavailab le Encounter Details Date Type Department Care Team (Late st Contact Info) Description 01/22/2013 Scanned Document [facility] [address] [place] [address] Rohini Elizondo MD [address] [place] [address] Social History Tobacco Use Types [...] on filedocumented in this encounter Care Teams Size Tester Relationship Specialty Start Date End Date George Tony MD PCP - General Family Medicine 09/24/12 documented as of this encounter
--- OUTSIDE RECORDS SUMMARY | 2025-08-04 11:51 | XMS_ITS | Encounter Summary ---
Author Organization [facility] Address [address] [place] [address] Care Team Providers Care Dormitory Supervisor Name Role Phone George Tony MD Primary Care Provider Unavailab le Encounter Details Date Type Department Care Team (Late st Contact Info) Description 01/15/2013 Scanned Document [facility] [address] [address] Rohini Elizondo MD [address] [place] [address] Social History Tobacco Use Types [...] on filedocumented in this encounter Care Teams Dormitory Supervisor Relationship Specialty Start Date End Date George Tony MD PCP - General Family Medicine 09/24/12 documented as of this encounter
== END 2025-08-04 10:12 | disposition home or self-care (01) ==
LOC: HO.BBR 10:11
PROVIDERS: Visit Provider Family Medicine
DX: D75.1 Secondary polycythemia (principal)
CPT/HCPCS: 85018; 99195